=== PATIENT | male | born 1945 | race Caucasian/White ===

== ENCOUNTER → 2016-08-27 | Outpatient (CLI) | payer OTHER ==
[~2016-08-27] MED LIST: ASPEC81 PO; ASPI81TA21 PO; FLM4 PO; GLUCOSAMINE PO; GLUCTAB7 PO; LOSA25TA18 PO; METO50TA7 PO; MULT-506 PO; NTRGSL/4 UT; OMEG10007 PO; PRLSR20 PO; SIMV40TA2 PO; SYN75 PO; TAMS0.4C38 PO
[2016-08-27 14:02] LABS: BLOOD UREA NITROGEN 14 mg/dl (7-18); BUN/CREATININE RATIO 13.1 (10-20); CARBON DIOXIDE 29 mmol/L (21-32); CHLORIDE 107 mmol/L (98-107); CHOLESTEROL 105 mg/dl (0-200); CHOLESTEROL/HDL RATIO 3.8; GLUCOSE 102 mg/dl (70-99); HDL CHOLESTEROL 28 mg/dl; POTASSIUM 4.6 mmol/L (3.5-5.1); SODIUM 143 mmol/L (136-145); TRIGLYCERIDES 109 mg/dl (0-150); VERY LOW DENSITY LIPOPROT CALC 22 mg/dl
[2016-08-27 14:08] LABS: CALCIUM 8.5 mg/dl (8.5-10.1)
[2016-08-27 14:51] LABS: ESTIMATED AVERAGE GLUCOSE 105 mg/dl; HA1C FLAG Normal (Normal)
--- NOTE | 2016-09-02 08:18 | CODING QUERY MEDICAL NECESSITY ---
SUPPORTING DIAGNOSIS NEEDED A supporting diagnosis is required for the test/procedure performed on this patient in order for us to be reimbursed by the patient's insurance. Please provide a supporting diagnosis for the following test/procedure listed below next to the test name along with your signature. *If there is no additional diagnosis for this patient that would support the following test/procedure please document that below next to the test/procedure. Test(s)/Procedure(s) that require a supporting diagnosis: * HEMOGLOBIN A1C DIAGNOSIS: Provider Signature: Date: Thank you Ofe Rey Zalando Information Management Once completed, please kindly fax back to [phone] For questions please call [phone]
== END | disposition home or self-care (01) ==
LOC: C.LABSPEC 12:12
PROVIDERS: ATTEND Internal Medicine
DX: E78.5 Hyperlipidemia, unspecified (principal); I10 Essential (primary) hypertension; N40.1 Benign prostatic hyperplasia with lower urinary tract symptoms; N13.8 Other obstructive and reflux uropathy; R73.9 Hyperglycemia, unspecified

== ENCOUNTER 2017-01-16 15:21 | Inpatient (IN) | payer OTHER ==
[~2017-01-16] VITALS: Ht 180.3 cm; Wt 120.6 kg
[~2017-01-16 15:21] MED LIST changes: -ASPI81TA21 PO; -GLUCTAB7 PO; -SYN75 PO; -TAMS0.4C38 PO
[2017-01-16] MEDS ORDERED: ASPIRIN 81 MG CHEW PO STA (15:35)
[2017-01-16] MEDS: NITROGLYCERIN 0.4 MG SL PER TAB CHARGE SL PRN ×2 (15:47→17:07)
[2017-01-16 15:57] LABS: BASO % 0.6 %; BASO ABS # 0.05 K/uL (0-0.2); COMPLETE YES; HEMATOCRIT 43.1 % (42-52); IG% 0.4 %; LYMPH % 29.8 %; LYMPH ABS # 2.54 K/uL (1.2-3.4); MEAN CELL VOLUME 85.3 fL (80-100); MEAN CORPUSCULAR HEMOGLOBIN 29.7 pg (25-34); MEAN CORPUSCULAR HGB CONC 34.8 g/dl (32-36); MEAN PLATELET VOLUME 9.5 fL (7.4-10.4); MONO % 4.9 %; NEUT % 62.3 %; PLATELET COUNT 142 K/uL (130-400); RED BLOOD COUNT 5.05 M/uL (4.7-6.1); WHITE BLOOD COUNT 8.52 K/uL (4.8-10.8)
--- NOTE | 2017-01-16 15:58 | DIAGNOSTIC IMAGING REPORT ---
SINGLE VIEW CHEST CLINICAL HISTORY: Atypical chest pain. FINDINGS: An AP, portable, upright chest radiograph is compared to chest x-ray and chest CT dated 01/02/2012. The examination is degraded by portable technique, large body habitus, and patient rotation. The patient is status post midline sternotomy. The heart is enlarged and there is atherosclerotic calcification of the thoracic aorta. There is mild pulmonary vascular congestion. There is chronic elevation of right hemidiaphragm with bibasilar atelectasis. No large pleural effusion or pneumothorax is seen. The skeletal structures are osteopenic. The bony thorax is grossly intact. IMPRESSION: 1. Cardiomegaly with mild pulmonary vascular congestion. 2. No airspace consolidation or large pleural effusion is seen. Electronically signed by: Oliver Newman M.D. 01/16/2017 3:57 PM Dictated Date/Time: 01/16/2017 3:56 PM
[2017-01-16] MEDS ORDERED: TAMS0.4C38 PO (16:08)
[2017-01-16] MEDS ORDERED: GLUCTAB7 PO (16:08)
[2017-01-16] MEDS ORDERED: ASPI81TA21 PO (16:08)
[2017-01-16 16:15] LABS: BLOOD UREA NITROGEN 21 mg/dl (7-18); BUN/CREATININE RATIO 18.5 (10-20); CALCIUM 8.7 mg/dl (8.5-10.1); CARBON DIOXIDE 29 mmol/L (21-32); CHLORIDE 108 mmol/L (98-107); CREATININE 1.13 mg/dl (0.60-1.40); GLUCOSE 112 mg/dl (70-99); SODIUM 142 mmol/L (136-145)
[2017-01-16] MEDS ORDERED: NITROGLYCERIN 0.4 MG SL PER TAB CHARGE SL PRN (17:45)
--- NOTE | 2017-01-16 17:47 | DIAGNOSTIC IMAGING REPORT ---
HEAD WITHOUT CONTRAST (CT) CLINICAL HISTORY: 71 years-old Male presenting with blurry vision, chest pain. TECHNIQUE: Multidetector CT imaging of the head was performed without the use of intravenous contrast. IV contrast: None. A dose lowering technique was used consistent with the principles of ALARA (as low as reasonably achievable). COMPARISON: None. CT DOSE (mGy.cm): The estimated cumulative dose is 601.98 mGy.cm. FINDINGS: Tilesetter topogram: Unremarkable. Ventricles and sulci normal in size. Periventricular and subcortical white matter hypoattenuation, nonspecific but likely indicative of chronic small vessel ischemic change. No mass effect or midline shift. No hemorrhage or acute territorial infarct. No extra-axial fluid collection. Paranasal sinuses and mastoid air cells clear. Calvarium intact. IMPRESSION: 1. No acute intracranial pathology. Electronically signed by: Ozzy Esquivel M.D. 01/16/2017 5:45 PM Dictated Date/Time: 01/16/2017 5:44 PM
--- NOTE | 2017-01-16 18:52 | History and Physical ---
History & Physical Date of Service Jan 16, 2017. History & Physical ADMISSION DATE : 01/16/2017 CHIEF COMPLAINT : 71-year-old male admitted with persistent chest pain. He has known coronary artery disease with history of 5 vessel coronary artery bypass graft. PRESENT ILLNESS : Patient with multiple medical problems including coronary artery disease. Status post 5 vessel coronary artery bypass graft in 2005, arterial hypertension , hypercholesterolemia, gastroesophageal reflux, obesity. His last cardiac catheterization was done in 2013 and at that time there were no additional areas of stenosis that required any intervention. Patient was sitting at home around 2:00 in the afternoon wound. He was doing paperwork. He suddenly experienced some feeling in his chest. He had difficulty describing it. He described it as somebody punched in the chest and the area is aching. No radiation of the discomfort. No associated diaphoresis. No shortness of breath. No dizziness or lightheadedness. Did not feel nauseous. He described this pain different than what he has experienced in the past. He does have recurrent chest pain mostly of GI etiology but he described this episode as completely different. His called the office wanted to bring him to the office to be checked but I recommended that she brings him directly to the emergency room. Patient was evaluated by Dr. Whitman. So far all his tests were quite unremarkable. His electrocardiogram did not show any acute changes. His troponin I is normal. He was given sublingual nitroglycerin. That gave him relief. He has not had any recurrent chest pain. During his stay in the emergency room he was complaining of some visual disturbance. He thought the door was not straight. Dr. Whitman ordered a CT scan of the head without contrast and that was done and was quite unremarkable. The episode of the visual disturbance was very short lasting. I saw the patient in the emergency room. He was resting comfortably. Wasa not complaining of any chest pain. In view of that episode of chest pain that he had an his extensive coronary history patient is being admitted for further evaluation. PAST MEDICAL HISTORY : * Coronary artery disease. On 01/01/2006 he was having a dobutamine stress echocardiogram because of chest pain. His test was markedly positive showing evidence of anteroseptal ischemia and marked apical ischemia. He will became hypotensive. He was admitted to the progressive care unit at that time and arrangements were made for transfer to [facility]. Patient was seen by Dr. Yuen and he had a 5 vessel coronary artery bypass graft. The procedure was very well tolerated. He has done well. In 2014 he had recurrent chest pain. He was evaluated by Dr. Tim Bang and had a repeat cardiac catheterization. No new lesions were noted that required any intervention. * Arterial hypertension. Long-standing. Treated. * Hypercholesterolemia. He is on Zocor 40 mg daily with adequate control * Appendectomy in the remote past * Tonsillectomy in the remote past * Known diverticulosis * Long-standing obesity enlargement of the prostate. He is on Flomax. * SOCIAL HISTORY : He is . Had 2 children. He never smoked. No alcohol. No drugs. No excessive coffee or tea or soft drinks. He works in the [employer] business. FAMILY HISTORY : His mother at age 74 of myocardial infarction. His father had Parkinson's disease and heart disease. ALLERGIES : None CURRENT MEDICATIONS : As noted on his home medication list REVIEW OF SYSTEMS : As noted at this time is resting comfortably. No headache or dizziness. No further visual disturbance. No earaches or throat or neck pain. No chest pain pressure or tightness. No shortness of breath. No cough. No sputum or hemoptysis. No abdominal pain no nausea no vomiting. No problem with his bowel movements. No problem urinating. No pain in his back or extremities. No ankle edema. PHYSICAL EXAMINATION : General: Well-developed. No distress. His weight is 118 kg, height 180.3 cm, BMI 36.3. Vital signs: Blood pressure 168/81, pulse 87, respirations 16, temperature 36.8 , oxygen saturation 95% on room air Skin is warm and dry. No rash. He does have multiple areas of subcutaneous lipomas. HEENT: No evidence of any mucosal abnormalities Neck is supple without lymph node or thyroid enlargement. No JVD. No Lawrence pulses. No carotid bruit Chest scar from prior surgery Heart regular heart sounds. No evident murmur rub or gallop. Lungs are clear. No wheezing no rhonchi. Abdomen is obese soft nontender without organomegaly or masses. Surgical scar. Back no spinal or CVA tenderness. Extremities: No edema clubbing or cyanosis. No joint or muscle tenderness. Good pulses. Neurological examination: He is awake alert and oriented. There is no evidence of any deficit. No further visual disturbance. No lateralized deficits. LABORATORY TESTS : WBC count 8520, hemoglobin 15, hematocrit 43.1, platelet count 142,000. Sodium 142, potassium 4.0, chloride 108, CO2 29, BUNs 21, creatinine 1.13, glucose 112, calcium 8.7, total CK 100, MB fraction 2, troponin I less than 0.015. Chest x-ray showed no acute changes or significant abnormalities. CT scan of the head without contrast was normal. ASSESSMENT : * Chest pain * Coronary artery disease * History of 5 vessel coronary artery bypass graft * Arterial hypertension * Hyperlipidemia * Obesity * Gastroesophageal reflux * Episode of visual disturbance. Short lasting. PLAN : Patient is admitted to PCU with telemetry. Resuscitation level I. All his laboratory tests were ordered. Cardiac isoenzymes and serial electrocardiograms were ordered. Echocardiogram was ordered. He was continued on his medications. Also started on topical nitrates. We will wait for the initial evaluation. He will need a stress test done if everything is negative. Otherwise we'll may have to proceed directly to a cardiac catheterization. I spoke with the patient and his family in the emergency room. His condition is stable right now. Explained to them the workup intended.
[2017-01-16 19:32] VITALS: BP 127/66; PULSE 60; TEMP 36.7; O2SAT 96
[2017-01-16 19:51] LABS: PROTHROMBIN TIME (PATIENT) 10.8 SECONDS (9.0-12.0)
[2017-01-16 20:05] LABS: MAGNESIUM 2.1 mg/dl (1.8-2.4); THYROID STIMULATING HORMONE 5.87 uIu/ml (0.300-4.500)
[2017-01-16] MEDS: NITROGLYCERIN OINT 2% 1GM PACKET EXT SCH (20:12)
[2017-01-16] MEDS: ASPIRIN 81 MG ECTAB PO SCH (20:15)
[2017-01-16] MEDS: SIMVASTATIN 40 MG TAB PO SCH (20:15)
--- NOTE | 2017-01-16 21:06 | EMERGENCY ROOM VISIT NOTE ---
History Report prepared by Kanika: Angel Carmichael Under the Supervision of: Dr. Kendell Whitman D.O. First contact with patient: 15:28 Chief Complaint: CHEST PAIN Stated Complaint: CHEST PAIN History of Present Illness The patient is a 71 year old male who presents to the Emergency Room with complaints of constant left sided chest pain beginning one hour ago. He describes his pain as a feeling of "pressure". He has a history of chest pain, but states that his current pain feels unlike his previous pain. The patient has a history of CABG. He took NTG for his symptoms today which improved his pain. He is on baby aspirin daily. The patient denies shortness of breath, nausea, vomiting, diarrhea, or urinary symptoms. He has no personal history of blood clots. Source of History: patient Onset: One hour ago Position: chest (left) Quality: pressure Timing: constant Modifying Factors (Relieving): other (NTG) Associated Symptoms: No SOB, No nausea, No vomiting, No diarrhea, No urinary symptoms Review of Systems See HPI for pertinent positives & negatives. A total of 10 systems reviewed and were otherwise negative. Past Medical & Surgical Medical Problems: (1) CHEST PAIN, ASHD (2) HTN (hypertension) Surgical Problems: (1) Hx of CABG Family History No pertinent family history stated. Social History Smoking Status: Never Smoker Marital Status: Occupation Status: employed Current/Historical Medications Scheduled Aspirin Enteric Coated (Ecotrin Or Generic), 81 MG PO HS Fish Oil (Goldsmith-3), 1 CAP PO DAILY Wmjxlqlnzsz-Xwykrrdethk-Isx C- (Glucosamine Chondroitin), 1 TAB PO QAM Losartan Potassium (Cozaar), 25 MG PO DAILY Metoprolol Succ (Toprol Xl) (Toprol-Xl), 50 MG PO DAILY Multivitamin (Multivitamin), 1 TAB PO DAILY Omeprazole (Prilosec), 20 MG PO DAILY Simvastatin (Zocor), 40 MG PO QPM Tamsulosin Hcl (Flomax), 0.4 MG PO QAM Scheduled PRN Nitroglycerin (Nitrostat), 0.4 MG UT PRN PRN for Chest Pain Allergies Coded Allergies: No Known Allergies (Verified , 01/16/17) Physical Exam Vital Signs Date Time Temp Pulse Resp B/P (MAP) Pulse Ox O2 Delivery O2 Flow Rate FiO2 01/16/17 17:19 91 18 132/75 95 Room Air 01/16/17 17:07 63 18 125/62 97 Room Air 01/16/17 16:19 65 01/16/17 15:50 93 16 136/73 97 Room Air 01/16/17 15:24 36.8 87 16 168/81 95 Room Air Physical Exam GENERAL: Obese, sitting up in bed, nontoxic, no acute distress EYE EXAM: normal conjunctiva. OROPHARYNX: no exudate, no erythema, lips, buccal mucosa, and tongue normal and mucous membranes are moist NECK: supple, no nuchal rigidity, no adenopathy, non-tender LUNGS: Clear to auscultation. Normal chest wall mechanics HEART: no murmurs, S1 normal and S2 normal ABDOMEN: abdomen soft, non-tender, normo-active bowel sounds, no masses, no rebound or guarding. BACK: Back is symmetrical on inspection and there is no deformity, no midline tenderness, no CVA tenderness. SKIN: no rashes and no bruising UPPER EXTREMITIES: upper extremities are grossly normal. LOWER EXTREMITIES: No pitting edema. Calves equal bilaterally. NEURO EXAM: Normal sensorium, cranial nerves II-XII grossly intact, normal speech, no gross weakness of arms, no gross weakness of legs. No drift. Finger to nose intact. Gross sensation intact. Medical Decision & Procedures ER Provider Diagnostic Interpretation: Radiology results as stated below per my review and the radiologist's interpretation: SINGLE VIEW CHEST FINDINGS: An AP, portable, upright chest radiograph is compared to chest x-ray and chest CT dated 01/02/2012. The examination is degraded by portable technique, large body habitus, and patient rotation. The patient is status post midline sternotomy. The heart is enlarged and there is atherosclerotic calcification of the thoracic aorta. There is mild pulmonary vascular congestion. There is chronic elevation of right hemidiaphragm with bibasilar atelectasis. No large pleural effusion or pneumothorax is seen. The skeletal structures are osteopenic. The bony thorax is grossly intact. IMPRESSION: 1. Cardiomegaly with mild pulmonary vascular congestion. 2. No airspace consolidation or large pleural effusion is seen. Electronically signed by: Oliver Newman M.D. 01/16/2017 3:57 PM Laboratory Results 01/16/17 15:45 Red Blood Count 5.05, Mean Corpuscular Volume 85.3, Mean Corpuscular Hemoglobin 29.7, Mean Corpuscular Hemoglobin Concent 34.8, Mean Platelet Volume 9.5, Neutrophils (%) (Auto) 62.3, Lymphocytes (%) (Auto) 29.8, Monocytes (%) (Auto) 4.9, Eosinophils (%) (Auto) 2.0, Basophils (%) (Auto) 0.6, Neutrophils # (Auto) 5.31, Lymphocytes # (Auto) 2.54, Monocytes # (Auto) 0.42, Eosinophils # (Auto) 0.17, Basophils # (Auto) 0.05 01/16/17 15:45 Test 01/16/17 15:45 White Blood Count 8.52 K/uL (4.8-10.8) Red Blood Count 5.05 M/uL (4.7-6.1) Hemoglobin 15.0 g/dL (14.0-18.0) Hematocrit 43.1 % (42-52) Mean Corpuscular Volume 85.3 fL (80-100) Mean Corpuscular Hemoglobin 29.7 pg (25-34) Mean Corpuscular Hemoglobin Concent 34.8 g/dl (32-36) Platelet Count 142 K/uL (130-400) Mean Platelet Volume 9.5 fL (7.4-10.4) Neutrophils (%) (Auto) 62.3 % Lymphocytes (%) (Auto) 29.8 % Monocytes (%) (Auto) 4.9 % Eosinophils (%) (Auto) 2.0 % Basophils (%) (Auto) 0.6 % Neutrophils # (Auto) 5.31 K/uL (1.4-6.5) Lymphocytes # (Auto) 2.54 K/uL (1.2-3.4) Monocytes # (Auto) 0.42 K/uL (0.11-0.59) Eosinophils # (Auto) 0.17 K/uL (0-0.5) Basophils # (Auto) 0.05 K/uL (0-0.2) RDW Standard Deviation 42.1 fL (36.4-46.3) RDW Coefficient of Variation 13.7 % (11.5-14.5) Immature Granulocyte % (Auto) 0.4 % Immature Granulocyte # (Auto) 0.03 K/uL (0.00-0.02) Anion Gap 5.0 mmol/L (3-11) Est Creatinine Clear Calc Drug Dose 80.6 ml/min Estimated GFR () 76.4 Estimated GFR (Non- 66.0 BUN/Creatinine Ratio 18.5 (10-20) Calcium Level 8.7 mg/dl (8.5-10.1) Total Creatine Kinase 100 U/L (39-308) Creatine Kinase MB 2.0 ng/ml (0.5-3.6) Creatine Kinase MB Ratio 2.0 (0-3.0) Troponin I < 0.015 ng/ml (0-0.045) Laboratory results per my review. Medications Administered Medications (Trade) Dose Ordered Sig/Venkatesh Route Start Time Stop Time Status Last Admin Dose Admin Aspirin (Aspirin Chew) 324 mg NOW STAT PO 01/16/17 15:35 01/16/17 15:36 DC 01/16/17 15:47 324 MG Nitroglycerin (Nitrostat Tab) 0.4 mg Q5M PRN SL 01/16/17 15:45 01/16/17 19:21 DC 01/16/17 17:07 0.4 MG ECG Indication: chest pain Rate (beats per minute): 52 Rhythm: sinus bradycardia Findings: Q waves (Inferior), other (normal intervals) Change: Repeat ECG reveals a sinus bradycardia with a rate of 53 bpm. Inferior Q waves noted. No ectopy seen. No significant change from previous ECG. ED Course ED COURSE: Vital signs were reviewed and showed hypertension The patients medical record was reviewed The above diagnostic studies were performed and reviewed. ED treatments and interventions as stated above. 1529: The patient was evaluated in room B11B. A complete history and physical examination was performed. 1535: Ordered Aspirin Chew 324 mg PO. 1545: Ordered Nitrostat 0.4 mg SL. 1600: I reassessed the patient. His pain has resolved completely with nitroglycerin. 1715: Upon reevaluation, the patient is resting comfortably. He notes that he has had blurry vision since arrival and the door currently appears curved. I discussed my findings with the patient and he understands and agrees with the treatment plan. Based on the patients age, coexisting illnesses, exam and lab findings the decision to treat as an inpatient was made. The patient remained stable while under my care. The patient will be evaluated for further management. Medical Decision Differential diagnoses includes but is not limited to acute coronary syndrome, myocardial infarction, pericarditis, pulmonary embolus, aortic dissection, pneumonia, pneumothorax, musculoskeletal, shingles, esophageal. Patient is a 71-year-old male who presents to ER for chest pressure which started around 2:30 this afternoon. He denies any shortness of breath. He notes nitroglycerin helped with the pain. Upon arrival he said it is still having the pain. He was given nitroglycerin and he said the pain completely resolved. Later in his evaluation he admits pain never really went away and he also is having blurry vision. CT head was performed and was given additional nitroglycerin. CT head was negative. EKG was nondiagnostic. Troponin was negative. Chest x-ray was unremarkable. Patient was updated bedside. He is admitted to internal medicine with precordial chest pain improved by nitroglycerin with a history of a previous bypass. Medication Reconcilliation Current Medication List: was personally reviewed by me Blood Pressure Screening Patient's blood pressure: Elevated blood pressure Blood pressure disposition: Elevated BP felt to be situational Consults Time Called: 1703 Consulting Physician: Dr. Camarena [facility] Returned Call: 1715 I reviewed the patient's case with Dr. Camarena. He will evaluate the patient for further management. Impression Primary Impression: Precordial chest pain Additional Impression: Blurry vision Scribe Attestation The scribe's documentation has been prepared under my direction and personally reviewed by me in its entirety. I confirm that the note above accurately reflects all work, treatment, procedures, and medical decision making performed by me. Departure Information Dispostion Being Evaluated By Hospitalist Referrals Trev Castellanos M.D. (PCP) Patient Instructions My [facility] Problem Qualifiers
[2017-01-16 21:12] VITALS: BP 127/66; PULSE 60; TEMP 36.7; O2SAT 96; Ht 180.3 cm; Wt 120.6 kg
[2017-01-16] MEDS: HEPARIN SOD 5000 UNIT/0.5 ML CARP SQ SCH (21:39)
[2017-01-16 23:01] VITALS: BP 119/66; PULSE 62; TEMP 36.5; O2SAT 96
[2017-01-17] VITALS (10 sets, daily range): BP systolic 122–155; BP diastolic 68–80; PULSE 53–65; TEMP 36.6–37; O2SAT 95–97
[2017-01-17] MEDS: NITROGLYCERIN OINT 2% 1GM PACKET EXT SCH ×2 (00:15→06:26)
[2017-01-17 01:30] LABS: CKMB/CK RATIO 1.7 (0-3.0)
[2017-01-17] MEDS: ACETAMINOPHEN 325 MG TAB PO PRN ×2 (05:19→09:54)
[2017-01-17] MEDS: HEPARIN SOD 5000 UNIT/0.5 ML CARP SQ SCH ×3 (06:00→21:35)
[2017-01-17] MEDS: LEVOTHYROXINE 75 MCG TAB PO SCH (06:26)
[2017-01-17 07:15] LABS: BLOOD UREA NITROGEN 18 mg/dl (7-18); BUN/CREATININE RATIO 16.4 (10-20); CALCIUM 8.8 mg/dl (8.5-10.1); CARBON DIOXIDE 30 mmol/L (21-32); CHLORIDE 106 mmol/L (98-107); GLUCOSE 109 mg/dl (70-99); POTASSIUM 4.2 mmol/L (3.5-5.1); SODIUM 140 mmol/L (136-145)
[2017-01-17 07:16] LABS: CKMB/CK RATIO 2.3 (0-3.0)
[2017-01-17] MEDS: TAMSULOSIN HCL 0.4 MG CAP PO SCH (08:13)
[2017-01-17] MEDS: METOPROLOL SUCC 50MG EXT REL TAB PO SCH (08:14)
[2017-01-17] MEDS: PANTOprazole SOD 40 MG TAB PO SCH (08:14)
[2017-01-17] MEDS: LOSARTAN POTASSIUM 25 MG TAB PO SCH (08:14)
[2017-01-17] MEDS: MULTIVITAMIN TAB PO SCH (08:14)
[2017-01-17 10:23] LABS: BASO % 0.4 %; BASO ABS # 0.04 K/uL (0-0.2); COMPLETE YES; EOS % 1.8 %; HEMATOCRIT 47.6 % (42-52); IG% 0.3 %; LYMPH % 21.1 %; LYMPH ABS # 2.19 K/uL (1.2-3.4); MEAN CELL VOLUME 85.9 fL (80-100); MEAN CORPUSCULAR HEMOGLOBIN 29.2 pg (25-34); MEAN PLATELET VOLUME 9.9 fL (7.4-10.4); MONO % 5.5 %; NEUT % 70.9 %; PLATELET COUNT 153 K/uL (130-400); RED BLOOD COUNT 5.54 M/uL (4.7-6.1); WHITE BLOOD COUNT 10.36 K/uL (4.8-10.8)
--- NOTE | 2017-01-17 10:26 | ECHOCARDIOGRAM REPORT ---
*NOTICE TO RECEIVING [employer]Y This information is strictly Confidential and protected under [place] law. [place] law prohibits you from making any further disclosure of this information unless further disclosure is expressly permitted by the written consent of the person to whom it pertains or is authorized by law. A general authorization for the release of medical or other information is not sufficient for this purpose. Hospital accepts no responsibility if the information is made available to any other person, INCLUDING THE PATIENT. Interpretation Summary * Name: SABRINA DE LEON Study Date: 01/17/2017 08:50 AM BP: 155/74 mmHg * Patient Location: .[facility]\S\N285\S\2 HR: 57 * : 1945 (M/d/yyyy) Gender: Male Height: 71 in * Age: 71 yrs Ethnicity: [place] Weight: 260 lb * Ordering Physician: Trev Castellanos * Performed By: Ambika Overton RDCS * * Reason For Study: CHEST PAIN * BSA: 2.4 m2 * -- Conclusions -- * The study was technically limited. * The left ventricular ejection fraction is grossly normal. * Grade I diastolic dysfunction, (abnormal relaxation pattern). * There is mild mitral annular calcification. * Right ventricular systolic pressure is normal. Procedure Details * A complete two-dimensional transthoracic echocardiogram was performed (2D, M-mode, Doppler and color flow Doppler). * A contrast injection of Definity was performed to improve assessment of LV function. * Contrast was injected into an intravenous site in the left arm. * One vial of Definity ultrasound contrast was diluted in normal saline to a total volume of 10 ml. A total of '3' ml of solution was administered during imaging. * Lot # [id number] of Definity utilized for procedure. * Expiration date 02/23. * The attending nurse who injected the contrast agent was VINCENT ESPINOZA RN. * The study was technically limited. Left Ventricle * The left ventricle is grossly normal size. * Ejection Fraction = 60-65%. * The left ventricular ejection fraction is grossly normal. * Grade I diastolic dysfunction, (abnormal relaxation pattern). * The left ventricular wall motion is normal. Right Ventricle * The right ventricle is not well visualized. Atria * The left atrium is not well visualized. * Right atrium not well visualized. Mitral Valve * The mitral valve is grossly normal. * There is mild mitral annular calcification. * Significant mitral regurgitation is absent. Tricuspid Valve * The tricuspid valve is not well visualized. * There is mild tricuspid regurgitation. * Right ventricular systolic pressure is normal. Aortic Valve * The aortic valve is not well visualized. * No hemodynamically significant valvular aortic stenosis. * There is no significant aortic regurgitation. Pericardium/Pleural * There is no pericardial effusion. MMode 2D Measurements and Calculations IVSd 1.1 cm IVSs 1.2 cm LVIDd 4.8 cm LVIDs 3.1 cm LVPWd 1.4 cm LVPWs 1.7 cm IVS/LVPW 0.81 FS 35.2 % EDV(Teich) 105.4 ml ESV(Teich) 37.5 ml EF(Teich) 64.4 % EDV(cubed) 107.8 ml ESV(cubed) 29.4 ml EF(cubed) 72.8 % % IVS thick 13.6 % % LVPW thick 24.3 % LV mass(C)d 223.3 grams LV mass(C)dI 94.7 grams/m\S\2 LV mass(C)s 157.7 grams LV mass(C)sI 66.9 grams/m\S\2 SV(Teich) 67.9 ml SI(Teich) 28.8 ml/m\S\2 SV(cubed) 78.4 ml SI(cubed) 33.3 ml/m\S\2 ACS 1.3 cm asc Aorta Diam 3.5 cm LVOT diam 1.9 cm LVOT area 2.9 cm\S\2 LVAd ap4 29.9 cm\S\2 LVLd ap4 8.2 cm EDV(MOD-sp4) 89.3 ml EDV(sp4-el) 92.6 ml LVAs ap4 16.2 cm\S\2 LVLs ap4 6.5 cm ESV(MOD-sp4) 32.7 ml ESV(sp4-el) 34.3 ml EF(MOD-sp4) 63.3 % EF(sp4-el) 63.0 % SV(MOD-sp4) 56.6 ml SI(MOD-sp4) 24.0 ml/m\S\2 SV(sp4-el) 58.3 ml SI(sp4-el) 24.7 ml/m\S\2 Doppler Measurements and Calculations MV E max denny 94.0 cm/sec MV A max denny 116.7 cm/sec MV E/A 0.81 MV dec time 0.30 sec Ao V2 max 102.7 cm/sec Ao max PG 4.2 mmHg Ao max PG (full) 0.02 mmHg HOLLI(V,A) 2.9 cm\S\2 HOLLI(V,D) 2.9 cm\S\2 LV V1 max PG 4.2 mmHg LV V1 max 102.4 cm/sec PA V2 max 72.3 cm/sec PA max PG 2.1 mmHg TR max denny 232.5 cm/sec
--- NOTE | 2017-01-17 10:48 | Progress Note ---
Progress Note Date of Service Jan 17, 2017. Progress Note 71-year-old male admitted with chest pain. He has known coronary artery disease with history of 5 vessel coronary artery bypass graft many years ago. His medical problems also include arterial hypertension, obesity, hyperlipidemia, gastroesophageal reflux. Patient was admitted. Cardiac isoenzymes have been negative. Repeat electrocardiogram is not showing any acute changes. Overall he is doing well. He did have some short lasting episodes of chest pain during the night. Without any other associated symptoms. No diaphoresis. No shortness of breath. No lightheadedness. No nausea. EXAMINATION : GENERAL: Well-developed. Obese. VITAL SIGNS: 131/68, pulse 62, respirations 16, temperature 36.7, oxygen saturation 97% on room air SKIN: Warm and dry. No rash. HEENT: No mucosal abnormalities. NECK: Supple. No tenderness. No JVD. HEART: Regular heart sounds. LUNGS: Clear. ABDOMEN: Obese soft nontender BACK: No spinal tenderness EXTREMITIES: No edema clubbing or cyanosis LABORATORY TESTS : WBC count 10,360, hemoglobin 16.2, hematocrit 47.2, platelet count 153,000. Sodium 140, potassium 4.2, chloride 106, CO2 30, BUNs 18, creatinine 1.1, glucose 109, calcium 8.8, total CK 83, MB fraction 1.9, troponin I less than 0.015. His TSH was elevated to 5.87. His total T4 was 7.9. He had his echocardiogram done at this morning. It was read by Dr. Floyd Gray. He described the study as technically difficult. The left ventricular ejection fraction was grossly normal. He had grade 1 diastolic dysfunction. He did have some mitral valve calcification. The right ventricular systolic pressure was normal. The ejection fraction was 60-65% that is the left ventricle. There was no wall motion abnormality. ASSESSMENT : * Chest pain * Coronary artery disease with history of 5 vessel coronary artery bypass graft * Arterial hypertension * Hyperlipidemia * Obesity * Gastroesophageal reflux PLAN : * Continue the same medications * Given the results of his echocardiogram and the fact that it is described as technically limited I have ordered a dobutamine stress echocardiogram to be done on Thursday. I will change that to a Lexiscan because of the quality of the echocardiogram. I think the Lexiscan will be more helpful. I did speak with Dr. Gray. * Encouraged to ambulate * Continue the same medications * We will wait for his Lexiscan. I think this would be the best test for him given the fact that he cannot exercise on the treadmill for a sufficient amount of time because of back and hip pain. Also given the fact that the echocardiogram windows were not of good quality.
[2017-01-17 12:36] LABS: CKMB/CK RATIO 1.6 (0-3.0)
[2017-01-17] MEDS: SIMVASTATIN 40 MG TAB PO SCH (21:09)
[2017-01-17] MEDS: ASPIRIN 81 MG ECTAB PO SCH (21:09)
[2017-01-18] VITALS (9 sets, daily range): BP systolic 119–168; BP diastolic 65–80; PULSE 53–62; TEMP 36.3–36.9; O2SAT 95–97
[2017-01-18] MEDS: HEPARIN SOD 5000 UNIT/0.5 ML CARP SQ SCH ×3 (05:56→21:52)
[2017-01-18 06:05] LABS: BASO % 0.9 %; BASO ABS # 0.06 K/uL (0-0.2); COMPLETE YES; HEMATOCRIT 44.1 % (42-52); IG% 0.3 %; LYMPH % 27.3 %; LYMPH ABS # 1.92 K/uL (1.2-3.4); MEAN CELL VOLUME 85.5 fL (80-100); MEAN CORPUSCULAR HEMOGLOBIN 29.8 pg (25-34); MEAN CORPUSCULAR HGB CONC 34.9 g/dl (32-36); MEAN PLATELET VOLUME 9.6 fL (7.4-10.4); MONO % 6.7 %; NEUT % 61.8 %; PLATELET COUNT 127 K/uL (130-400); RED BLOOD COUNT 5.16 M/uL (4.7-6.1); WHITE BLOOD COUNT 7.03 K/uL (4.8-10.8)
[2017-01-18] MEDS: LEVOTHYROXINE 75 MCG TAB PO SCH (06:06)
[2017-01-18 06:38] LABS: BUN/CREATININE RATIO 15.9 (10-20); CALCIUM 8.5 mg/dl (8.5-10.1); CREATININE 1.05 mg/dl (0.60-1.40); POTASSIUM 4.1 mmol/L (3.5-5.1)
[2017-01-18] MEDS: MULTIVITAMIN TAB PO SCH (08:09)
[2017-01-18] MEDS: LOSARTAN POTASSIUM 25 MG TAB PO SCH (08:10)
[2017-01-18] MEDS: TAMSULOSIN HCL 0.4 MG CAP PO SCH (08:10)
[2017-01-18] MEDS: PANTOprazole SOD 40 MG TAB PO SCH (08:10)
[2017-01-18] MEDS: METOPROLOL SUCC 50MG EXT REL TAB PO SCH (08:10)
--- NOTE | 2017-01-18 11:18 | Progress Note ---
Progress Note Date of Service Jan 18, 2017. Progress Note 71-year-old male admitted with acute onset of left-sided chest pain. He has severe coronary artery disease has had a prior 5 vessel coronary artery bypass graft. He also has arterial hypertension, hyperlipidemia, obesity, gastroesophageal reflux and dyspepsia. Patient was admitted. Cardiac isoenzymes were negative for any evidence of myocardial injury. Electrocardiogram showed no acute changes. Echocardiogram was limited study but there was no evidence of any obvious wall motion abnormality. Overall he is doing well. He has not had recurrent chest pain. No shortness of breath. He has been ambulating in the hallway. Tolerating his diet. No nausea no vomiting. No heartburn. No pain in his back or extremities. No ankle edema. EXAMINATION : GENERAL: Well-developed. No distress. VITAL SIGNS: 168/80, pulse 62, respiration 20, temperature 36.3, oxygen saturation 97% on room air SKIN: Warm and dry. No rash. HEENT: Completely unremarkable. NECK: No adenopathy. No JVD. HEART: Regular heart sounds. LUNGS: Clear. ABDOMEN: Obese soft nontender. BACK: No spinal tenderness. EXTREMITIES: No edema clubbing or cyanosis. LABORATORY TESTS : WBC count 7030, hemoglobin 15.4, hematocrit 44.1, platelet count 127,000. Sodium 139, potassium 4.1, chloride 107, CO2 29, BUNs 17, creatinine 1.05, glucose 104, calcium 8.5. ASSESSMENT : * Chest pain * Coronary artery disease * Arterial hypertension * Hyperlipidemia * Obesity * Dyspepsia and gastroesophageal reflux PLAN : * Continue all his medications unchanged * I did discontinue his nitroglycerin ointment yesterday because of persistent headaches. Resolved. * Continue ambulation * Lexiscan is for tomorrow. Depending on the results will decide on any further evaluation or any testing or any adjustment in his treatment.
[2017-01-18] MEDS: SIMVASTATIN 40 MG TAB PO SCH (20:48)
[2017-01-18] MEDS: ASPIRIN 81 MG ECTAB PO SCH (20:48)
[2017-01-19] VITALS (7 sets, daily range): BP systolic 109–145; BP diastolic 55–83; PULSE 52–62; TEMP 36.5–36.7; O2SAT 94–98
[2017-01-19] MEDS: HEPARIN SOD 5000 UNIT/0.5 ML CARP SQ SCH ×2 (05:39→11:36)
[2017-01-19 06:24] LABS: BASO % 0.9 %; BASO ABS # 0.08 K/uL (0-0.2); COMPLETE YES; EOS % 2.9 %; HEMATOCRIT 46.7 % (42-52); IG% 0.2 %; LYMPH % 32.1 %; LYMPH ABS # 2.73 K/uL (1.2-3.4); MEAN CELL VOLUME 85.2 fL (80-100); MEAN CORPUSCULAR HEMOGLOBIN 29.6 pg (25-34); MEAN CORPUSCULAR HGB CONC 34.7 g/dl (32-36); MEAN PLATELET VOLUME 9.4 fL (7.4-10.4); MONO % 5.2 %; NEUT % 58.7 %; PLATELET COUNT 146 K/uL (130-400); RED BLOOD COUNT 5.48 M/uL (4.7-6.1); WHITE BLOOD COUNT 8.51 K/uL (4.8-10.8)
[2017-01-19 06:55] LABS: BUN/CREATININE RATIO 15.7 (10-20); CALCIUM 8.9 mg/dl (8.5-10.1); CREATININE 1.16 mg/dl (0.60-1.40); POTASSIUM 4.1 mmol/L (3.5-5.1)
[2017-01-19] MEDS: LEVOTHYROXINE 75 MCG TAB PO SCH ×2 (07:14→10:48)
[2017-01-19] MEDS ORDERED: REGADENOSON 0.4 MG/5 ML SYR ONE (08:43)
[2017-01-19] MEDS: PANTOprazole SOD 40 MG TAB PO SCH (11:34)
[2017-01-19] MEDS: MULTIVITAMIN TAB PO SCH (11:35)
[2017-01-19] MEDS: METOPROLOL SUCC 50MG EXT REL TAB PO SCH (11:35)
[2017-01-19] MEDS: LOSARTAN POTASSIUM 25 MG TAB PO SCH (11:36)
[2017-01-19] MEDS: TAMSULOSIN HCL 0.4 MG CAP PO SCH (11:36)
--- NOTE | 2017-01-19 13:47 | Myocardial Perfusion Study ---
Myocardial Perfusion Study Rpt Myocardial Perfusion Study Rpt Date of Service 01/19/2017 Myocardial Perfusion Study Rpt Procedure: 1. Myocardial perfusion study performed in multiple views/images 2. Lexiscan pharmacologic stress ECG Indications: 1. Chest pain 2. CAD Consent: Informed written consent was obtained prior to the procedure. Ordering physician: Dr. Camarena Procedural details: For the stress portion of the study, Lexiscan 0.4 mg was intravenously administered followed by a saline flush. This was followed by 31.3 mCi of technetium 99m Cardiolite, injected at 9:45 a.m. on 01/19/2017. 30 minutes following the injection, imaging of the heart was performed in multiple projections. For the rest portion of the study, 10.4 mCi technetium 99m Cardiolite was injected intravenously at 7:50 a.m. on 01/19/2017. 1 hour following the injection, imaging of the heart was performed in the same projections. Lexiscan stress ECG: Resting ECG demonstrated: Sinus bradycardia at 58 bpm. Maximum heart rate: 88 bpm Resting blood pressure: 126/86 mmHg Maximum blood pressure: 143/67 mmHg Maximal, age-predicted heart rate: 58 % Significant ST changes: None Arrhythmia: None Symptoms: [place] warm/flush. No chest pain. Findings: Rotating raw imaging demonstrated no significant lung uptake. There is no significant motion artifact. Heart size appeared normal. Myocardial perfusion demonstrated a small area of mildly reduced uptake involving the apical anteroseptum, which appears fixed in post stress and rest imaging. This defect appeared worse in the rest imaging. No significant reversible defect. Ejection fraction: 68 % Wall motion: Normal No significant transient ischemic dilation. Impression: 1. Negative Lexiscan myocardial perfusion study for ischemic changes. 2. Small, fixed apical anteroseptal defect may represent attenuation artifact given normal wall motion. 3. Normal left ventricular systolic function. EF 68%. 4. Normal wall motion. 5. No chest pain. 6. Nondiagnostic Lexiscan ECG.
--- NOTE | 2017-01-19 15:07 | Discharge Instructions ---
Discharge Instructions Date of Service Jan 19, 2017. Admission Reason for Admission: Chest Pain, Coronary artery disease Arterial hypertension Hyperlipidemia hypothyroidism Obesity Gastroesophageal reflux Discharge Discharge Diagnosis / Problem: chest pain, coronary artery disease, arterial hypertension, Discharge Goals Goal(s): Decrease discomfort, Improve function, Increase independence, Improve disease control, Improve nutritional status Activity Recommendations Activity Limitations: resume your previous activity . Instructions / Follow-Up Instructions / Follow-Up appointment as scheduled in the office Current Hospital Diet Patient's current hospital diet: AHA Diet (Heart Healthy) Discharge Diet Recommended Diet: AHA Diet (Heart Healthy) Pending Studies Studies pending at discharge: no Medical Emergencies . Who to Call and When: Medical Emergencies: If at any time you feel your situation is an emergency, please call 911 immediately. . Non-Emergent Contact Non-Emergency issues call your: Primary Care Provider . . "Provider Documentation" section prepared by Trev Camarena. . VTE Core Measure Inpt VTE Proph given/why not?: Treatment not indicated
[2017-01-19] MEDS ORDERED: SYN75 PO (15:09)
--- NOTE | 2017-01-19 20:11 | Progress Note ---
Progress Note Date of Service Jan 19, 2017. Progress Note 71-year-old male admitted with chest pain. He does have coronary artery disease. He has had a 5 vessel coronary artery bypass graft in the past. His medical problems also include ocular hypertension, obesity, hyperlipidemia, and gastroesophageal reflux. Patient was admitted. Cardiac isoenzymes showed no evidence of myocardial infarction. Electrocardiogram did not show any acute changes. Echocardiogram was of limited quality. But there was no evidence of a new wall motion abnormality. Patient remained asymptomatic after his admission. He had no chest pain. No shortness of breath. No abdominal pain no nausea no vomiting. No pain in back pain his back or extremities.he has been ambulating. Today patient did have a Lexiscan done. there was no evidence of any ischemia. EXAMINATION: GENERAL : Well developed. Well nourished. No acute distress. VITAL SIGNS : Blood Pressure : 145/83, pulse 57, respirations 16, temperature 36.6, oxygen saturation 94% on room air SKIN : Warm and dry HEENT :No evidence of any mucosal abnormalities NECK : Supple. No adenopathy. No thyromegaly. No JVD. HEART: Regular heart sounds without any murmur rub or gallop. LUNGS: Clear. Normal breath sounds. ABDOMEN: Soft nontender. No organomegaly or masses. EXTREMITIES : No edema clubbing or cyanosis. No joint or muscle tenderness. Good peripheral pulses. LABORATORY TESTS: WBC count 8510, hemoglobin 16.2, hematocrit 46.7, platelet count 146,000. Sodium 140, potassium 4.1 chloride 103, CO2 29, BUN 18, creatinine 1.16, glucose 104, calcium 8.9. ASSESSMENT: * chest pain. Noncardiac. Based on his workup. * Coronary artery disease * Arterial hypertension * Hyperlipidemia * Obesity * newly diagnosed hypothyroidism PLAN: * as noted all his workup was completed. He had Lexiscan. It was unremarkable for any ischemia. Normal ejection fraction. * patient was discharged today. He was continued on the same medications except for the addition of the levothyroxine 75 mcg daily. * No limitation as far as his activity * Followup in the office in one week
== END 2017-01-19 15:50 | disposition home or self-care (01) | DRG 313 ==
LOC: C.EDB 15:22 → C.MED 17:49 → ENRESERV 18:06
PROVIDERS: ADMIT Internal Medicine; ATTEND Internal Medicine
DX: R07.2 Precordial pain (principal); I25.10 Atherosclerotic heart disease of native coronary artery without angina pectoris; I10 Essential (primary) hypertension; K21.9 Gastro-esophageal reflux disease without esophagitis; E78.00 Pure hypercholesterolemia, unspecified; E03.9 Hypothyroidism, unspecified; E66.9 Obesity, unspecified; Z68.37 Body mass index [BMI] 37.0-37.9, adult; Z79.82 Long term (current) use of aspirin; Z79.899 Other long term (current) drug therapy; Z95.1 Presence of aortocoronary bypass graft

== ENCOUNTER → 2017-02-20 | Outpatient (CLI) | payer OTHER ==
[~2017-02-20] MED LIST changes: -ASPEC81 PO; +ASPI81TA21 PO; -FLM4 PO; -GLUCOSAMINE PO; +GLUCTAB7 PO; +SYN75 PO; +TAMS0.4C38 PO
[2017-02-20 13:54] LABS: THYROID STIMULATING HORMONE 1.16 uIu/ml (0.300-4.500)
== END | disposition home or self-care (01) ==
LOC: C.LABSPEC 12:29
PROVIDERS: ATTEND Internal Medicine
DX: E03.9 Hypothyroidism, unspecified (principal)

== ENCOUNTER → 2017-05-29 | Outpatient (CLI) | payer OTHER ==
[~2017-05-29] MED LIST changes: -METO50TA7 PO; +METO50TA8 PO
[2017-05-29 13:30] LABS: HEMOGLOBIN A1C 5.3 % (4.5-5.6)
[2017-05-29 13:42] LABS: BLOOD UREA NITROGEN 15 mg/dl (7-18); CALCIUM 8.6 mg/dl (8.5-10.1); CARBON DIOXIDE 28 mmol/L (21-32); GLUCOSE 103 mg/dl (70-99); POTASSIUM 3.9 mmol/L (3.5-5.1); SODIUM 138 mmol/L (136-145)
[2017-05-29 13:53] LABS: CHOLESTEROL 111 mg/dl (0-200); LDL CHOLESTEROL (DIRECT) 83 mg/dl
--- NOTE | 2017-06-12 08:12 | CODING QUERY MEDICAL NECESSITY ---
CQSUPPORTING DIAGNOSIS NEEDED A supporting diagnosis is required for the test/procedure performed on this patient in order for us to be reimbursed by the patient's insurance. Please provide a supporting diagnosis for the following test/procedure listed below next to the test name along with your signature. *If there is no additional diagnosis for this patient that would support the following test/procedure please document that below next to the test/procedure. Test(s)/Procedure(s) that require a supporting diagnosis: DOS 05/29/17 GLYCATED HEMOGLOBIN TEST Provider Signature: Date: Thank you Narda Guerrero Health Information Management Once completed, please kindly fax back to [phone] For questions please call [phone]
== END | disposition home or self-care (01) ==
LOC: C.LABSPEC 12:30
PROVIDERS: ATTEND Internal Medicine
DX: Z00.00 Encounter for general adult medical examination without abnormal findings (principal); E78.5 Hyperlipidemia, unspecified; E03.9 Hypothyroidism, unspecified

== ENCOUNTER → 2017-10-02 | Outpatient (CLI) | payer OTHER ==
[~2017-10-02] MED LIST changes: +ASPI-319 PO; -ASPI81TA21 PO
== END | disposition home or self-care (01) ==
LOC: C.LABSPEC 13:03
PROVIDERS: ATTEND Urology
DX: R97.20 Elevated prostate specific antigen [PSA] (principal)

== ENCOUNTER 2019-05-19 11:17 | Observation (INO) ==
[2019-05-19] MEDS ORDERED: NITROGLYCERIN SL 0.4 MG/TAB TAB SL STA (11:59)
[2019-05-19] MEDS ORDERED: ASPIRIN CHEW 324 MG PO STA (11:59)
--- NOTE | 2019-05-19 11:59 | Emergency Department Note ---
ED Provider Note NAME: SABRINA DE LEON AGE: 73 SEX: M ARRIVES VIA: Walk-In INFORMANT: Patient, ED PROVIDER(S): Kendell Whitman DO CHIEF COMPLAINT: Chest pain and shortness of breath MEDICAL DECISION MAKING: Patient is a 73-year-old male with a past medical history CABG who presents the ER for chest pain and shortness of breath for the past week which is been getting worse. Chest pain and shortness of breath is exertional but he notes he always has some pain there. Outside rest there are no other exacerbating or remitting factors. He does have a history of hypertension hyperlipidemia as well as hyperglycemia. IV was established blood work was obtained and shows no significant leukocytosis or anemia. INR was unremarkable. D-dimer was negative as the pain was slightly pleuritic. BMP along with LFTs bilirubin show a slightly elevated glucose at 102. Troponin was negative. BMP was unremarkable. Lipase was normal. Chest x-ray without any focal infiltrate but did show some vascular congestion. EKG was fairly unremarkable. Patient was given nitro and aspirin with no significant improvement or change. Did discuss with the hospitalist for observation although unlikely with his extensive history could be cardiac. Triage Nursing notes reviewed and agree them. Additional history obtained from Prior medical records reviewed Vital Signs: reviewed and remarkable for hypertension Differential diagnosis: Differential diagnoses includes but is not limited to acute coronary syndrome, myocardial infarction, pericarditis, pulmonary embolus, aortic dissection, pneumonia, pneumothorax, musculoskeletal, shingles, esophageal. ER treatment provided: See above Diagnostics interpreted by me: ECG: Sinus bradycardia. Normal axis. No PVCs. T WI V1. No change from 01/18/2017. Cardiac Monitoring: Sinus rhythm rate of 61 Laboratory studies: See below Imaging studies: Chest x-ray without focal infiltrate on the 1 view study but mild congestive changes. Consultation(s): Discussed with hospitalist for observation. HPI: Patient is a 73-year-old male with a past medical history of CABG, hypertension, hyperlipidemia that presents the ER for chest pain which started at 7 AM this morning. He notes that has been present all week and waxes and wanes but is fairly consistent. Symptoms are worse with exertion. He does admit to shortness of breath when he gets this chest pain as well. He had his CABG in 2005. He denies any arm or jaw pain. He describes the pain is dull and is also worse with breathing. Patient denies swelling of calves, recent trips, history of immobilization or recent surgery, prior history of DVT, hemoptysis, and history of malignancy. No other exacerbating or remitting factors. ROS: See above HPI for pertinent positives & negatives. A total of 10 systems reviewed and were otherwise negative. PAST MEDICAL HISTORY:See Below PAST SURGICAL HISTORY:See Below FAMILY HISTORY:See Below SOCIAL HISTORY:See Below HOME MEDICATIONS:See Below ALLERGIES:See Below VITALS:See Below PHYSICAL EXAMINATION: GENERAL: Sitting up in bed, alert, obese, no distress, non-toxic EYE EXAM: normal conjunctiva. OROPHARYNX: no exudate, no erythema, lips, buccal mucosa, and tongue normal and mucous membranes are moist NECK: supple, no nuchal rigidity, no adenopathy, non-tender LUNGS: Clear to auscultation. Normal chest wall mechanics HEART: S1 normal and S2 normal ABDOMEN: abdomen soft, non-tender, normo-active bowel sounds, no masses, no rebound or guarding. BACK: Back is symmetrical on inspection and there is no deformity, no midline tenderness, no CVA tenderness. SKIN: no rashes and no bruising UPPER EXTREMITIES: upper extremities are grossly normal. LOWER EXTREMITIES: No pitting edema. equal B/L NEURO EXAM: Normal sensorium, cranial nerves II-XII grossly intact, normal spe ech, no gross weakness of arms, no gross weakness of legs. ED COURSE: Procedures: none Critical Care: None Impression & Plan Chest pain, HTN (hypertension), CAD (coronary artery disease), S/P CABG x 5 Past Med/Surg History Medical History (Updated 05/19/19 @ 19:53 by Kendell Whitman DO) CAD (coronary artery disease) (Acute) GERD (gastroesophageal reflux disease) HLD (hyperlipidemia) HTN (hypertension) (Chronic) Hypothyroidism Obesity Surgical History (Updated 05/19/19 @ 19:53 by Kendell Whitman DO) S/P CABG x 5 (Acute) Family History Father Coronary heart disease S/p CABG in his 60's. Mother Coronary heart disease at age 74 due to cardiac arrest. Social History Preferred Language: [place] Communication Ability: Effective Channel [employer] Operator Required: No Beliefs That Will Affect Care: None Current Living Situation: Spouse Other Information That Helps Us Care for You: No Feels Safe at Home: Yes Safety Concerns: Feels Safe At This Time Smoking Status: Never smoker Do You Dip or Chew Tobacco: No ; Second Hand Exposure: No ; Tobacco Cessation Education Requested by Patient: No Hx Alcohol Use: No Hx Substance Use: No Results & Data Vital Signs Vital Signs - 24 hr 05/19/19 11:19 05/19/19 11:50 05/19/19 13:35 Temperature 37.1 C Temperature Source Oral Pulse Rate 68 Pulse Rate [Apical] 62 56 L Pulse Rhythm Regular Pulse Rhythm [Apical] Regular Pulse Strength Normal Respiratory Rate 16 19 20 Respiratory Effort / Characteristics Non-Labored Non-Labored SOB on Exertion Respiratory Depth Normal Normal Respiratory Pattern Regular Blood Pressure 176/91 H Blood Pressure [Right Arm] 131/68 152/64 H Blood Pressure Mean 119 Blood Pressure Mean [Right Arm] 89 93 Blood Pressure Position Sitting Blood Pressure Position [Right Arm] Sitting Pulse Oximetry 94 95 97 Oxygen Delivery Method Room Air Room Air Room Air Sepsis Recent Fever Within 48 Hours No Sepsis Action Taken by Nursing No Action Required 05/19/19 14:30 Temperature Temperature Source Pulse Rate Pulse Rate [Apical] 75 Pulse Rhythm Pulse Rhythm [Apical] Pulse Strength Respiratory Rate 16 Respiratory Effort / Characteristics Respiratory Depth Respiratory Pattern Blood Pressure Blood Pressure [Right Arm] 157/129 H Blood Pressure Mean Blood Pressure Mean [Right Arm] 138 Blood Pressure Position Blood Pressure Position [Right Arm] Pulse Oximetry 95 Oxygen Delivery Method Room Air Sepsis Recent Fever Within 48 Hours Sepsis Action Taken by Nursing Laboratory Data Result diagrams: 05/19/19 11:30 05/19/19 11:30 Lab Results 05/19/19 05/19/19 05/19/19 Range/Units 11:30 11:30 11:30 WBC 9.54 (4.8-10.8) K/uL RBC 5.18 (4.7-6.1) M/uL Hgb 15.4 (14.0-18.0) g/dL Hct 44.8 (42-52) % MCV 86.5 (80-100) fL MCH 29.7 (25-34) pg MCHC 34.4 (32-36) g/dL RDW Std Deviation 43.0 (36.4-46.3) fL RDW Coeff of [place] 13.6 (11.5-14.5) % Plt Count 169 (130-400) K/uL MPV 10.0 (7.4-10.4) fL Immature Gran % (Auto) 0.2 % Neut % (Auto) 61.9 % Lymph % (Auto) 29.6 % [place] % (Auto) 5.8 % Eos % (Auto) 1.8 % Baso % (Auto) 0.7 % Immature Gran # (Auto) 0.02 (0.00-0.02) K/uL Neut # (Auto) 5.91 (1.4-6.5) K/uL Lymph # (Auto) 2.82 (1.2-3.4) K/uL [place] # (Auto) 0.55 (0.11-0.59) K/uL Eos # (Auto) 0.17 (0-0.5) K/uL Baso # (Auto) 0.07 (0-0.2) K/uL PT 11.6 (9.0-12.0) Seconds INR 1.1 (0.9-1.1) APTT 25.8 (21.0-31.0) Seconds PTT Ratio 0.9 D-Dimer (0-500) ug/L FEU Sodium 141 (136-145) mmol/L Potassium 3.8 (3.5-5.1) mmol/L Chloride 107 (98-107) mmol/L Carbon Dioxide 30 (21-32) mmol/L Anion Gap 4.0 (3-11) BUN 15 (7-18) mg/dl Creatinine 1.06 (0.6-1.4) mg/dl Est Cr Clr Drug Dosing 87.4 ml/min Est GFR ( Amer) 81.4 Est GFR (Non-Af Amer) 70.3 BUN/Creatinine Ratio 14.1 (10-20) Glucose 102 H (70-99) mg/dl Calcium 8.5 (8.5-10.1) mg/dl Total Bilirubin 0.7 (0.2-1) mg/dl AST 19 (15-37) U/L ALT 30 (12-78) U/L Alkaline Phosphatase 78 (45-117) U/L Troponin I < 0.015 (0-0.045) ng/ml Total Protein 6.8 (6.4-8.2) gm/dl Albumin 3.6 (3.4-5.0) gm/dl Globulin 3.2 (2.5-4.0) gm/dl Albumin/Globulin Ratio 1.1 (0.9-2) Lipase 246 (73-393) U/L 05/19/19 Range/Units 11:30 WBC (4.8-10.8) K/uL RBC (4.7-6.1) M/uL Hgb (14.0-18.0) g/dL Hct (42-52) % MCV (80-100) fL MCH (25-34) pg MCHC (32-36) g/dL RDW Std Deviation (36.4-46.3) fL RDW Coeff of Carlos (11.5-14.5) % Plt Count (130-400) K/uL MPV (7.4-10.4) fL Immature Gran % (Auto) % Neut % (Auto) % Lymph % (Auto) % [place] % (Auto) % Eos % (Auto) % Baso % (Auto) % Immature Gran # (Auto) (0.00-0.02) K/uL Neut # (Auto) (1.4-6.5) K/uL Lymph # (Auto) (1.2-3.4) K/uL [place] # (Auto) (0.11-0.59) K/uL Eos # (Auto) (0-0.5) K/uL Baso # (Auto) (0-0.2) K/uL PT (9.0-12.0) Seconds INR (0.9-1.1) APTT (21.0-31.0) Seconds PTT Ratio D-Dimer 430 (0-500) ug/L FEU Sodium (136-145) mmol/L Potassium (3.5-5.1) mmol/L Chloride (98-107) mmol/L Carbon Dioxide (21-32) mmol/L Anion Gap (3-11) BUN (7-18) mg/dl Creatinine (0.6-1.4) mg/dl Est Cr Clr Drug Dosing ml/min Est GFR ( Amer) Est GFR (Non-Af Amer) BUN/Creatinine Ratio (10-20) Glucose (70-99) mg/dl Calcium (8.5-10.1) mg/dl Total Bilirubin (0.2-1) mg/dl AST (15-37) U/L ALT (12-78) U/L Alkaline Phosphatase (45-117) U/L Troponin I (0-0.045) ng/ml Total Protein (6.4-8.2) gm/dl Albumin (3.4-5.0) gm/dl Globulin (2.5-4.0) gm/dl Albumin/Globulin Ratio (0.9-2) Lipase (73-393) U/L Administered Medications Enoxaparin Sodium (Lovenox) 40 mg SQ Q24H ARGELIA Stop: 06/18/19 17:59 Last Admin: 05/19/19 17:42 Dose: Not Given Documented by: [id number] Discontinued Medications Aspirin (Aspirin) 324 mg PO NOW STA Stop: 05/19/19 12:00 Last Admin: 05/19/19 12:43 Dose: 324 mg Documented by: [id number] Nitroglycerin (Nitrostat) 0.4 mg SL NOW STA Stop: 05/19/19 12:00 Last Admin: 05/19/19 12:43 Dose: 0.4 mg Documented by: [id number] Discharge Plan Visit Data *Final* Discharge Date/Time: 05/19/19 16:18 Chief Complaint: Chest Pain Stated Complaint: CHEST PAIN, SOB, SWEATING,CARDIC HX ED Provider: Kendell Whitman Discharge Problem: Chest pain, HTN (hypertension), CAD (coronary artery disease), S/P CABG x 5 Patient Disposition: Admitted As Inpatient Discharge Instructions Interventions: ED Discharge Assessment Last Done: 05/19/19 16:18 Discharge Problem: Chest pain Qualifiers: Chest pain type: unspecified Qualified Code(s): R07.9 - Chest pain, unspecified HTN (hypertension) Qualifiers: Hypertension type: unspecified Qualified Code(s): I10 - Essential (primary) hypertension CAD (coronary artery disease) Qualifiers: Coronary Disease-Associated Artery/Lesion type: unspecified vessel or lesion type [place] vs. transplanted heart: unspecified whether [place] or transplanted heart Associated angina: angina presence unspecified Qualified Code(s): I25.10 - Atherosclerotic heart disease of [place] coronary artery without angina pectoris
[2019-05-19 12:06] LABS: Basophils # (auto) 0.07 K/uL (0-0.2); Basophils % (auto) 0.7 %; Eosinophils # (auto) 0.17 K/uL (0-0.5); Eosinophils % (auto) 1.8 %; Hematocrit (blood only) 44.8 % (42-52); Hemoglobin 15.4 g/dL (14.0-18.0); Immature Granulocytes # (auto) 0.02 K/uL (0.00-0.02); Immature Granulocytes % (auto) 0.2 %; Lymphocytes # (auto) 2.82 K/uL (1.2-3.4); Lymphocytes % (auto) 29.6 %; Mean Corpuscular Hemoglobin 29.7 pg (25-34); Mean Corpuscular Hgb Conc 34.4 g/dL (32-36); Mean Corpuscular Volume 86.5 fL (80-100); Monocytes # (auto) 0.55 K/uL (0.11-0.59); Monocytes % (auto) 5.8 %; Neutrophils # (auto) 5.91 K/uL (1.4-6.5); Neutrophils % (auto) 61.9 %; Platelet Count 169 K/uL (130-400); RDW Coefficient of Variation 13.6 % (11.5-14.5); Red Blood Count 5.18 M/uL (4.7-6.1); White Blood Count 9.54 K/uL (4.8-10.8)
[2019-05-19 12:15] LABS: Alanine Aminotransferase 30 U/L (12-78); Albumin Level 3.6 gm/dl (3.4-5.0); Aspartate Aminotransferase 19 U/L (15-37); BUN Creatinine Ratio 14.1 (10-20); Blood Urea Nitrogen 15 mg/dl (7-18); Calcium 8.5 mg/dl (8.5-10.1); Carbon Dioxide 30 mmol/L (21-32); Chloride 107 mmol/L (98-107); Creatinine Clr Calc Pharmacy 87.4 ml/min; Est GFR (African American) 81.4; Est GFR (Non-African American) 70.3; Glucose 102 mg/dl (70-99); Lipase 246 U/L (73-393); Potassium 3.8 mmol/L (3.5-5.1); Sodium 141 mmol/L (136-145)
--- NOTE | 2019-05-19 12:19 | XRay Report ---
XR chest 1V portable CLINICAL HISTORY: 73 years-old Male presenting with chest pain and chronic cough. TECHNIQUE: Portable upright AP view of the chest was obtained. COMPARISON: 01/16/2017. FINDINGS: Median sternotomy wires and mediastinal surgical clips. Atherosclerosis of the aortic arch. Cardiac s ilhouette normal in size. Mild pulmonary vascular prominence. Mild interstitial prominence. Mildly lo w lung volumes. No focal opacity. No large effusion or pneumothorax. Osseous structures normal. Upper abdomen normal. IMPRESSION: 1. Suspected mild volume overload and congestive change. No delmi pulmonary edema. ACT 112: Negative or not required by law. Electronically signed by: Ozzy Esquivel M.D. 05/19/2019 12:18 PM
[2019-05-19 12:20] LABS: Albumin Globulin Ratio 1.1 (0.9-2); Alkaline Phosphatase 78 U/L (45-117); Bilirubin,Total 0.7 mg/dl (0.2-1); Globulin 3.2 gm/dl (2.5-4.0); Total Protein 6.8 gm/dl (6.4-8.2); Troponin I < 0.015 ng/ml (0-0.045)
[2019-05-19 12:25] LABS: INR 1.1 (0.9-1.1); Partial Thromboplastin Ratio 0.9; Partial Thromboplastin Time 25.8 Seconds (21.0-31.0); Prothrombin Time 11.6 Seconds (9.0-12.0)
[2019-05-19 13:16] LABS: D Dimer 430 ug/L FEU (0-500)
--- NOTE | 2019-05-19 16:23 | History & Physical Report ---
Date of Service May 19, 2019 Assessment & Plan (1) Chest pain: - Presented with chest pain concerning for cardiac source due to h/o CAD, presenting symptoms. - EKG showed sinus bradycardia; initial trop was negative -- will trend q6hr overnight. - Cardiology consulted, will be NPO after midnight. Consider stress echo in the AM. - Continue home beta marbin (with close monitoring of HR), ASA, statin as prescribed. - Nitro 0.4 mg SL prn chest pain. (2) CAD (coronary artery disease): - H/o CABG x 5 in 2005. - Most recent cardiac cath in 2013. - Most recent stress test in 2017 during prior admission. - Continue Metoprolol, statin, ASA as prescribed. (3) S/P CABG x 5: - In 2005, see above. (4) Pulmonary congestion: - CXR with mild volume overload and congestive changes. - Possible acute mild CHF -- most recent echo in 2016 showed preserved EF but may have component of diastolic CHF. - Monitor net I/Os and daily weights. - Hold diuretics at this time; currently stable on room air. - BNP pending; may require stress echo in the morning, can also evaluate EF during study. (5) HTN (hypertension): - Continue beta marbin with close monitoring of HR (has been slightly bradycardic) - Continue home Losartan as prescribed. (6) HLD (hyperlipidemia): - Continue statin. - Lipid panel in the AM. (7) Hypothyroidism: - Continue Synthroid 75 mcg daily. - TSH was 1.5 in Feb 2019. (8) Hyperglycemia: - BG 100's -- will order A1C in the morning. - Hold SSI & accuchecks. (9) GERD (gastroesophageal reflux disease): - PPI daily. - Consider addition of GI cocktail -- although symptoms are not consistent with GERD. (10) Stage 2 chronic kidney disease: - Monitor renal function closely. - Average GFR 60-80. (11) Obesity: - BMI 37.4. - Encourage exercise -- has been walking on treadmill ~20 min per day over the last week. - Heart healthy diet. (12) DVT prophylaxis: - SCDs; Lovenox daily. Dispo: Med/surg with tele for cardiac work up. History of Present Illness Chief Complaint: Chest pain Primary Care Provider: Trev Camarena MD Mr. Carlisle is a 73 year old male with past medical history of CABG x 5 in 2006, HLD, HTN, Hypothyroidism, Obesity, GERD who presented with chest pain. Pt. reports he has had chronic intermittent left sided chest pain at home over the last few years. Most recent stress test was in 2017, was negative for ischemia. Pt. reports he developed increased chest pain and shortness of breath over the last few days. Chest pain initially occurred with exertion only but has increased to also be present at rest. He walked on the treadmill for ~10 minutes this morning but had to discontinue exercising due to increased chest pain, SOB. Chest pain is located on the left side, radiates to his left underarm. Denies radiation to jaw. Shortness of breath is present with exertion, denies SOB at rest. Was diaphoretic this morning, denies nausea/vomiting, abd pain, constipation or diarrhea, dysuria or hematuria. ER course: Trop was negative; EKG showed sinus bradycardia. He received Aspirin 324 mg and Nitro 0.4 mg sublingually. CXR showed mild pulm edema. Will be admitted for cardiac work up. Allergies Allergy/AdvReac Type Severity Reaction Status Date / Time No Known Allergies Allergy Unknown Verified 05/19/19 12:28 Home Medications Home Medications Medication Instructions Recorded Confirmed Type antiarthritic combination no.2 900 900 mg PO COUNT INCLUDES THE [facility] 03/10/19 05/19/19 History mg tablet aspirin 81 mg tablet,delayed 81 mg PO 03/10/19 05/19/19 History release levothyroxine 75 mcg tablet 75 mcg PO DAILYBB 03/10/19 05/19/19 History losartan 25 mg tablet 25 mg PO COUNT INCLUDES THE [facility] 03/10/19 05/19/19 History metoprolol succinate 50 mg 50 mg PO COUNT INCLUDES THE [facility] 03/10/19 05/19/19 History tablet,extended release 24 hr omega-3 fatty acids 1,000 mg 1,000 mg PO COUNT INCLUDES THE [facility] 03/10/19 05/19/19 History capsule omeprazole 20 mg capsule,delayed 20 mg PO HS 03/10/19 05/19/19 History release simvastatin 40 mg tablet 20 mg PO 03/10/19 05/19/19 History tamsulosin 0.4 mg capsule 0.4 mg PO COUNT INCLUDES THE [facility] 03/10/19 05/19/19 History Past Med/Surg History Medical History (Updated 05/19/19 @ 19:53 by Kendell Whitman DO) CAD (coronary artery disease) (Acute) GERD (gastroesophageal reflux disease) HLD (hyperlipidemia) HTN (hypertension) (Chronic) Hypothyroidism Obesity Surgical History (Updated 05/19/19 @ 19:53 by Kendell Whitman DO) S/P CABG x 5 (Acute) Family History Father Coronary heart disease S/p CABG in his 60's. Mother Coronary heart disease at age 74 due to cardiac arrest. Social History Preferred Language: Jordanian Communication Ability: Effective Cardiac Nurse Required: No Beliefs That Will Affect Care: None Current Living Situation: Spouse Other Information That Helps Us Care for You: No Feels Safe at Home: Yes Safety Concerns: Feels Safe At This Time Smoking Status: Never smoker Do You Dip or Chew Tobacco: No ; Second Hand Exposure: No ; Tobacco Cessation Education Requested by Patient: No Hx Alcohol Use: No Hx Substance Use: No Review of Systems Review of Systems: All systems reviewed & are unremarkable except as noted in HPI & below Constitutional: + fatigue and + weakness; no fever, no chills and no anorexia Respiratory: + dyspnea on exertion; no cough, no dyspnea and no wheezing Cardiovascular: + chest pain, + chest pain with activity and + radiating jaw, neck or arm pain; no chest pain at rest, no palpitations, no lightheadedness, no syncope and no edema Gastrointestinal: no abdominal pain, no nausea, no vomiting, no constipation and no diarrhea/loose stools Genitourinary: no dysuria, no difficulty urinating, no urinary frequency and no hematuria Musculoskeletal: no back pain and no joint pain Integumentary: no non-healing lesions Physical Exam Physical Exam: General: Resting comfortably HEENT: NC/AT; PERRLA with EOMI; [place] conjunctiva, MMM. No erythema of posterior pharynx Neck: Supple and nontender Cardiac: RRR w/o murmurs, gallops or rubs Lungs: CTA bilaterally; No rhonchi, wheezing, or rales Abdomen: Bowel normoactive X 4; Nontender to palpation Rectal: Deferred : Deferred Back: NO spinous tenderness Extremities: Warm. No edema present Neuro: No focal weakness Skin: No rash Constitutional: WD/WN, vitals as above Eyes: normal visual diaz by confrontation and + anicteric sclerae Neck: normal visual inspection and trachea midline Respiratory: normal respiratory effort, lungs clear to auscultation Cardiovascular: Rate/Rhythm: regular rate and regular rhythm Gastrointestinal (Abdomen): Inspection/Auscultation: abdomen not distended Percussion/Palpation: abdomen soft; abdomen nontender Musculoskeletal: Head/Neck/Chest: normocephalic and head atraumatic Neg for peripheral LE edema, + pedal pulses Skin: no rashes, warm and dry Neurologic: awake; not confused Speech / Cognition: normal speech Psychiatric: A+Ox3, euthymic affect Lymphatic: Exam as done by Ofe Ross DO Results & Data Vital Signs (Past 12 Hours) Vital Signs Temp Pulse Pulse Resp BP BP Pulse Ox 05/19/19 15:52 50 L 25 H 150/72 H 97 05/19/19 14:30 75 16 157/129 H 95 05/19/19 13:35 56 L 20 152/64 H 97 05/19/19 11:50 62 19 131/68 95 05/19/19 11:19 37.1 C 68 16 176/91 H 94 Laboratory Results 05/19/19 05/19/19 05/19/19 Range/Units 11:30 11:30 11:30 WBC (4.8-10.8) K/uL RBC (4.7-6.1) M/uL Hgb (14.0-18.0) g/dL Hct (42-52) % MCV (80-100) fL MCH (25-34) pg MCHC (32-36) g/dL RDW Std Deviation (36.4-46.3) fL RDW Coeff of Carlos (11.5-14.5) % Plt Count (130-400) K/uL MPV (7.4-10.4) fL Immature Gran % (Auto) % Neut % (Auto) % Lymph % (Auto) % [place] % (Auto) % Eos % (Auto) % Baso % (Auto) % Immature Gran # (Auto) (0.00-0.02) K/uL Neut # (Auto) (1.4-6.5) K/uL Lymph # (Auto) (1.2-3.4) K/uL [place] # (Auto) (0.11-0.59) K/uL Eos # (Auto) (0-0.5) K/uL Baso # (Auto) (0-0.2) K/uL PT 11.6 (9.0-12.0) Seconds INR 1.1 (0.9-1.1) APTT 25.8 (21.0-31.0) Seconds PTT Ratio 0.9 D-Dimer 430 (0-500) ug/L FEU Sodium 141 (136-145) mmol/L Potassium 3.8 (3.5-5.1) mmol/L Chloride 107 (98-107) mmol/L Carbon Dioxide 30 (21-32) mmol/L Anion Gap 4.0 (3-11) BUN 15 (7-18) mg/dl Creatinine 1.06 (0.6-1.4) mg/dl Est Cr Clr Drug Dosing 87.4 ml/min Est GFR ( Amer) 81.4 Est GFR (Non-Af Amer) 70.3 BUN/Creatinine Ratio 14.1 (10-20) Glucose 102 H (70-99) mg/dl Calcium 8.5 (8.5-10.1) mg/dl Total Bilirubin 0.7 (0.2-1) mg/dl AST 19 (15-37) U/L ALT 30 (12-78) U/L Alkaline Phosphatase 78 (45-117) U/L Troponin I < 0.015 (0-0.045) ng/ml Total Protein 6.8 (6.4-8.2) gm/dl Albumin 3.6 (3.4-5.0) gm/dl Globulin 3.2 (2.5-4.0) gm/dl Albumin/Globulin Ratio 1.1 (0.9-2) Lipase 246 (73-393) U/L 05/19/19 Range/Units 11:30 WBC 9.54 (4.8-10.8) K/uL RBC 5.18 (4.7-6.1) M/uL Hgb 15.4 (14.0-18.0) g/dL Hct 44.8 (42-52) % MCV 86.5 (80-100) fL MCH 29.7 (25-34) pg MCHC 34.4 (32-36) g/dL RDW Std Deviation 43.0 (36.4-46.3) fL RDW Coeff of Carlos 13.6 (11.5-14.5) % Plt Count 169 (130-400) K/uL MPV 10.0 (7.4-10.4) fL Immature Gran % (Auto) 0.2 % Neut % (Auto) 61.9 % Lymph % (Auto) 29.6 % [place] % (Auto) 5.8 % Eos % (Auto) 1.8 % Baso % (Auto) 0.7 % Immature Gran # (Auto) 0.02 (0.00-0.02) K/uL Neut # (Auto) 5.91 (1.4-6.5) K/uL Lymph # (Auto) 2.82 (1.2-3.4) K/uL [place] # (Auto) 0.55 (0.11-0.59) K/uL Eos # (Auto) 0.17 (0-0.5) K/uL Baso # (Auto) 0.07 (0-0.2) K/uL PT (9.0-12.0) Seconds INR (0.9-1.1) APTT (21.0-31.0) Seconds PTT Ratio D-Dimer (0-500) ug/L FEU Sodium (136-145) mmol/L Potassium (3.5-5.1) mmol/L Chloride (98-107) mmol/L Carbon Dioxide (21-32) mmol/L Anion Gap (3-11) BUN (7-18) mg/dl Creatinine (0.6-1.4) mg/dl Est Cr Clr Drug Dosing ml/min Est GFR ( Amer) Est GFR (Non-Af Amer) BUN/Creatinine Ratio (10-20) Glucose (70-99) mg/dl Calcium (8.5-10.1) mg/dl Total Bilirubin (0.2-1) mg/dl AST (15-37) U/L ALT (12-78) U/L Alkaline Phosphatase (45-117) U/L Troponin I (0-0.045) ng/ml Total Protein (6.4-8.2) gm/dl Albumin (3.4-5.0) gm/dl Globulin (2.5-4.0) gm/dl Albumin/Globulin Ratio (0.9-2) Lipase (73-393) U/L Code Status & VTE Plan VTE Prophylaxis Plan VTE Prophylaxis will be ordered: Yes Supervising Physician Co-Signing Physician Notes Pt seen and examined by me. Denies chest pain or SOB while sitting propped up in bed. Tolerating PO without issue. Agree with HPI/ROS as noted by PA See above for my exam in PE section Agree with plan as outlined above Serial trops Likely stress ECHO in AM would like to be present during discussions as pt is [place] with some voice tones. PG Care Time/CCT Total # of Minutes Spent Total Time Spent with Patient: Total time spent is greater than 50% in coordination of care (as documented) at patient's floor/unit and/or counseling patient: Coding Level of Care Code 19296 OBS Care - Level 3 Diagnoses Chest pain R07.9 CAD (coronary artery disease) I25.10 S/P CABG x 5 Z95.1 Pulmonary congestion R09.89 HTN (hypertension) I10 HLD (hyperlipidemia) E78.5 Hypothyroidism E03.9 Hyperglycemia R73.9 GERD (gastroesophageal reflux disease) K21.9 Stage 2 chronic kidney disease N18.2 Obesity E66.9 DVT prophylaxis Z29.9
[2019-05-19] MEDS ORDERED: ONDANSETRON INJ 2 MG/ML 2 ML VIAL IV PRN (16:50)
[2019-05-19] MEDS ORDERED: ACETAMINOPHEN 325 MG TAB PO PRN (16:50)
[2019-05-19] MEDS ORDERED: NITROGLYCERIN SL 0.4 MG/TAB TAB SL PRN (16:50)
--- NOTE | 2019-05-19 17:02 | Electrocardiogram Report ---
Test Reason : Blood Pressure : / mmHG Vent. Rate : 059 BPM Atrial Rate : 059 BPM P-R Int : 146 ms QRS Dur : 078 ms QT Int : 380 ms P-R-T Axes : 045 -09 047 degrees QTc Int : 376 ms Sinus bradycardia Low voltage QRS Borderline ECG When compared with ECG of 18-JAN-2017 07:47, Criteria for Inferior infarct are no longer Present Confirmed by Teja Townsend ([id number]) on 05/19/2019 5:02:32 PM Referred By: Confirmed By:Teja Townsend
[2019-05-19] MEDS: ENOXAPARIN INJ 40 MG/0.4 ML SYR SQ SCH (17:42)
[2019-05-19 18:06] LABS: NT Pro B Type Natriuretic Pept 179 pg/ml (0-900); Troponin I < 0.015 ng/ml (0-0.045)
[2019-05-19] MEDS: SIMVASTATIN 20 MG TAB PO SCH (20:15)
[2019-05-19] MEDS: ASPIRIN 81 MG ECTAB PO SCH (20:15)
[2019-05-19] MEDS: PANTOprazole 40 MG TAB PO SCH (20:15)
[2019-05-20] MEDS: LEVOTHYROXINE SODIUM 75 MCG TABLET PO SCH (05:48)
[2019-05-20 05:58] LABS: Hematocrit (blood only) 42.1 % (42-52); Hemoglobin 14.2 g/dL (14.0-18.0); Mean Corpuscular Hemoglobin 29.1 pg (25-34); Mean Corpuscular Hgb Conc 33.7 g/dL (32-36); Mean Corpuscular Volume 86.3 fL (80-100); Mean Platelet Volume 9.7 fL (7.4-10.4); Platelet Count 135 K/uL (130-400); RDW Coefficient of Variation 13.6 % (11.5-14.5); Red Blood Count 4.88 M/uL (4.7-6.1); White Blood Count 8.29 K/uL (4.8-10.8)
[2019-05-20 06:31] LABS: BUN Creatinine Ratio 19.4 (10-20); Calcium 8.2 mg/dl (8.5-10.1); Creatinine Clr Calc Pharmacy 86.7 ml/min; Est GFR (African American) 81.4; Est GFR (Non-African American) 70.3; Magnesium 1.9 mg/dl (1.8-2.4); Potassium 3.8 mmol/L (3.5-5.1)
[2019-05-20 07:05] LABS: Estimated Average Glucose 105 mg/dl; Hemoglobin A1C 5.3 % (4.5-5.6)
--- NOTE | 2019-05-20 14:58 | Cardiology Consultation ---
Date of Consultation May 20, 2019 Assessment & Plan (1) Chest pain: His chest discomfort is suspicious for angina. He describes 1 to 2 weeks of crescendo chest discomfort which sounds anginal, it is reminiscent of what he had prior to his bypass surgery. We could consider stress testing but if this is unstable angina that is potentially risky and with his known coronary disease the results may be misleading although he did have a negative stress test 3 years ago. I would be inclined to perform catheterization. He is agreeable and I will set that up for today. (2) CAD (coronary artery disease): He has known coronary disease with bypass surgery in the past, his stress test in 2017 was negative for ischemia but his current symptoms suggest progression of disease. He needs risk factor modification which is primarily diet and exercise and statin therapy in his case. (3) HLD (hyperlipidemia): His LDL was very good on admission today, his chart says he is on simvastatin 20 mg daily but he tells me that that was recently changed to something else and he does not know the new medication. It may be that he is on a higher dose of perhaps atorvastatin although he did not recognize it. If not his cholesterol management should be optimized. (4) Obesity: He is quite overweight, I discussed losing weight with him and he has not been very successful with that. He feels that he has a relatively healthy diet. History of Present Illness Reason for Consultation: This is a 73-year-old male who has a history of hypertension, hyperlipidemia, diabetes mellitus as well as known coronary artery disease including bypass surgery and more recently catheterization on January 26, 2014. That catheterization was done here and showed diffuse medical grade disease including a 50% ostial left main as well as an occluded proximal LAD and an occluded large diagonal and patent saphenous vein grafts although somewhat disease. He did have a subsequent myocardial perfusion stress test on January 19, 2017, this was done as a Lexiscan study and it did not show any ischemia. We have not seen him since that time but he now presents with exertional shortness of breath. What he describes to me that he is having exertional chest discomfort over the last week or 2, it is also associated with significant shortness of breath and his has noticed it as well. This occurs with relatively minimal exertion, such as walking across the floor of his house, and is relieved after several minutes of rest. He has not had this since his bypass surgery years ago, but he feels the symptoms are similar now to what he had at that time. He has had no rest angina or chest discomfort and does not have rest shortness of breath, he does not have orthopnea or PND or peripheral edema. Attending Physician: Ofe Ross DO Allergies Allergy/AdvReac Type Severity Reaction Status Date / Time No Known Allergies Allergy Unknown Verified 05/19/19 12:28 Home Medications Home Medications Medication Instructions Recorded Confirmed Type antiarthritic combination no.2 900 900 mg PO [facility] 03/10/19 05/19/19 History mg tablet aspirin 81 mg tablet,delayed 81 mg PO HS 03/10/19 05/19/19 History release levothyroxine 75 mcg tablet 75 mcg PO DAILYBB 03/10/19 05/19/19 History losartan 25 mg tablet 25 mg PO [facility] 03/10/19 05/19/19 History metoprolol succinate 50 mg 50 mg PO [facility] 03/10/19 05/19/19 History tablet,extended release 24 hr omega-3 fatty acids 1,000 mg 1,000 mg PO [facility] 03/10/19 05/19/19 History capsule omeprazole 20 mg capsule,delayed 20 mg PO HS 03/10/19 05/19/19 History release simvastatin 40 mg tablet 20 mg PO 03/10/19 05/19/19 History tamsulosin 0.4 mg capsule 0.4 mg PO [facility] 03/10/19 05/19/19 History Patient History Medical History (Updated 05/19/19 @ 19:53 by Kendell Whitman DO) CAD (coronary artery disease) (Acute) GERD (gastroesophageal reflux disease) HLD (hyperlipidemia) HTN (hypertension) (Chronic) Hypothyroidism Obesity Surgical History (Updated 05/19/19 @ 19:53 by Kendell Whitman DO) S/P CABG x 5 (Acute) Family History Father Coronary heart disease S/p CABG in his 60's. Mother Coronary heart disease at age 74 due to cardiac arrest. 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 HEENT: Unremarkable Neck: No jugular venous distention, carotid pulses are normal and equal bilaterally without bruits. Pulmonary: Clear to auscultation bilaterally. Cardiac: Regular rhythm with no murmur, gallop or rub. Abdomen: Soft, nontender with normal bowel sounds. Extremities: No edema. Distal pulses intact. Neurologic: No focal findings. Gait is steady. Skin: No rash, ecchymoses or petechiae. Results & Data ([facility]) Vital Signs (Past 12 Hours) Vital Signs Temp Pulse Pulse Resp BP Pulse Ox 05/20/19 11:10 36.5 C 55 L 18 157/83 H 96 05/20/19 07:35 36.7 C 54 L 18 150/82 H 94 05/20/19 07:30 52 L 05/20/19 03:31 36.6 C 65 18 124/69 94 Laboratory Results Cardiac Enzymes 05/19/19 05/19/19 05/20/19 Range/Units 17:39 23:20 05:43 Troponin I < 0.015 < 0.015 < 0.015 (0-0.045) ng/ml Lipids 05/20/19 Range/Units 05:43 Triglycerides 137 (0-150) mg/dl Cholesterol 91 (0-200) mg/dl HDL Cholesterol 23 mg/dl Cholesterol/HDL Ratio 4 CBC 05/20/19 Range/Units 05:43 WBC 8.29 (4.8-10.8) K/uL RBC 4.88 (4.7-6.1) M/uL Hgb 14.2 (14.0-18.0) g/dL Hct 42.1 (42-52) % Plt Count 135 (130-400) K/uL Comprehensive Metabolic Panel 05/20/19 Range/Units 05:43 Sodium 142 (136-145) mmol/L Potassium 3.8 (3.5-5.1) mmol/L Chloride 109 H (98-107) mmol/L Carbon Dioxide 29 (21-32) mmol/L BUN 21 H (7-18) mg/dl Creatinine 1.06 (0.6-1.4) mg/dl Glucose 114 H (70-99) mg/dl Calcium 8.2 L (8.5-10.1) mg/dl Intake and Output 05/19/19 05/20/19 05/20/19 22:59 06:59 14:59 Other: # Urine Diapers 1 Weight 125.2 kg 123.4 kg Diagnostic Findings He has had several electrocardiograms on this admission, both show sinus bradycardia with an old inferior myocardial infarction but no ST-T abnormalities. Telemetry: Predominantly sinus bradycardia, one brief run of PAT PG Care Time/CCT Total # of Minutes Spent Total Time Spent with Patient: Total time spent is greater than 50% in coordination of care (as documented) at patient's floor/unit and/or counseling patient: Coding Level of Care Code 15635 Initial Inpt Care Lvl 3 Diagnoses Chest pain R07.9 Chest pain type: unspecified CAD (coronary artery disease) I25.10 Associated angina: angina presence unspecified Coronary Disease-Associated Artery/Lesion type: unspecified vessel or lesion type [place] vs. transplanted heart: unspecified whether [place] or transplanted heart HLD (hyperlipidemia) E78.5 Obesity E66.9 (1) Chest pain Chest pain type: unspecified Qualified Code(s): R07.9 - Chest pain, unspecified (2) CAD (coronary artery disease) Associated angina: angina presence unspecified Coronary Disease-Associated Artery/Lesion type: unspecified vessel or lesion type [place] vs. transplanted heart: unspecified whether [place] or transplanted heart Qualified Code(s): I25.10 - Atherosclerotic heart disease of [place] coronary artery without angina pectoris
--- NOTE | 2019-05-20 15:07 | Hospitalist Progress Note ---
Date of Service May 20, 2019 Assessment & Plan (1) Chest pain: - Presented with chest pain with exertion concerning for cardiac source due to h/o CAD. - EKG showed sinus bradycardia; serial troponins were negative. - Cardiology consulted, plan for cardiac cath this afternoon. - Continue home beta marbin (held this morning due to bradycardia), ASA, statin as prescribed. - Nitro 0.4 mg SL prn chest pain. (2) CAD (coronary artery disease): - H/o CABG x 5 in 2005. - Most recent cardiac cath in 2013. - Most recent stress test in 2017 during prior admission. Plan for cardiac cath this afternoon. - Continue Metoprolol, statin, ASA as prescribed. (3) S/P CABG x 5: - In 2005, see above. (4) Pulmonary congestion: - CXR with mild volume overload and congestive changes. - No evidence of acute CHF, patient currently appears well compensated -- most recent echo in 2016 showed preserved EF but may have component of chronic diastolic CHF. - Monitor net I/Os and daily weights. - Hold diuretics at this time. - BNP 179; consider TTE for evaluation of EF. (5) HTN (hypertension): - Continue beta marbin with close monitoring of HR - held this morning due to bradycardia. - Continue home Losartan as prescribed. (6) HLD (hyperlipidemia): - Continue statin. - Lipid panel was WNL. (7) Hypothyroidism: - Continue Synthroid 75 mcg daily. - TSH was 1.5 in Feb 2019. (8) Hyperglycemia: - BG 100's -- A1C is 5.3. (9) GERD (gastroesophageal reflux disease): - PPI daily. - Consider addition of GI cocktail -- symptoms are not consistent with GERD. (10) Stage 2 chronic kidney disease: - Monitor renal function closely. - Average GFR 60-80. (11) Obesity: - BMI 37.4. - Encourage exercise -- has been walking on treadmill ~20 min per day over the last week. - Heart healthy diet. (12) DVT prophylaxis: - SCDs; Lovenox daily. Dispo: Med/surg; plan for cardiac cath this afternoon. Admission and Anticipated Discharge Date Admission Date: May 19, 2019 Supervising Physician Co-Signing Physician Notes Attending Attestation - Chart reviewed in detail, care plan d/w CHAN Small. I agree w/ the ware components of her documentation. Tim Claudio MD Subjective Pt. has ongoing chest pain on left side with exertion, denies chest pain at rest. Denies shortness of breath, N/V, diaphoresis. Plan for cardiac cath today per Dr. Townsend. Review of Systems Review of Systems: All systems reviewed & are unremarkable except as noted in HPI & below Constitutional: no fever, no chills, no fatigue and no weakness Respiratory: no cough, no dyspnea and no dyspnea on exertion Cardiovascular: + chest pain, + chest pain with activity and + radiating jaw, neck or arm pain; no palpitations and no edema Gastrointestinal: no abdominal pain, no nausea, no vomiting and no constipation Genitourinary: no difficulty urinating Musculoskeletal: no back pain and no joint pain Integumentary: no non-healing lesions Physical Exam Physical Exam: General: Resting comfortably HEENT: NC/AT; PERRLA with EOMI; [place] conjunctiva, MMM. No erythema of posterior pharynx Neck: Supple and nontender Cardiac: RRR w/o murmurs, gallops or rubs Lungs: CTA bilaterally; No rhonchi, wheezing, or rales Abdomen: Bowel normoactive X 4; Nontender to palpation Extremities: Warm. No edema present Neuro: No focal weakness Skin: No rash Results & Data ([facility]) Vital Signs (Past 12 Hours) Vital Signs Temp Pulse Pulse Resp BP Pulse Ox 05/20/19 11:10 36.5 C 55 L 18 157/83 H 96 05/20/19 07:35 36.7 C 54 L 18 150/82 H 94 05/20/19 07:30 52 L 05/20/19 03:31 36.6 C 65 18 124/69 94 Laboratory Results 05/20/19 05/20/19 05/20/19 Range/Units 05:43 05:43 05:43 WBC (4.8-10.8) K/uL RBC (4.7-6.1) M/uL Hgb (14.0-18.0) g/dL Hct (42-52) % MCV (80-100) fL MCH (25-34) pg MCHC (32-36) g/dL RDW Std Deviation (36.4-46.3) fL RDW Coeff of Carlos (11.5-14.5) % Plt Count (130-400) K/uL MPV (7.4-10.4) fL Sodium 142 (136-145) mmol/L Potassium 3.8 (3.5-5.1) mmol/L Chloride 109 H (98-107) mmol/L Carbon Dioxide 29 (21-32) mmol/L Anion Gap 4.0 (3-11) BUN 21 H (7-18) mg/dl Creatinine 1.06 (0.6-1.4) mg/dl Est Cr Clr Drug Dosing 86.7 ml/min Est GFR ( Amer) 81.4 Est GFR (Non-Af Amer) 70.3 BUN/Creatinine Ratio 19.4 (10-20) Glucose 114 H (70-99) mg/dl Estimat Average Glucose 105 mg/dl Hemoglobin A1c 5.3 (4.5-5.6) % Calcium 8.2 L (8.5-10.1) mg/dl Magnesium 1.9 (1.8-2.4) mg/dl Troponin I < 0.015 (0-0.045) ng/ml NT-Pro-B Natriuret Pep (0-900) pg/ml Triglycerides 137 (0-150) mg/dl Cholesterol 91 (0-200) mg/dl LDL Cholesterol, Calc 41 mg/dl VLDL Cholesterol, Calc 27 mg/dl HDL Cholesterol 23 mg/dl Cholesterol/HDL Ratio 4 05/20/19 05/19/19 05/19/19 Range/Units 05:43 23:20 17:39 WBC 8.29 (4.8-10.8) K/uL RBC 4.88 (4.7-6.1) M/uL Hgb 14.2 (14.0-18.0) g/dL Hct 42.1 (42-52) % MCV 86.3 (80-100) fL MCH 29.1 (25-34) pg MCHC 33.7 (32-36) g/dL RDW Std Deviation 43.0 (36.4-46.3) fL RDW Coeff of Carlos 13.6 (11.5-14.5) % Plt Count 135 (130-400) K/uL MPV 9.7 (7.4-10.4) fL Sodium (136-145) mmol/L Potassium (3.5-5.1) mmol/L Chloride (98-107) mmol/L Carbon Dioxide (21-32) mmol/L Anion Gap (3-11) BUN (7-18) mg/dl Creatinine (0.6-1.4) mg/dl Est Cr Clr Drug Dosing ml/min Est GFR ( Amer) Est GFR (Non-Af Amer) BUN/Creatinine Ratio (10-20) Glucose (70-99) mg/dl Estimat Average Glucose mg/dl Hemoglobin A1c (4.5-5.6) % Calcium (8.5-10.1) mg/dl Magnesium (1.8-2.4) mg/dl Troponin I < 0.015 < 0.015 (0-0.045) ng/ml NT-Pro-B Natriuret Pep 179 (0-900) pg/ml Triglycerides (0-150) mg/dl Cholesterol (0-200) mg/dl LDL Cholesterol, Calc mg/dl VLDL Cholesterol, Calc mg/dl HDL Cholesterol mg/dl Cholesterol/HDL Ratio PG Care Time/CCT Total # of Minutes Spent Total Time Spent with Patient: Total time spent is greater than 50% in coordination of care (as documented) at patient's floor/unit and/or counseling patient: Coding Level of Care Code 36514 Subseq Obs Care Lvl 3 Diagnoses Chest pain R07.9 Chest pain type: unspecified CAD (coronary artery disease) I25.10 Associated angina: angina presence unspecified Coronary Disease-Associated Artery/Lesion type: unspecified vessel or lesion type [place] vs. transplanted heart: unspecified whether [place] or transplanted heart S/P CABG x 5 Z95.1 Pulmonary congestion R09.89 HTN (hypertension) I10 Hypertension type: unspecified HLD (hyperlipidemia) E78.5 Hypothyroidism E03.9 Hyperglycemia R73.9 GERD (gastroesophageal reflux disease) K21.9 Stage 2 chronic kidney disease N18.2 Obesity E66.9 DVT prophylaxis Z29.9 (1) CAD (coronary artery disease) Associated angina: angina presence unspecified Coronary Disease-Associated Artery/Lesion type: unspecified vessel or lesion type [place] vs. transplanted heart: unspecified whether [place] or transplanted heart Qualified Code(s): I25.10 - Atherosclerotic heart disease of [place] coronary artery without angina pectoris (2) Chest pain Chest pain type: unspecified Qualified Code(s): R07.9 - Chest pain, unspecified (3) HTN (hypertension) Hypertension type: unspecified Qualified Code(s): I10 - Essential (primary) hypertension
[2019-05-20] MEDS ORDERED: SODIUM CHLORIDE 0.9% 1000ML 1,000 ML IV SCH (15:15)
[2019-05-20] MEDS ORDERED: HEPARIN (PORCINE) 1000 UNIT/ML 10 ML (CATH LAB USE ONLY) ONE (15:39)
[2019-05-20] MEDS ORDERED: NiCARDipine HCL INJ 2.5 MG/ML 10 ML AMP ONE (15:39)
[2019-05-20] MEDS ORDERED: fentaNYL citrate 100 MCG/2 ML VIAL ONE (15:40)
[2019-05-20] MEDS ORDERED: MIDAZOLAM HCL 1 MG/ML 2ML VIAL ONE (15:40)
[2019-05-20] MEDS ORDERED: NITROGLYCERIN/D5W 100MCG/ML 20ML SYR ONE (15:41)
--- NOTE | 2019-05-20 15:57 | Pre Anesthesia Assessment ---
Date of Service May 20, 2019 Pre Sedation Assessment Vital Signs Temp Pulse Pulse Resp BP Pulse Ox 05/20/19 15:28 36.6 C 52 L 18 124/72 96 05/20/19 11:10 36.5 C 55 L 18 157/83 H 96 05/20/19 07:35 36.7 C 54 L 18 150/82 H 94 05/20/19 07:30 52 L 05/20/19 03:31 36.6 C 65 18 124/69 94 05/20/19 00:38 54 L 05/19/19 23:38 37.1 C 54 L 16 132/75 95 05/19/19 19:49 36.6 C 96 H 18 99/67 L 100 05/19/19 19:45 36.9 C 53 L 20 151/76 H 97 05/19/19 16:50 36.8 C 53 L 18 128/71 95 05/19/19 16:44 57 L Pre-Sedation Airway Assessment Smoking Status: Never smoker Hx Sleep Apnea: No Short, Thick Neck: No Oral Cavity: + WNL Mallampati Class: IV ASA: ASA2 NPO Status Date of Last Intake of Fluids: 05/19/19 Time of Last Intake of Fluids: 08:00 Last Oral Intake of Fluids Comment: sip with meds Date of Last Intake of Solid Food: 05/19/19 Time of Last Intake of Solid Foods: 18:00 Notes The planned sedation has been discussed with the patient. Informed Consent was obtained. I have identified the patient, determined the appropriateness of sedation and have assessed the patient immediately prior to the procedure. All medicine(s) and interventions are by my order.
--- NOTE | 2019-05-20 16:39 | Electrocardiogram Report ---
Test Reason : Blood Pressure : / mmHG Vent. Rate : 054 BPM Atrial Rate : 054 BPM P-R Int : 138 ms QRS Dur : 080 ms QT Int : 418 ms P-R-T Axes : 027 -19 028 degrees QTc Int : 396 ms Sinus bradycardia Inferior infarct , age undetermined Abnormal ECG When compared with ECG of 19-MAY-2019 11:27, No significant change was found Confirmed by Teja Townsend ([id number]) on 05/20/2019 4:39:31 PM Referred By: Trev Camarena Confirmed By:Teja Townsend
[2019-05-20] MEDS ORDERED: ONDANSETRON INJ 2 MG/ML 2 ML VIAL IV PRN (16:58)
[2019-05-20] MEDS ORDERED: SODIUM CHLORIDE 0.9% 500 ML IV PRN (16:58)
[2019-05-20] MEDS ORDERED: ACETAMINOPHEN 325 MG TAB PO PRN (16:58)
[2019-05-20] MEDS ORDERED: ATROPINE SULFATE 0.1 MG/ML 10ML SYR IV PRN (16:58)
[2019-05-20] MEDS ORDERED: ISOSORBIDE MONO EXTENDED REL 30 MG TABCR PO ONE (16:58)
--- NOTE | 2019-05-20 17:03 | Post Anesthesia Assessment ---
Date of Service May 20, 2019 Post Sedation Assessment Vital Signs Temp Pulse Pulse Resp BP Pulse Ox 05/20/19 15:28 36.6 C 52 L 18 124/72 96 05/20/19 11:10 36.5 C 55 L 18 157/83 H 96 05/20/19 07:35 36.7 C 54 L 18 150/82 H 94 05/20/19 07:30 52 L 05/20/19 03:31 36.6 C 65 18 124/69 94 05/20/19 00:38 54 L 05/19/19 23:38 37.1 C 54 L 16 132/75 95 05/19/19 19:49 36.6 C 96 H 18 99/67 L 100 05/19/19 19:45 36.9 C 53 L 20 151/76 H 97 Recovery Score Activity: Moves 4 extremities Respiration: Deep Breath/Cough Circulation: +/-20% PreAnes Value Consciousness: Fully Awake Oxygen Saturation: > 92% On Room Air Discharge Sedation Level of Care: Phase I Post Sedation Plan On clinical assessment, the patient appears to have tolerated the sedation with out complications. Patient is recovering as anticipated. Patient will continue to be monitored by nursing and may be discharged when sedation discharge criteria are met per below protocol. Upon Completions of procedure up to 15 minutes continue every 5 minute vital signs and the P.A.R. score; then discharge to a Phase I or Fast Track to Phase II per the following guidelines: * Discharge Patient to appropriate Phase II area if PAR is 8 or greater or return to pre- procedure baseline. The post - procedure orders will be as directed. * If PAR score is less than 8 or not return to pre-procedure baseline then patient will follow Phase I monitoring till PAR is reached for Phase II. The Phase I may be done in procedure room or may call to secure a Phase I area. * If naloxone or flumazenil are used for reversal, hold in Phase I for continued monitoring from when last reversal dose was given for a minimum of 60 minutes or longer pending the nurse and/or physician discretion of patient condition before discharge to Phase II. Please call the Sedation Physician to re-evaluate and complete post-note for discharge to Phase II area. Do NOT discharge from procedure sedation or Phase 1 until post- sedation evaluation note is complete by procedure /sedation MD Sedation Discharge Instructions to be given to the patient at discharge to home.
--- NOTE | 2019-05-20 17:08 | Cardiac Catheterization ---
Cardiac Cath Procedure Full Procedure Date May 20, 2019 Pre-Procedure Diagnosis Pre-Procedure Diagnosis: Acute Coronary Syndrome AUC Score AUC Score: 07 Post-Procedure Diagnosis Post-Procedure Diagnosis: Severe CAD Procedure(s) Performed Procedure(s) Performed: Coronary Angiography, Left Heart Cath, LV Angiography, Ultrasound Guided Vascular Access (image saved) and Bypass Graft Angiography Supervisor Tree Trimming Jan Miguel MD Estimated Blood Loss Estimated Blood Loss: < 15 ml Medication(s) Medication(s): Fentanyl, Lidocaine 1%, Nicardipine, Nitroglycerin and Versed Summary of Findings LMT: ostial-prox 50%. LAD: 100% occluded proximally. Ramus/D1: proximal 100% LCx: prox long up to 40-50% in AV groove. Mid diffuse mild. Distal small caliber with mild diffuse. OM1 small. OM2 large mild diffuse disease. PLB small no disease RCA: medium to large. Dominant. Diffuse mild less than 40%. PLB 100%. PDA medium caliber. [place]-LAD: large, widely patent. [place] distal LAD with mild irregularities. MZL-LP-Pmnmc/D1: large. Widely patent. [place] vessels with diffuse mild disease. SVG-PLB/PDA: widely patent. Distal anastamosis appears to be at bifurcation. There is 99% stenosis. May have been present on previous cath but probably more severe now. LVEF: 65% Hemodynamics Rest Ao:: see procedure report Final Ao: see procedure report LV: see procedure rport Recommendations Recommendations: Medical Therapy and/or Counseling and Management Recommendatons (add anti-anginals. If Sx persist then high risk PCI at tertiary center (bifurcating SVG -PDA/PLB)) Specimens Specimens: None Procedural Complication(s) None Disposition Doorperson Or Luggage Porter Holding/Recovery I attest to the content of the Intraoperative Record and any orders documented therein. Any exceptions are noted below. ACC Data: Doorperson Or Luggage Porter Cardiac Status Clinical evaluation leading to the procedure CAD Presenation: Unstable angina Anginal Classification: No Symptoms Heart Failure: No Cardiogenic Shock within 24 Hours: No Cardiac Arrest within 24 Hours: No Imaging Studies Past 6 Months: No Stress Studies Past 6 Months: No Coronary Anatomy Dominant: Right Left Main (% Stenosis): Ostial (50%) and Proximal (50%) LAD (% Stenosis): Proximal (100%) Circumflex (% Stenosis): Proximal (40-50%) RCA (% Stenosis): Normal (diffuse less than 40%) R PL1 (% Stenosis): Ostial (100%) Ramus (% Stenosis): Proximal (100%) Grafts - LAD (%): Normal Grafts - Circumflex (%): Normal Grafts - RCA (%): Normal Grafts - Ramus (%): Normal Left Ventricular Angiography EF (%): 65 Diagnostic Physicians Name: Jan Miguel MD Status: Elective Closure Device Percutaneous Entry Location: Femoral Closure Device: Angio-Seal Recommendations: Medical Therapy and/or Counseling and Management Recommendatons (add anti-anginals. If Sx persist then high risk PCI at tertiary center (bifurcating SVG -PDA/PLB)) PCI Indication: Unstable Angina Intraprocedure Events Significant Disection: No Perforation: No
[2019-05-20] MEDS: LOSARTAN POTASSIUM 25 MG TAB PO SCH ×2 (17:47→17:54)
[2019-05-20] MEDS: TAMSULOSIN HCL 0.4 MG CAP PO SCH (17:48)
[2019-05-20] MEDS: METOPROLOL SUCC 50MG EXT REL TAB PO SCH (17:48)
[2019-05-20] MEDS: ENOXAPARIN INJ 40 MG/0.4 ML SYR SQ SCH (17:49)
[2019-05-20] MEDS: SODIUM CHLORIDE 0.9% 1000ML 1,000 ML IV SCH (17:53)
[2019-05-20] MEDS: ASPIRIN 81 MG ECTAB PO SCH (20:38)
[2019-05-20] MEDS: PANTOprazole 40 MG TAB PO SCH (20:38)
[2019-05-20] MEDS: SIMVASTATIN 20 MG TAB PO SCH (20:39)
[2019-05-21] MEDS: LEVOTHYROXINE SODIUM 75 MCG TABLET PO SCH (06:05)
[2019-05-21] MEDS: SODIUM CHLORIDE 0.9% 1000ML 1,000 ML IV SCH (06:05)
[2019-05-21 06:28] LABS: Hematocrit (blood only) 42.3 % (42-52); Hemoglobin 14.4 g/dL (14.0-18.0); Mean Corpuscular Hemoglobin 29.1 pg (25-34); Mean Corpuscular Volume 85.5 fL (80-100); Mean Platelet Volume 9.8 fL (7.4-10.4); Platelet Count 148 K/uL (130-400); RDW Coefficient of Variation 13.6 % (11.5-14.5); RDW Standard Deviation 42.2 fL (36.4-46.3); Red Blood Count 4.95 M/uL (4.7-6.1)
[2019-05-21 06:55] LABS: Calcium 8.3 mg/dl (8.5-10.1); Creatinine Clr Calc Pharmacy 91.9 ml/min; Est GFR (African American) 87.4; Est GFR (Non-African American) 75.4
[2019-05-21] MEDS ORDERED: ISOSORBIDE MONO EXTENDED REL 30 MG TABCR PO SCH (09:00)
[2019-05-21] MEDS: METOPROLOL SUCC 50MG EXT REL TAB PO SCH (09:17)
[2019-05-21] MEDS: TAMSULOSIN HCL 0.4 MG CAP PO SCH (09:17)
[2019-05-21] MEDS: LOSARTAN POTASSIUM 25 MG TAB PO SCH (09:17)
--- NOTE | 2019-05-21 11:52 | Electrocardiogram Report ---
Test Reason : Blood Pressure : / mmHG Vent. 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
--- NOTE | 2019-05-21 12:45 | Cardiology Progress Note ---
Date of Service May 21, 2019 Assessment & Plan (1) CAD (coronary artery disease): -- post CABG -- Severe distal SVG-PDA/PLB disease -- Moderate SVG-OM ostial disease 2. Hypertension 3. Morbid obesity -- reviewed angiography from cardiac catheterization yesterday -- patient has a focal 95% stenosis in SVG prior to anastomosis with PDA. PDA and PLB are small vessels that supply relatively small amount of myocardium. Also has some flow to this distribution from [place] vessels. -- Discussed with patient that reasonable to proceed with attempt at medical management. If refractory symptoms in the future do think SVG could be potentially stented. -- Continue current toprol XL. Home on new Imdur and will titrate up as an outpatient -- Can get echo as an outpatient. -- No evidence of congestion on exam. BNP negative. Does not have acute heart failure. No need for additional diuretics. -- continue aspirin, statin, ARB. From a cardiac standpoint OK with discharge today. Follow-up with cardiology in 1-2 weeks. Admission and Anticipated Discharge Date Admission Date: May 19, 2019 Subjective Feeling well. Reports baseline mild chest pain that is unchanged for years. Shortness of breath worse over the preceding week. Denies significant shortness of breath today but hasn't done much. Reports mild headache since starting imdur. Telemetry reviewed -- sinus rhythm Review of Systems Review of Systems: All systems reviewed & are unremarkable except as noted in HPI & below Physical Exam Physical Exam: General: Comfortable, no acute distress Eyes: Sclerae anicteric, extraocular movements intact HENT: Oropharynx clear mucous membranes moist Neck: No JVD. Lungs: Clear to auscultation bilaterally Cardiac: regular, bradycardic Abdomen: Soft, nontender Neuro: Nonfocal Psych: Alert orient x3, normal affect and mood Extremities/Vascular: -- 2+ radial bilaterally -- RT GOL[employer]ESSION[employer] access, mild ecchymosis. No hematoma. Pulse intact -- No edema Results & Data ([facility]) Vital Signs (Past 12 Hours) Vital Signs Temp Pulse Pulse Pulse Resp BP Pulse Ox 05/21/19 12:18 97.9 F 62 18 142/73 H 95 05/21/19 09:46 51 L 05/21/19 07:07 98.2 F 70 19 129/63 96 05/21/19 03:54 98.2 F 55 L 18 116/59 L 95 PG Care Time/CCT Total # of Minutes Spent Total Time Spent with Patient: Total time spent is greater than 50% in coordination of care (as documented) at patient's floor/unit and/or counseling patient: Coding Level of Care Code 60439 Subseq Hosp Care Lvl 3 Diagnoses CAD (coronary artery disease) I25.10 Associated angina: angina presence unspecified Coronary Disease-Associated Artery/Lesion type: unspecified vessel or lesion type [place] vs. transplanted heart: unspecified whether [place] or transplanted heart (1) CAD (coronary artery disease) Associated angina: angina presence unspecified Coronary Disease-Associated Artery/Lesion type: unspecified vessel or lesion type [place] vs. transplanted heart: unspecified whether [place] or transplanted heart Qualified Code(s): I25. 10 - Atherosclerotic heart disease of [place] coronary artery without angina pectoris
--- NOTE | 2019-05-21 14:18 | Discharge Summary ---
Date of Service date of admission - May 19, 2019 date of discharge - May 21, 2019 Admission HPI Per Admitting Provider Mr. Carlisle is a 73 year old male with past medical history of CABG x 5 in 2006, HLD, HTN, Hypothyroidism, Obesity, GERD who presented with chest pain. Pt. reports he has had chronic intermittent left sided chest pain at home over the last few years. Most recent stress test was in 2017, was negative for ischemia. Pt. reports he developed increased chest pain and shortness of breath over the last few days. Chest pain initially occurred with exertion only but has increased to also be present at rest. He walked on the treadmill for ~10 minutes this morning but had to discontinue exercising due to increased chest pain, SOB. Chest pain is located on the left side, radiates to his left underarm. Denies radiation to jaw. Shortness of breath is present with exertion, denies SOB at rest. Was diaphoretic this morning, denies nausea/vomiting, abd pain, constipation or diarrhea, dysuria or hematuria. ER course: Trop was negative; EKG showed sinus bradycardia. He received Aspirin 324 mg and Nitro 0.4 mg sublingually. CXR showed mild pulm edema. Will be admitted for cardiac work up. Principal Diagnosis chest pain, 2nd to CAD; medical management advised at this time Discharge Exam Constitutional + morbidly obese; no acute distress and no altered mental status ENMT external ear and nose normal, oropharynx normal Respiratory normal respiratory effort, lungs clear to auscultation Cardiovascular Rate/Rhythm: regular rate and regular rhythm Heart Sounds: normal S1 and normal S2; no murmur Vessels: posterior tibial pulses present and dorsalis pedis pulses present; no JVD Extremities: no edema Gastrointestinal (Abdomen) normal bowel sounds, soft, nontender, no hepatosplenomegaly Skin right groin - prior puncture site for heart cath - clean, no hematoma Psychiatric A+Ox3, euthymic affect Discharge Data Allergies Allergy/AdvReac Type Severity Reaction Status Date / Time No Known Allergies Allergy Unknown Verified 05/19/19 12:28 Consultations [facility] cardiology Procedures Performed Operation Date: 05/20/19 16:00 Actual Procedures p Cath, Left w/Cors Vent Grafts - Jan Miguel MD s Cineradiography w/Routine Exam - Jan Miguel MD Summary of Findings LMT: ostial-prox 50%. LAD: 100% occluded proximally. Ramus/D1: proximal 100% LCx: prox long up to 40-50% in AV groove. Mid diffuse mild. Distal small caliber with mild diffuse. OM1 small. OM2 large mild diffuse disease. PLB small no disease RCA: medium to large. Dominant. Diffuse mild less than 40%. PLB 100%. PDA medium caliber. THOMPSON-LAD: large, widely patent. [place] distal LAD with mild irregularities. ATK-YI-Lscpl/D1: large. Widely patent. [place] vessels with diffuse mild disease. SVG-PLB/PDA: widely patent. Distal anastamosis appears to be at bifurcation. There is 99% stenosis. May have been present on previous cath but probably more severe now. Ordered Studies 05/20/19 15:00 Cath Imgs for PACS use only Routine Hospital Course (1) Chest pain: - Presented with chest pain with exertion concerning for cardiac source due to h/o CAD. - EKG did not show ischemic changes and serial troponins were negative. - [id number] cardiology was consulted and cardiac cath was pursued. - Cardiac cath showed the findings listed above. The culprit vessel was felt to be the SVG-PLB/PDA graft which showed a 99% stenosis at the bifurcation. - Instead of opting for stenting medical management was advised; thus, patient was started on imdur 30mg daily. - If symptoms persist despite the imdur then patient may be referred to [facility] or [facility] for complex stenting of the above lesion. - Patient was also given a prescription for nitro SL to be used prn. (2) CAD (coronary artery disease): - H/o CABG x 5 in 2005. - Most recent cardiac cath in 2013. - Most recent stress test in 2017. - s/p cardiac cath this admission - see results above. - Continue Metoprolol, statin, ASA as prescribed. - Imdur 30mg daily added during this stay. (3) S/P CABG x 5: - In 2005, see above. (4) HTN (hypertension): - Continue beta marbin. - Continue home Losartan. - Controlled while here. (5) HLD (hyperlipidemia): - Continue statin. - Lipid panel was WNL (LDL was 41). (6) Hypothyroidism: - Continue Synthroid 75 mcg daily. - TSH was 1.5 in Feb 2019. (7) Hyperglycemia: - BG 100's -- A1C was 5.3%. (8) GERD (gastroesophageal reflux disease): - PPI daily. (9) Stage 2 chronic kidney disease: Cr level was 1 during the visit. (10) Obesity: - BMI 36.9 Total Time Total Time Spent Total Time Spent (In Minutes): 40 Total Time Includes: Examination of the Patient, Discharge Planning, Medication Reconciliation and Communication With Other Providers Discharge Plan Discharge Items Patient Disposition: Home - Self-Care Reason For Visit: CHEST PAIN Discharge Diagnosis: chest pain, due to Coronary Artery Disease -- heart catheterization with blockage of one of the grafts; no heart attack during this stay however. Activity: Per Instructions section Non-emergency contact: Primary Care Provider and [employer] Sales Associate Call non-emergency contact if: you have any medication questions, your pain is unusual for you and your pain is concerning for you Follow-up/Referrals: Alec Obando MD [Physician] - 05/31/19 10:00 am (please see Dr Obando within 1 week ) Trev Camarena MD [Primary Care Provider] - 05/26/19 3:15 pm Diet: Heart Healthy Addtl Attending Provider Instructions: You were admitted to the hospital because of chest pain. Fortunately the blood work for the heart did NOT show evidence of a heart attack. You underwent a heart catheterization on 05/20/2019 showing a blockage in one of the grafts from your prior open heart surgery. The cardiologists felt that we should try to treat this medically for now with medications. If you continue to have symptoms then Dr Obando may refer you to [facility] or [facility] to attempt to place a stent across the blockage found. You have been started on imdur (isosorbide mononitrate) 30mg once daily for your heart. Start this tomorrow. You have been given a bottle of nitroglycerin to use under the tongue in the event you have chest pains in the future. Keep this bottle with you at all times. Instructions following your femoral cardiac catheterization: Do not strain during bowel movements for the first 3 to 4 days after the procedure to prevent bleeding from the catheter insertion site. Avoid heavy lifting (more than 10 pounds) and pushing or pulling heavy objects for the first 5 to 7 days after the procedure. Do not participate in strenuous activities for 5 days after the procedure. This includes most sports - jogging, golfing, play tennis, and bowling. You may climb stairs if needed, but walk up and down the stairs more slowly than usual. Gradually increase your activities until you reach your normal activity level within one week after the procedure. You may remove the dressing on Thursday morning, 05/23/2019. Follow-up with Dr Obando within 1 week. Return to [facility] if - * you have recurrent chest pains * you have to use your nitroglycerin tablets * you have shortness of breath * you have any concerns about the cath site in the right groin (swelling, redness, etc) * any other concerns Pending Studies at Discharge: No Stand-Alone Forms: My [facility], Smoking Cessation Medications and DC Order Prescriptions: New isosorbide mononitrate 30 mg Tablet Extended Release 24 Hr 30 mg PO QAM Qty: 30 RF: 5 nitroglycerin [Nitrostat] 0.4 mg Tablet, Sublingual 0.4 mg sublingual UD PRN (Reason: chest pain) Qty: 1 RF: 0 Continued aspirin [Adult Aspirin Regimen] 81 mg tablet,delayed release (DR/EC) 81 mg PO HS RF: 0 omega-3 fatty acids [Fish Oil Concentrate] 1,000 mg capsule 1,000 mg PO QAM RF: 0 glucosamine-chondroitin 900 mg tablet 900 mg PO QAM RF: 0 levothyroxine [Synthroid] 75 mcg tablet 75 mcg PO DAILYBB RF: 0 losartan [Cozaar] 25 mg tablet 25 mg PO QAM RF: 0 metoprolol succinate [Toprol XL] 50 mg tablet extended release 24 hr 50 mg PO QAM RF: 0 omeprazole 20 mg capsule,delayed release(DR/EC) 20 mg PO HS RF: 0 simvastatin [Zocor] 40 mg tablet 20 mg PO HS RF: 0 tamsulosin [Flomax] 0.4 mg capsule 0.4 mg PO QAM RF: 0 Discharge Orders: Discharge Order (Routine); Ordered 05/21/19 Ordered By: Tim Claudio Admission Data Admit Date/Time: 05/19/19 15:23 Attending Provider: Tim Claudio Admit Provider: Ofe Ross Primary Care Provider: Trev Camarena Other Providers: Teja Townsend Other Interventions: Discharge Summary Assessment (RN) Last Done: 05/21/19 14:21 DC Date/Time DO NOT enter until pt leaves facility: 05/21/19 14:48 Coding Level of Care Code 41380 OBS Care - Discharge Diagnoses Chest pain R07.9 Chest pain type: unspecified CAD (coronary artery disease) I25.10 Associated angina: angina presence unspecified Coronary Disease-Associated Artery/Lesion type: unspecified vessel or lesion type [place] vs. transplanted heart: unspecified whether [place] or transplanted heart S/P CABG x 5 Z95.1 HTN (hypertension) I10 Hypertension type: unspecified HLD (hyperlipidemia) E78.5 Hypothyroidism E03.9 Hyperglycemia R73.9 GERD (gastroesophageal reflux disease) K21.9 Stage 2 chronic kidney disease N18.2 Obesity E66.9
--- NOTE | 2019-11-16 16:57 | Cardiac Catheterization ---
Cardiac Cath Procedure Brief Procedure Date May 19, 2019 Pre-Procedure Diagnosis Pre-Procedure Diagnosis: Acute Coronary Syndrome AUC Score AUC Score: 07 Post-Procedure Diagnosis Post-Procedure Diagnosis: Severe CAD and Successful PCI Procedure(s) Performed Procedure(s) Performed: Coronary Angiography, Left Heart Cath, Ultrasound Guided Vascular Access, Bypass Graft Angiography and Femoral Artery Angiography Button Clamper Jan Miguel MD Estimated Blood Loss Estimated Blood Loss: None (<15 ml) Medication(s) Medication(s): Fentanyl, Heparin, Lidocaine 1%, Nicardipine and Versed Preliminary Findings LMT: ostial 50% LAD: proximal 100% Ramus/D1: proximal 100% LCx: proximal long eccentric 40-50%. OM1 small. OM2 large. PLB small. Mild scattered disease. RCA: medium to large. Dominant. Up to 40% disease. PLB 100%. PDA ok. THOMPSON-LAD: patent. [place] vessel with mild disease. [id number]-Wcypf: patent. [place] vessels good. SVG-PLB-PDA: patent. At bifurcation 99% stenosis. High risk for PCI and likely present previously EF: 65% Recommendations Recommendations: Medical Therapy and/or Counseling Specimens Specimens: None Procedural Complication(s) None Disposition Recovery Room\PACU
== END 2019-05-21 14:48 | disposition home or self-care (01) ==
LOC: ED 11:17 → 2N 11:17 → SUATTDRO 15:23 → 2N 16:18 → 2S 05-20 17:50

== ENCOUNTER 2019-06-02 06:59 | Observation (INO) ==
[2019-06-02] MEDS ORDERED: ASPIRIN 81 MG CHEW ONE (07:54)
[2019-06-02] MEDS ORDERED: HEPARIN (PORCINE) 1000 UNIT/ML 10 ML (CATH LAB USE ONLY) ONE ×2 (07:56→09:28)
[2019-06-02] MEDS ORDERED: NiCARDipine HCL INJ 2.5 MG/ML 10 ML AMP ONE (07:56)
[2019-06-02] MEDS ORDERED: fentaNYL citrate 100 MCG/2 ML VIAL ONE ×2 (07:57→09:49)
[2019-06-02] MEDS ORDERED: NITROGLYCERIN/D5W 100MCG/ML 20ML SYR ONE ×2 (07:57→08:29)
[2019-06-02] MEDS ORDERED: MIDAZOLAM HCL 1 MG/ML 2ML VIAL ONE ×3 (07:57→10:09)
--- NOTE | 2019-06-02 07:57 | Pre Anesthesia Assessment ---
Date of Service June 02, 2019 Pre Sedation Assessment Vital Signs Temp Resp Pulse Ox 06/02/19 07:19 97.9 F 16 96 Cardiovascular RRR, no murmur, no edema Respiratory normal respiratory effort, lungs clear to auscultation Pre-Sedation Airway Assessment Smoking Status: Never smoker Hx Sleep Apnea: No Hx Difficult Intubation: No Short, Thick Neck: No Thyromental Distance: > or= 3.5 Finger Breadths Oral Cavity: + WNL Mallampati Class: II ASA: ASA3 NPO Status Date of Last Intake of Fluids: 06/01/19 Time of Last Intake of Fluids: 05:00 Date of Last Intake of Solid Food: 06/01/19 Time of Last Intake of Solid Foods: 23:30 Procedure Planning Contraindications for Sedation: none Current Medications Reviewed: Yes Notes The planned sedation has been discussed with the patient. Informed Consent was obtained. I have identified the patient, determined the appropriateness of sedation and have assessed the patient immediately prior to the procedure. All medicine(s) and interventions are by my order.
--- NOTE | 2019-06-02 07:58 | History & Physical Bridge Note ---
Date of Service June 02, 2019 History & Physical Bridge Note I have examined the patient, reviewed the History & Physical and in the interval since the performance of the History & Physical I have noted the following changes of clinical significance: no changes noted
[2019-06-02] MEDS: ADENOSINE IV SOLN 3 MG/ML 2 ML VIAL IV ONE ×2 (10:14→10:17)
[2019-06-02] MEDS ORDERED: CLOPIDOGREL BISULFATE 300 MG TAB ONE (10:20)
[2019-06-02] MEDS ORDERED: ONDANSETRON INJ 2 MG/ML 2 ML VIAL IV PRN (10:31)
[2019-06-02] MEDS ORDERED: NITROGLYCERIN SL 0.4 MG/TAB TAB SL PRN (10:33)
--- NOTE | 2019-06-02 10:36 | Post Anesthesia Assessment ---
Date of Service June 02, 2019 Post Sedation Assessment Vital Signs Temp Resp Pulse Ox 06/02/19 07:19 97.9 F 16 96 Recovery Score Activity: Moves 4 extremities Respiration: Deep Breath/Cough Circulation: +/-20% PreAnes Value Consciousness: Fully Awake Oxygen Saturation: O2 needed for >90% Discharge Sedation Level of Care: Fast Track Phase II Post Sedation Plan On clinical assessment, the patient appears to have tolerated the sedation without complications. Patient is recovering as anticipated. Patient will continue to be monitored by nursing and may be discharged when sedation discharge criteria are met per below protocol. Upon Completions of procedure up to 15 minutes continue every 5 minute vital signs and the P.A.R. score; then discharge to a Phase I or Fast Track to Phase II per the following guidelines: * Discharge Patient to appropriate Phase II area if PAR is 8 or greater or return to pre- procedure baseline. The post - procedure orders will be as directed. * If PAR score is less than 8 or not return to pre-procedure baseline then patient will follow Phase I monitoring till PAR is reached for Phase II. The Phase I may be done in procedure room or may call to secure a Phase I area. * If naloxone or flumazenil are used for reversal, hold in Phase I for continued monitoring from when last reversal dose was given for a minimum of 60 minutes or longer pending the nurse and/or physician discretion of patient condition before discharge to Phase II. Please call the Sedation Physician to re-evaluate and complete post-note for discharge to Phase II area. Do NOT discharge from procedure sedation or Phase 1 until post- sedation evaluation note is complete by procedure /sedation MD Sedation Discharge Instructions to be given to the patient at discharge to home.
[2019-06-02] MEDS ORDERED: SODIUM CHLORIDE 0.9% 1000ML 500 ML IV SCH (10:45)
--- NOTE | 2019-06-02 10:53 | Cardiac Catheterization ---
[facility] Data: [place] Cardiac Status Clinical evaluation leading to the procedure CAD Presenation: Unstable angina Anginal Classification: CCS III Heart Failure: No Cardiogenic Shock within 24 Hours: No Cardiac Arrest within 24 Hours: No Imaging Studies Past 6 Months: Yes Stress Studies Past 6 Months: No Diagnostic Physicians Name: Floyd Obando MD Status: Elective Closure Device Percutaneous Entry Location: Femoral (Diagnostic via radial) Closure Device: Angio-Seal and Radial Band Recommendations: PCI without planned CABG PCI Indication: Angina despite med therapy and Unstable Angina Lesion Segment Name: SVG to PDA Culprit Artery: Yes Stenosis Prior to Rx (%): 95% Chronic Total Occlusion: No IVUS: No FFR: No Pre-Procedure TAO Flow: 2 Previously Treated Lesion: No Lesion Complexity: High/C Lesion Length (mm): 20 Thrombus Present: Yes Bifurcation Lesion: Yes Guidewire Across Lesion: Stenosis Post-Procedure (%): 0 Post-Procedure TAO Flow: 3 Devices(s) Deployed: Yes Yes Intraprocedure Events Significant Disection: No Perforation: No Cardiac Cath Procedure Full Procedure Date June 02, 2019 Pre-Procedure Diagnosis Pre-Procedure Diagnosis: Acute Coronary Syndrome and Angina AUC Score AUC Score: 07 Post-Procedure Diagnosis Post-Procedure Diagnosis: Severe CAD and Successful PCI Procedure(s) Performed Procedure(s) Performed: Coronary Angiography, Left Heart Cath, Drug Eluting Stent, Ultrasound Guided Vascular Access, Bypass Graft Angiography and Femoral Artery Angiography International Editorial Producer Floyd Obando MD Budget Counselor(s) Megan Estimated Blood Loss Estimated Blood Loss: 15 Medication(s) Medication(s): Clopidogrel, Fentanyl, Heparin, Lidocaine 1%, Nicardipine, Nitroglycerin and Versed Summary of Findings Indication: Unstable angina Access: 6 Fr slender right radial artery, 6 Fr right common femoral artery under ultrasound guidance Catheters: Diagnostic JR4. Via radial artery unable to cannulate SVG to PDA/PLB with AR-1, AL-1 and switch to femoral access. From femoral access MPA Findings: For full details of patient's coronary angiography please see cath report dictated by Dr. Miguel. Briefly, patient found to have a severe acute stenosis in his sequential vein graft to right PDA/PLB just prior to anastomosis with PDA. Medical management initially attempted but continued to have limiting angina with minimal exertion. Decision to proceed with PCI. Diagnostic angiography of right coronary artery revealed moderate mid and distal segment disease. Ostium of right PDA subtotally occluded with minimal comp etitive flow. PLB 1 with moderate ostial stenosis. 80% ostial stenosis before bifurcating PLB2 with competitive flow from graft in mid segment. -- PCI -- Antithrombotic therapy: Heparin, clopidogrel Procedure: Vein graft cannulated with MPA guide Class B Driver 50 wire passed across SVG lesion and placed into distal PDA Whisper wire placed into distal PLB SVG/anastomosis dilated with 2.0 and 2.5 balloons over both wires and PDA and PLB Dilated lesion stented with 2.5 x 26 mm [place] drug-eluting stent from SVG into PDA Unable to rewire back into sequential graft in the PLB Stent post-dilated and vein graft with 3.0 noncompliant balloon IC vasodilators administered for spasm Post procedure TAO 3 flow, stent well expanded with minimal residual stenosis. Residual stenosis at takeoff of sequential graft to PLB but TAO-3 flow. No apparent complications Arterial Closure: TR, Angio-Seal Summary: 1. Successful PCI of distal SVG across anastomosis into right PDA with single drug-eluting stent (2.5 x 26 mm [place]; postdilated with 3.0 proximally). --Angioplasty of proximal aspect of sequential graft to right PLB2 with 2.5 balloon with moderate residual stenosis (right PLB2 receives brisk flow from [place] vessel) Recommendations: To PCU for continued monitoring Loaded with clopidogrel 600 mg in [place] Continue dual-antiplatelet therapy for at least 1 year Continue statin, and ASCVD risk factor modification Continue current antianginal therapy. Titrate as necessary Hemodynamics Rest Ao:: 106/62/82 Final Ao: 112/56/83 LV: 103/6 Recommendations Recommendations: PCI without planned CABG Specimens Specimens: None Radiation Exposure (mGy) 6847 Contrast (mls) 130 Fluids (cc crystalloids) Fluids (cc crystalloids): 250 Drains Drains: none Anesthesia moderate Procedural Complication(s) None Disposition PCU I attest to the content of the Intraoperative Record and any orders documented therein. Any exceptions are noted below. [facility] Card Cath Procedure Codes Cardiac Catheterization Procedure 1: Cardiovascular Cath Procedures: 43206 Coronaries & LHC (+/-LV) & Grafts/IM (arterial & venous) Moderate Sedation Procedure 1: Sedation/Anesthesia: 25307 Mod Sedation by the same physician;Init15 Min Child Age 5 & Up Procedure 2: Sedation/Anesthesia: 71699 Mod Sedation by the same physician; Ea [id number] Minutes Stenting Procedure 1: Cardiovascular Stent Procedures: 18597 Perc tranluminal revascularization of or throughout CABG PG Care Time/CCT Total # of Minutes Spent Total Time Spent with Patient: Total time spent is greater than 50% in coordination of care (as documented) at patient's floor/unit and/or counseling patient:
--- NOTE | 2019-06-02 15:49 | Electrocardiogram Report ---
Test Reason : Blood Pressure : / mmHG Vent. Rate : 064 BPM Atrial Rate : 064 BPM P-R Int : 150 ms QRS Dur : 080 ms QT Int : 414 ms P-R-T Axes : 064 -22 067 degrees QTc Int : 427 ms Normal sinus rhythm Inferior-posterior infarct (cited on or before 14-APR-2002) Abnormal ECG When compared with ECG of 20-MAY-2019 18:34, Serial changes of Inferior-posterior infarct Present Confirmed by Floyd Gray ([id number]) on 06/02/2019 3:48:40 PM Referred By: Alec Obando Confirmed By:Rolando Gray
[2019-06-03 05:40] LABS: Basophils # (auto) 0.05 K/uL (0-0.2); Basophils % (auto) 0.6 %; Eosinophils # (auto) 0.17 K/uL (0-0.5); Eosinophils % (auto) 1.9 %; Hematocrit (blood only) 42.6 % (42-52); Hemoglobin 14.8 g/dL (14.0-18.0); Immature Granulocytes # (auto) 0.02 K/uL (0.00-0.02); Immature Granulocytes % (auto) 0.2 %; Lymphocytes # (auto) 2.33 K/uL (1.2-3.4); Lymphocytes % (auto) 25.9 %; Mean Corpuscular Hemoglobin 29.6 pg (25-34); Mean Corpuscular Hgb Conc 34.7 g/dL (32-36); Mean Corpuscular Volume 85.2 fL (80-100); Mean Platelet Volume 9.8 fL (7.4-10.4); Monocytes # (auto) 0.62 K/uL (0.11-0.59); Monocytes % (auto) 6.9 %; Neutrophils # (auto) 5.81 K/uL (1.4-6.5); Neutrophils % (auto) 64.5 %; Platelet Count 145 K/uL (130-400); RDW Coefficient of Variation 13.9 % (11.5-14.5); RDW Standard Deviation 42.4 fL (36.4-46.3)
[2019-06-03 06:22] LABS: BUN Creatinine Ratio 13.6 (10-20); Calcium 8.4 mg/dl (8.5-10.1); Est GFR (African American) 86.3; Est GFR (Non-African American) 74.5; Potassium 4.1 mmol/L (3.5-5.1)
[2019-06-03] MEDS ORDERED: LEVOTHYROXINE SODIUM 75 MCG TABLET PO SCH (06:30)
--- NOTE | 2019-06-03 08:18 | Discharge Summary ---
Date of Service June 03, 2019 Admission HPI Per Admitting Provider Mr. Carlisle is a very pleasant 73-year-old man with a history of coronary artery disease post 5 vessel CABG in 2006 ([facility], THOMPSON to LAD, sequential SVG to diagonal and OM, sequential SVG to PDA and PLB), hypertension, dyslipidemia, GERD, BPH. Admitted 05/19/2019 with intermittent left-sided chest pain/shortness of breath primarily with exertion over the preceding several days. Prior to this patient active, still working and largely chest pain-free. Serial troponin negative, ECGs without dynamic ST changes. Catheterization with Dr. Miguel revealed severe multivessel [place] disease. THOMPSON to LAD patent, SVG to OM/D1 patent. 99% stenosis in distal SVG to PLB/PDA prior to bifurcation. Decision to manage medically and discharged on new Imdur. Since discharge continued to have exertional chest pain/shortness of breath just with walking from room to room in his home. Intermittent headache with nitro. No other new symptoms. Specialty Data Specialty Data PCI 06/03/2019: 1. Successful PCI of distal SVG across anastomosis into right PDA with single drug-eluting stent (2.5 x 26 mm [place]; postdilated with 3.0 proximally). --Angioplasty of proximal aspect of sequential graft to right PLB2 with 2.5 balloon with moderate residual stenosis (right PLB2 receives brisk flow from [place] vessel) Discharge Data Procedures Performed Operation Date: 06/02/19 08:00 Actual Procedures p Cineradiography w/Routine Exam - Alec Obando MD s Drug Eluting Stent SGl Vessel - Alec Obando MD s Cath, Left w/Cors Vent Grafts - Alec Obando MD Hospital Course (1) CAD (coronary artery disease): Patient underwent repeat angiography and eventual PCI of vein graft to PDA/PLB via right common femoral artery. One stent was placed across a nastomosis of vein graft with PDA and angioplasty done to proximal aspect of sequential graft to PLB. Good angiographic result. Patient tolerated procedure well. Post procedure admitted to telemetry for further observation. Had no further chest pain. No arrhythmia on monitor. No apparent access site complications. Post procedure labs stable. Discharge to home on DAPT with aspirin and clopidogrel. Follow-up with cardiology in 2 weeks. Discharge Instructions Home Medications antiarthritic combination no.2 900 mg tablet 900 mg PO QAM 03/10/19 [History Confirmed 05/31/19] aspirin 81 mg tablet,delayed release 81 mg PO HS 03/10/19 [History Confirmed 05/31/19] levothyroxine 75 mcg tablet 75 mcg PO DAILYBB 03/10/19 [History Confirmed 05/31/19] losartan 25 mg tablet 25 mg PO QAM 03/10/19 [History Confirmed 05/31/19] metoprolol succinate 50 mg tablet,extended release 24 hr 50 mg PO QAM 03/10/19 [History Confirmed 05/31/19] omega-3 fatty acids 1,000 mg capsule 1,000 mg PO QAM 03/10/19 [History Confirmed 05/31/19] omeprazole 20 mg capsule,delayed release 20 mg PO HS 03/10/19 [History Confirmed 05/31/19] tamsulosin 0.4 mg capsule 0.4 mg PO QAM 03/10/19 [History Confirmed 05/31/19] isosorbide mononitrate 30 mg PO QAM #30 tab 05/21/19 [Rx Confirmed 05/31/19] nitroglycerin [Nitrostat] 0.4 mg SUBLINGUAL UD PRN #1 btl 05/21/19 [Rx Confirmed 05/31/19] B [id number] 1 tab PO DAILY tab 05/31/19 [History Confirmed 05/31/19] atorvastatin 80 mg tablet 40 mg PO DAILY tab 05/31/19 [History Confirmed 05/31/19] clopidogrel 75 mg PO QAM #30 tab 06/03/19 [Rx] pantoprazole 40 mg PO QAM #30 tab 06/03/19 [Rx] Coding Level of Care Code 90415 OBS Care - Discharge Diagnoses CAD (coronary artery disease) I25.10 Associated angina: angina presence unspecified Coronary Disease-Associated Artery/Lesion type: unspecified vessel or lesion type [place] vs. transplanted heart: unspecified whether [place] or transplanted heart
[2019-06-03] MEDS ORDERED: TAMSULOSIN HCL 0.4 MG CAP PO SCH (09:00)
[2019-06-03] MEDS ORDERED: ATORVASTATIN 40 MG TAB PO SCH (09:00)
[2019-06-03] MEDS ORDERED: METOPROLOL SUCC 50MG EXT REL TAB PO SCH (09:00)
[2019-06-03] MEDS ORDERED: LOSARTAN POTASSIUM 25 MG TAB PO SCH (09:00)
[2019-06-03] MEDS ORDERED: ISOSORBIDE MONO EXTENDED REL 30 MG TABCR PO SCH (09:00)
[2019-06-03] MEDS ORDERED: ASPIRIN 81 MG ECTAB PO SCH (09:00)
[2019-06-03] MEDS ORDERED: OMEGA-3 (PURIFIED FISH OIL) 1 GM CAP PO SCH (09:00)
[2019-06-03] MEDS ORDERED: CLOPIDOGREL BISULFATE 75 MG TAB PO SCH (09:00)
[2019-06-03] MEDS ORDERED: PANTOprazole 40 MG TAB PO SCH (09:00)
[2019-06-03] MEDS ORDERED: ENOXAPARIN INJ 40 MG/0.4 ML SYR SQ SCH (10:30)
== END 2019-06-03 12:33 | disposition home or self-care (01) ==
LOC: CC 06:59 → 2E 06:59

== ENCOUNTER 2021-11-04 06:58 | Observation (INO) ==
[2021-11-04] MEDS ORDERED: ASPIRIN 81 MG CHEW ONE (08:15)
[2021-11-04] MEDS ORDERED: CLOPIDOGREL BISULFATE 75 MG TAB ONE (08:15)
--- NOTE | 2021-11-04 08:21 | History & Physical Bridge Note ---
Date of Service November 04, 2021 History & Physical Bridge Note I have examined the patient, reviewed the History & Physical and in the interval since the performance of the History & Physical I have noted the following changes of clinical significance: no changes noted
--- NOTE | 2021-11-04 08:21 | Pre Anesthesia Assessment ---
Date of Service November 04, 2021 Pre Sedation Assessment Vital Signs Temp 11/04/21 07:11 98.1 F Cardiovascular RRR, no murmur, no edema Respiratory normal respiratory effort, lungs clear to auscultation Pre-Sedation Airway Assessment Smoking Status: Never smoker Hx Sleep Apnea: No Hx Difficult Intubation: No Short, Thick Neck: No Thyromental Distance: > or= 3.5 Finger Breadths Oral Cavity: + WNL Mallampati Class: I ASA: ASA3 NPO Status Date of Last Intake of Fluids: 11/03/21 Date of Last Intake of Solid Food: 11/03/21 Procedure Planning Contraindications for Sedation: none Current Medications Reviewed: Yes Notes The planned sedation has been discussed with the patient. Informed Consent was obtained. I have identified the patient, determined the appropriateness of sedation and have assessed the patient immediately prior to the procedure. All medicine(s) and interventions are by my order.
[2021-11-04] MEDS ORDERED: MIDAZOLAM HCL 1 MG/ML 2ML VIAL ONE (08:27)
[2021-11-04] MEDS ORDERED: niCARdipine HCL INJ 2.5 MG/ML 10 ML AMP ONE (08:27)
[2021-11-04] MEDS ORDERED: fentaNYL citrate 100 MCG/2 ML VIAL ONE (08:27)
[2021-11-04] MEDS ORDERED: NITROGLYCERIN/D5W 100MCG/ML 20ML SYR ONE (08:28)
[2021-11-04] MEDS ORDERED: CLOPIDOGREL BISULFATE 300 MG TAB ONE (10:14)
--- NOTE | 2021-11-04 11:21 | Post Anesthesia Assessment ---
Date of Service November 04, 2021 Post Sedation Assessment Vital Signs Temp Pulse Resp BP Pulse Ox O2 Del Method 11/04/21 11:00 59 L 16 152/95 H 95 Room Air 11/04/21 10:45 55 L 16 152/80 H 98 Room Air 11/04/21 10:30 51 L 16 135/63 98 Room Air 11/04/21 10:17 51 L 16 118/72 98 Room Air 11/04/21 07:11 98.1 F Recovery Score Activity: Moves 4 extremities Respiration: Deep Breath/Cough Circulation: +/-20% PreAnes Value Consciousness: Fully Awake Oxygen Saturation: > 92% On Room Air Post Anesthesia Score: 10 Discharge Sedation Level of Care: Fast Track Phase II Post Sedation Plan On clinical assessment, the patient appears to have tolerated the sedation without complications. Patient is recovering as anticipated. Patient will continue to be monitored by nursing and may be discharged when sedation discharge criteria are met per below protocol. Upon Completions of procedure up to 15 minutes continue every 5 minute vital signs and the P.A.R. score; then discharge to a Phase I or Fast Track to Phase II per the following guidelines: * Discharge Patient to appropriate Phase II area if PAR is 8 or greater or return to pre- procedure baseline. The post - procedure orders will be as directed. * If PAR score is less than 8 or not return to pre-procedure baseline then patient will follow Phase I monitoring till PAR is reached for Phase II. The Phase I may be done in procedure room or may call to secure a Phase I area. * If naloxone or flumazenil are used for reversal, hold in Phase I for continued monitoring from when last reversal dose was given for a minimum of 60 minutes or longer pending the nurse and/or physician discretion of patient condition before discharge to Phase II. Please call the Sedation Physician to re-evaluate and complete post-note for discharge to Phase II area. Do NOT discharge from procedure sedation or Phase 1 until post- sedation evaluation note is complete by procedure /sedation MD Sedation Discharge Instructions to be given to the patient at discharge to home.
[2021-11-04] MEDS ORDERED: ACETAMINOPHEN 325 MG TAB PO PRN (11:25)
[2021-11-04] MEDS ORDERED: ONDANSETRON INJ 2 MG/ML 2 ML VIAL IV PRN (11:25)
[2021-11-04] MEDS ORDERED: NITROGLYCERIN SL 0.4 MG/TAB TAB SL PRN (11:28)
[2021-11-04] MEDS ORDERED: SODIUM CHLORIDE 0.9% 1000ML 1,000 ML IV SCH (11:30)
--- NOTE | 2021-11-04 12:19 | Cardiac Catheterization ---
[facility] Data: Reversal Print Inspector Cardiac Status Clinical evaluation leading to the procedure CAD Presenation: Unstable angina Diagnostic Physicians Name: Floyd Obando MD Closure Device Recommendations: PCI without planned CABG Cardiac Cath Procedure Full Procedure Date November 04, 2021 Pre-Procedure Diagnosis Pre-Procedure Diagnosis: Angina AUC Score AUC Score: 7 Post-Procedure Diagnosis Post-Procedure Diagnosis: Severe CAD, Successful PCI and Normal Intracardiac Pressures Procedure(s) Performed Procedure(s) Performed: Coronary Angiography, Left Heart Cath, Drug Eluting Stent, Ultrasound Guided Vascular Access, Bypass Graft Angiography and Femoral Artery Angiography Improvement Manager Floyd Obando MD Beater Room Supervisor(s) Showers Estimated Blood Loss Estimated Blood Loss: 20 Medication(s) Medication(s): Clopidogrel, Fentanyl, Heparin, Lidocaine 1%, Nicardipine, Nitroglycerin and Versed Summary of Findings Indication: Refractory angina Access: 6Fr left radial artery, 6 Fr right INTELLIGENCE ANALYST under ultrasound guidance Catheters: JR4, JR4, MPA, RONIT, AL-1, pigtail. MPA guide Findings: LM -medium caliber, 50% proximal LAD -medium caliber, 100% proximal occlusion at takeoff of small D1 [id number]% occluded proximally Circumflex -medium caliber, diffuse disease 50% proximal, 50% mid. OM 2 with competitive flow. RCA -dominant, calcified, large caliber, ectatic proximally 30% mid segment disease, 40 to 50% distal disease. Ostial RPDA occluded. PAV gives off 2 PLB's. Distal PLB with competitive flow. THOMPSON to LADwidely patent. Small distal vessel without significant disease. SVG to Ramus, OM240 to 50% ostial stenosis, remainder of graft widely patent. OM graft retrofills into mid circumflex SVG to PDA, RPDA60 to 70% stenosis proximally. Distal graft stent into PDA widely patent. Y graft to PLB patent. LVEDP - 20 -- PCI -- Antithrombotic therapy: Heparin, clopidogrel Procedure: SVG to PDA cannulated with MPA guide Pre-procedure flow TAO 2 IC vasodilators administered Filter wire passed across lesion into distal vessel Filter wire deployed in mid graft Proximal graft stented with 3.5 x 30 mm Kartik TRINO Stent post-dilated with 4.0 noncompliant balloon IC vasodilators administered Post procedure TAO 3 flow, stent well expanded with minimal residual stenosis and no apparent cardiac complications. Arterial Closure: Angioseal, TR band Summary: 1. Severe multivessel coronary artery disease - 100% proximal LAD occlusion - 100% ramus - 40-50% distal RCA. 100% ostial R-PDA - 50% proximal, mid circumflex 2. THOMPSON-LAD, SVG-Ramus/OM2 widely patent 3. SVG-PDA/PLB - 60-70% proximal, distal stent widely patent. 4. Successful PCI of proximal SVG-PDA/PLB with single TRINO (3.5 x 30 mm Kartik; post-dilated with 4.0 NC). Recommendations: To PCU for continued monitoring Loaded with clopidogrel 300mg in salvage laborer Continue dual-antiplatelet therapy indefinitely Continue statin, and ASCVD risk factor modification Consult cardiac Rehab Hemodynamics Rest Ao:: 103//81 Final Ao: 98//78 LV: 122/18 Recommendations Recommendations: PCI without planned CABG Specimens Specimens: None Radiation Exposure (mGy) 1685 Contrast (mls) 90 Anesthesia moderate 5422-2704 Procedural Complication(s) None Disposition PCU I attest to the content of the Intraoperative Record and any orders documented therein. Any exceptions are noted below. MNP Card Cath Procedure Codes Cardiac Catheterization Procedure 1: Cardiovascular Cath Procedures: 15713 Coronaries & LHC (+/-LV) & Grafts/IM (arterial & venous) Therapeutic Services & Ancillary Proc Procedure 1: Cardiovascular Tx and Anc Procedures: 68297 Ultrasonic Guidance Vascular Access Moderate Sedation Procedure 1: Sedation/Anesthesia: 70162 Mod Sedation by the same physician;Init15 Min Child Age 5 & Up Procedure 2: Sedation/Anesthesia: 81325 Mod Sedation by the same physician; Ea [id number] Minutes Stenting Procedure 1: Cardiovascular Stent Procedures: 04664 Perc tranluminal revascularization of or throughout CABG PG Care Time/CCT Total # of Minutes Spent Total Time Spent with Patient: Total time spent is greater than 50% in coordination of care (as documented) at patient's floor/unit and/or counseling patient:
[2021-11-04] MEDS: RANOLAZINE 500 MG ER TAB PO SCH (20:47)
[2021-11-05 05:28] LABS: BUN Creatinine Ratio 18.1 (10-20); Calcium 8.5 mg/dl (8.5-10.1); Creatinine Clr Calc Pharmacy 82.6 ml/min; Est GFR (African American) 80.7 ml/min; Est GFR (Non-African American) 69.6 ml/min; Potassium 3.9 mmol/L (3.5-5.1)
[2021-11-05 05:51] LABS: Platelet Estimate Decreased (Normal)
[2021-11-05 05:52] LABS: Hematocrit (blood only) 40.4 % (40.1-51.0); Hemoglobin 13.8 g/dl (14.0-18.0); Mean Corpuscular Hgb Conc 34.2 g/dL (32.0-36.0); Mean Corpuscular Volume 90.8 fL (80.0-100.0); Mean Platelet Volume 9.4 fL (9.4-12.4); Platelet Count 127 K/uL (130-400); RDW Coefficient of Variation 13.2 % (11.5-14.5); RDW Standard Deviation 43.8 fL (36.4-46.3); Red Blood Count 4.45 M/uL (4.63-6.08); White Blood Count 8.36 K/ul (4.8-10.8)
--- NOTE | 2021-11-05 06:15 | Electrocardiogram Report ---
Test Reason : Blood Pressure : / mmHG Vent. Rate : 068 BPM Atrial Rate : 068 BPM P-R Int : 162 ms QRS Dur : 078 ms QT Int : 420 ms P-R-T Axes : 049 -28 035 degrees QTc Int : 446 ms Normal sinus rhythm Inferior infarct (cited on or before 14-APR-2002) Abnormal ECG When compared with ECG of 02-JUN-2019 11:50, No significant change was found Confirmed by Daniel Garay ([id number]) on 11/05/2021 6:15:08 AM Referred By: Jesica Irby Confirmed By:Daniel Garay
--- NOTE | 2021-11-05 06:21 | Electrocardiogram Report ---
Test Reason : Blood Pressure : / mmHG Vent. Rate : 050 BPM Atrial Rate : 050 BPM P-R Int : 148 ms QRS Dur : 084 ms QT Int : 432 ms P-R-T Axes : 056 -21 049 degrees QTc Int : 393 ms Sinus bradycardia with sinus arrhythmia Inferior-posterior infarct (cited on or before 14-APR-2002) Abnormal ECG When compared with ECG of 04-NOV-2021 11:12, QT has shortened Confirmed by Daniel Garay ([id number]) on 11/05/2021 6:21:24 AM Referred By: Jesica Irby Confirmed By:Daniel Garay
[2021-11-05] MEDS ORDERED: LEVOTHYROXINE SODIUM 75 MCG TABLET PO SCH (06:30)
[2021-11-05] MEDS: RANOLAZINE 500 MG ER TAB PO SCH (08:27)
[2021-11-05] MEDS ORDERED: PANTOprazole 40 MG TAB PO SCH ×2 (09:00)
[2021-11-05] MEDS ORDERED: TAMSULOSIN HCL 0.4 MG CAP PO SCH (09:00)
[2021-11-05] MEDS ORDERED: LOSARTAN POTASSIUM 25 MG TAB PO SCH (09:00)
[2021-11-05] MEDS ORDERED: CHOLECALCIFEROL 1,000 UNITS 25 MCG TAB PO SCH (09:00)
[2021-11-05] MEDS ORDERED: CLOPIDOGREL BISULFATE 75 MG TAB PO SCH (09:00)
[2021-11-05] MEDS ORDERED: ISOSORBIDE MONO EXTENDED REL 60 MG TABCR PO SCH (09:00)
[2021-11-05] MEDS ORDERED: METOPROLOL SUCC 25MG EXT REL TAB PO SCH (09:00)
[2021-11-05] MEDS ORDERED: ASPIRIN 81 MG ECTAB PO SCH (09:00)
[2021-11-05] MEDS ORDERED: ATORVASTATIN 40 MG TAB PO SCH (09:00)
--- NOTE | 2021-11-05 13:43 | Discharge Summary ---
Date of Service November 05, 2021 Admission HPI Per Admitting Provider Mr. Carlisle is a very pleasant 76-year-old man with a history of coronary artery disease post 5 vessel CABG in 2005 ([facility], THOMPSON to LAD, sequential SVG to diagonal and OM, sequential SVG to PDA and PLB) and prior PCI to SVG to PDA 05/2021. Presented for [facility] in the setting of progressive exertional dyspnea concerning for angina. Symptoms refractory to maximal antianginal therapy. Discharge Data Procedures Performed Operation Date: 11/04/21 08:00 Actual Procedures s Cineradiography w/Routine Exam - Alec Obando MD s Cath, Left w/Cors Vent Grafts - Alec Obando MD p Drug Eluting Stent Bypass GR - Alec Obando MD s Ultrasound Vascular Access - Alec Obando MD s Placement Art Occlusive Device - Alec Obando MD Hospital Course (1) CAD (coronary artery disease): Plan Underwent diagnostic cardiac cath via left radial artery and right GUARDIAN AD LITEM. Findings: 1. Severe multivessel coronary artery disease - 100% proximal LAD occlusion - 100% ramus - 40-50% distal RCA. 100% ostial R-PDA - 50% proximal, mid circumflex 2. THOMPSON-LAD, SVG-Ramus/OM2 widely patent 3. SVG-PDA/PLB - 60-70% proximal, distal stent widely patent. 4. Successful PCI of proximal SVG-PDA/PLB with single TRINO (3.5 x 30 mm Kartik; post-dilated with 4.0 NC). Post procedure patient admitted for observation. He had no additional chest pain. Telemetry was unremarkable. Post procedure labs stable. On hospital day 2 no apparent access site complications. Feeling well up walking halls. Discharge to home on prior DAPT with aspirin, clopidogrel. No changes made to home meds. Follow-up in 2 weeks. Discuss cardiac rehab at that time. Discharge Instructions Home Medications antiarthritic combination no.2 900 mg tablet (glucosamine-chondroitin) 900 mg PO QAM 03/10/19 [History Confirmed 11/04/21] aspirin 81 mg tablet,delayed release (Adult Aspirin Regimen) 81 mg PO HS 03/10/19 [History Confirmed 11/04/21] levothyroxine 75 mcg tablet (Synthroid) 75 mcg PO DAILYBB 03/10/19 [History Confirmed 11/04/21] losartan 25 mg tablet (Cozaar) 25 mg PO QAM 03/10/19 [History Confirmed 11/04/21] clopidogrel 75 mg tablet 75 mg PO QAM #30 tabs 06/03/19 [Rx Confirmed 11/04/21] tamsulosin 0.4 mg capsule (Flomax) 0.4 mg PO DAILY 12/08/19 [History Confirmed 11/04/21] Saccharomyces boulardii 250 mg capsule (Daily Probiotic (S. boulardii)) 250 mg PO DAILY 06/14/20 [History Confirmed 11/04/21] isosorbide mononitrate 60 mg tablet,extended release 24 hr 60 mg PO DAILY #90 tabs 03/11/21 [Rx Confirmed 11/04/21] ranolazine 1,000 mg tablet,extended release,12 hr 1,000 mg PO BID #180 tabs 03/11/21 [Rx Confirmed 11/04/21] cholecalciferol (vitamin D3) 25 mcg (1,000 unit) capsule 25 mcg PO DAILY 05/02/21 [History Confirmed 11/04/21] uygai-bc-7-tly-vkj-phqotky-ast [MegaRed [place]-3 Krill Oil] 1 cap PO DAILY 05/02/21 [History Confirmed 11/04/21] jjirykvnbdol-emhkesqn-bvhtag [Centrum Silver] 1 tab PO DAILY 05/02/21 [History Confirmed 11/04/21] atorvastatin 40 mg tablet 80 mg PO DAILY 09/10/21 [History Confirmed 11/04/21] pantoprazole 40 mg tablet,delayed release 20 mg PO QAM 09/10/21 [History Confirmed 11/04/21] metoprolol succinate 25 mg tablet,extended release 24 hr 25 mg PO DAILY #30 tabs 10/22/21 [Rx Confirmed 11/04/21] nitroglycerin 0.4 mg sublingual tablet (Nitrostat) 0.4 mg sublingual UD PRN chest pain #1 btl 11/05/21 [Rx] Coding Level of Care Code 54642 OBS Care - Discharge Diagnoses CAD (coronary artery disease) I25.10 Associated angina: angina presence unspecified Coronary Disease-Associated Artery/Lesion type: unspecified vessel or lesion type [place] vs. transplanted heart: unspecified whether [place] or transplanted heart
== END 2021-11-05 12:50 | disposition home or self-care (01) ==
LOC: 1E 06:58 → CC 06:58

== ENCOUNTER 2022-04-07 15:06 | Observation (INO) ==
[2022-04-07] MEDS ORDERED: ASPIRIN CHEW 324 MG PO STA (15:39)
[2022-04-07] MEDS ORDERED: NITROGLYCERIN SL 0.4 MG/TAB TAB SL STA (15:39)
[2022-04-07] MEDS: SODIUM CHLORIDE 0.9% 500 ML IV SCH ×2 (15:47→19:28)
[2022-04-07 15:58] LABS: Basophils # (auto) 0.05 K/uL (0-0.2); Basophils % (auto) 0.6 %; Eosinophils # (auto) 0.12 K/uL (0-0.50); Eosinophils % (auto) 1.5 %; Hematocrit (blood only) 40.9 % (42.0-52.0); Immature Granulocytes # (auto) 0.03 K/uL (0.01-0.20); Immature Granulocytes % (auto) 0.4 %; Lymphocytes % (auto) 24.6 %; Mean Corpuscular Hemoglobin 31.1 pg (25.0-34.0); Mean Corpuscular Hgb Conc 34.2 g/dL (32.0-36.0); Mean Corpuscular Volume 90.9 fL (80.0-100.0); Mean Platelet Volume 9.5 fL (9.4-12.4); Monocytes # (auto) 0.45 K/uL (0.11-0.59); Monocytes % (auto) 5.5 %; Neutrophils # (auto) 5.48 K/uL (1.40-6.50); Neutrophils % (auto) 67.4 %; Platelet Count 125 K/uL (130-400); RDW Coefficient of Variation 13.4 % (11.5-14.5); RDW Standard Deviation 44.5 fL (36.4-46.3); White Blood Count 8.13 K/ul (4.8-10.8)
[2022-04-07 16:16] LABS: Alanine Aminotransferase 13 U/L (7-52); Albumin Globulin Ratio 1.8 (0.9-2); Albumin Level 3.6 gm/dl (3.4-5.0); Alkaline Phosphatase 52 U/L (34-104); Anion Gap 3 (3-11); Aspartate Aminotransferase 13 U/L (13-39); Bilirubin,Total 0.8 mg/dl (0.2-1.0); Blood Urea Nitrogen 16 mg/dl (6-23); Calcium 8.8 mg/dl (8.5-10.1); Carbon Dioxide 30 mmol/L (21-32); Chloride 107 mmol/L (98-107); Est GFR (African American) 78.8 ml/min; Glucose 109 mg/dl (70-99(Fasting)); Potassium 4.1 mmol/L (3.5-5.1); Sodium 140 mmol/L (136-145); Total Protein 5.6 gm/dl (6.0-8.3)
--- NOTE | 2022-04-07 16:24 | Electrocardiogram Report ---
Test Reason : Blood Pressure : / mmHG Vent. Rate : 066 BPM Atrial Rate : 066 BPM P-R Int : 150 ms QRS Dur : 076 ms QT Int : 412 ms P-R-T Axes : 063 -05 060 degrees QTc Int : 431 ms Normal sinus rhythm Low voltage QRS Borderline ECG When compared with ECG of 07-APR-2022 14:46, (unconfirmed) No significant change was found Confirmed by Edmund Land ([id number]) on 04/07/2022 4:24:25 PM Referred By: Confirmed By:Edmund Land
[2022-04-07 16:29] LABS: INR 1.1 (0.9-1.1); Partial Thromboplastin Ratio 0.9; Partial Thromboplastin Time 26.1 Seconds (21.0-31.0); Prothrombin Time 11.4 Seconds (9.0-12.0)
--- NOTE | 2022-04-07 16:49 | XRay Report ---
XR chest 2V PA/lateral CLINICAL HISTORY: Chest pain, nonspecific COMPARISON STUDY: Chest radiograph January 14, 2022. FINDINGS: Mediastinal surgical clips are noted. There is no pneumothorax or pleural effusion. No cons olidation or evidence for pulmonary edema. The appearance of the chest is unchanged. IMPRESSION: No acute cardiopulmonary findings. No change in appearance of the chest. ACT 112: Negative or not required by law. Electronically signed by: Nando Sanchez M.D. 04/07/2022 4:47 PM
--- NOTE | 2022-04-07 18:11 | History & Physical Report ---
Date of Service April 07, 2022 Assessment & Plan (1) Chest pain: Plan: This is 76-year-old gentleman with a history of coronary artery disease status post CABG in 2005 and TRINO in the distal SVG in 10/2021, hypertension dyslipidemia GERD who presented to [facility] for evaluation of chest pain. Chest Pain Patient reported presyncopal related symptoms while at cardiac rehab related to exertion with subsequent development of substernal chest pain relieved by nitroglycerin Work-up as follows: ECG at cardiac rehab and upon arrival without any acute changes compared to prior Initial troponin at 10, repeat pending Chest x-ray without any acute processes, no evidence of lower extremity edema Status post CABG in 2005 with TRINO placement in SVG in 10/2021 Presyncopal symptoms as well as substernal chest pain brought upon by exertion are concerning for a stable angina type picture. Noted that patient also has a history of reflux related chest pain, but he describes this is different -- though still on the differential. Lower suspicion for other vascular or VTE related process. Admit to a monitored bed EKG, nitroglycerin as needed Trend troponins x2 Continue PPI Appreciate cardiology consultation while here given complex coronary history and ?Need for repeat nuclear study versus catheterization while here Continue metoprolol, now seen, isosorbide, atorvastatin, aspirin, Plavix (2) CAD (coronary artery disease): Plan: CAD s/p CABG (2005), TRINO placement in SVG in 10/2021 - Follows with Dr. Oabndo in Cardiology - Continue DAPT with ASA and Plavix - Continue atorvastatin 80mg daily - Continue metoprolol, ranalozine, isosorbide - TTE (05/2021): LVEF 65%, moderate VH, RV mildly dilated, DD 1 normal normal estimated PASP (3) Hypothyroidism: Plan: Hypothyroidism - Continue levothyroxine (4) HTN (hypertension): Plan: HTN - Continue metoprolol, isosorbide, losartan (5) HLD (hyperlipidemia): Plan: HLD - Continue statin as above (6) GERD (gastroesophageal reflux disease): Plan: GERD - Continue pantoprazole Plan Code: Full Diet: HH PPX: SCDs Dispo: MST History of Present Illness Primary Care Provider: Minnie Fernandes MD This is 76-year-old gentleman with a history of coronary artery disease status post CABG in 2005 and TRINO in the distal SVG in 10/2021, hypertension dyslipidemia GERD who presented to [facility] for evaluation of chest pain. Patient says that he was at cardiac rehab today working on the [employer] and overall doing quite well. He has not had any problems in cardiac rehab up until this time. He said that when he switched over to the treadmill he had a sensation that he was "about to pass out ", and also describes that his breathing was maybe a little more labored compared to prior. However, he did not have chest pain at this time. He said that it went away the more he walked, but then he developed symptoms again so he stopped the treadmill. The staff promptly got him over to a chair and did an EKG, which did not demonstrate acute changes. Shortly thereafter, he did develop a pressure- like chest pain described as around the area of the apex that radiated up towards his neck. He said that he was given nitroglycerin, and within 15 to 20 minutes, the pain did start getting better. This was significant to him because in the past, he has not had any relief from nitroglycerin. Cardiology notes reviewed, patient did have a cardiac catheterization in October 2021 which demonstrated "Chronic occluded proximal LAD, ramus, ostial RPDA. Patent THOMPSON to LAD, SVG to ramus/OM 2. Patent stent SVG to PDA. 70% proximal SVG to PDA/PLB. Single TRINO 2.5 x 30 mm Kartik; postdilated with 4.0 NC to SVG to PDA". His last echo in May 2021 demonstrated an EF of 65% with moderate LVH. Other than the event described above, patient describes that the only chest pain that he really experiences is with regards to his reflux. He is describes this pain is very different. He describes being otherwise in his normal health up through this time. No fevers, chills, sweats. No nausea, vomiting. In the ED, he was found to have normal vital signs. Admission labs demonstrated no appreciable metabolic or hematologic abnormalities. Initial troponin at 10. COVID-negative. Chest x-ray did not demonstrate any acute findings. ECG without any acute changes compared to prior. They received sublingual nitro, ASA 324, normal saline in the ED. Allergies Allergy/AdvReac Type Severity Reaction Status Date / Time zolpidem [From Ambien] AdvReac Intermediate Confusion Verified 04/07/22 18:02 Home Medications Medication Instructions Recorded Confirmed Type antiarthritic combination no.2 900 900 mg PO QAM 03/10/19 04/07/22 History mg tablet (glucosamine-chondroitin) aspirin 81 mg tablet,delayed 81 mg PO HS 03/10/19 04/07/22 History release (Adult Aspirin Regimen) levothyroxine 75 mcg tablet 75 mcg PO DAILYBB 03/10/19 04/07/22 History (Synthroid) losartan 25 mg tablet (Cozaar) 25 mg PO QAM 03/10/19 04/07/22 History clopidogrel 75 mg tablet 75 mg PO QAM #30 tabs 06/03/19 04/07/22 Rx Saccharomyces boulardii 250 mg 250 mg PO DAILY 06/14/20 04/07/22 History capsule (Daily Probiotic (S. boulardii)) cholecalciferol (vitamin D3) 25 25 mcg PO DAILY 05/02/21 04/07/22 History mcg (1,000 unit) capsule pantoprazole 40 mg tablet,delayed 20 mg PO QAM 09/10/21 04/07/22 History release nitroglycerin 0.4 mg sublingual 0.4 mg sublingual UD PRN chest 11/05/21 04/07/22 Rx tablet (Nitrostat) pain #1 btl tamsulosin 0.4 mg capsule (Flomax) 0.4 mg PO DAILY #90 caps 11/28/21 04/07/22 Rx krill oil 1,000 mg-om3 130 mg-dha 1 cap PO DAILY 01/14/22 04/07/22 History 40 mg-epa 80 au-zv7-obu-astax cap (Krill Oil ([place] 3 and 6)) sdntxqsjcfev-kepaklwm-dezngl tablet 1 tab PO DAILY 01/14/22 04/07/22 History isosorbide mononitrate 60 mg 60 mg PO DAILY #90 tabs 03/06/22 04/07/22 Rx tablet,extended release 24 hr metoprolol succinate 25 mg 25 mg PO DAILY 03/06/22 04/07/22 History tablet,extended release 24 hr ranolazine 1,000 mg 1,000 mg PO BID #180 tabs 03/06/22 04/07/22 Rx tablet,extended release,12 hr atorvastatin 80 mg tablet 80 mg PO DAILY 04/07/22 04/07/22 History Past Med/Surg History Medical History CAD (coronary artery disease) GERD (gastroesophageal reflux disease) HLD (hyperlipidemia) HTN (hypertension) Hypothyroidism Obesity Surgical History History of cardiac cath History of heart artery stent S/P CABG x 5 Family History Father Coronary heart disease S/p CABG in his 60's. Mother Coronary heart disease at age 74 due to cardiac arrest. Social History Smoking Status: Never smoker Second Hand Exposure: No; Hx Alcohol Use: No Hx Substance Use: No Preferred Language: Yi Communication Ability: Effective Director Medicaid Required: No Beliefs That Will Affect Care: None marital status: Current Living Situation: Spouse current occupation: Maintenance for [employer] Other Information That Helps Us Care for You: No Feels Safe at Home: Yes Assistive Devices: Glasses and Hearing Aid - Bilateral Review of Systems Review of Systems: as per HPI Physical Exam Physical Exam: General: Well appearing 76-year old cyndee who is alert, oriented, and appears in no acute distress. HEENT: NCAT. - Eyes - Sclera are white, anicteric, and without injection. - Mouth - MMM - Neck - supple, no appreciable JVD Cardiac: Normal rate and regular rhythm; S1 and S2 present with no murmurs, rubs, or gallops. Pulmonary: Good respiratory effort with symmetric expansion of the chest. No use of accessory muscles. Lungs were clear to auscultation bilaterally with no crackles or wheezes. Abdominal: Normoactive bowel sounds. Abdomen was soft, nondistended, and non- tender to palpation. Extremities: Upper and lower extremities are warm and well perfused. No peripheral edema in the lower extremities bilaterally Psych: Well-developed, well-nourished, appropriately dressed for occasion. Behavior is cooperative and appropriate. Affect is WNL. Insight is appropriate. Results & Data Results & Data ([facility]) Vital Signs (Past 12 Hours) Vital Signs Temp Pulse Resp BP Pulse Ox O2 Del Method 01/30/23 16:50 81 20 04/07/22 16:45 132/71 04/07/22 16:45 65 17 98 04/07/22 16:40 66 22 98 04/07/22 16:30 65 21 99 04/07/22 16:30 142/71 H 04/07/22 16:23 99 04/07/22 16:23 133/75 04/07/22 15:51 70 19 97 04/07/22 15:51 148/68 H 04/07/22 15:50 69 22 98 04/07/22 15:40 67 15 99 04/07/22 15:30 69 24 98 04/07/22 15:30 160/76 H 04/07/22 15:29 135/88 04/07/22 15:51 70 20 148/68 H 98 Room Air 04/07/22 15:11 36.8 C 65 14 149/83 H 98 Supervising Physician Co-Signing Physician Notes I personally saw and examined the patient. I verified all ware points and agree with resident physician Dr Kendell Max, with the following exceptions and/or additions: 76-year-old male presents with exercise-induced shortness of breath, fatigue, chest pain and presyncope during cardiac rehab. Reports no radiation of his chest pain like his previous angina.No current chest pain or symptoms at rest O/E A&Ox3, HS1+2, no murmurs, Chest CTAB, Abdo SNT A/P Chest pain - r/o [place] with serial troponins, repeat TTE, observe on telemetry overnight, consult cardiology for consideration of cardiac cath if felt there may be a lesions from previous catheterization that may be causing his symptoms. Continue dual antiplatelet therapy, Imdur, Ranexa, metoprolol succinate, losartan, atorvastatin. Resident Activity Tracking Resident Involvement: Resident Care Provided Care Provided: Adult Hospital Medicine (1) CAD (coronary artery disease) Associated angina: angina presence unspecified Coronary Disease-Associated Artery/Lesion type: unspecified vessel or lesion type [place] vs. transplanted heart: unspecified whether [place] or transplanted heart Qualified Code(s): I25.10 - Atherosclerotic heart disease of [place] coronary artery without angina pectoris (2) HTN (hypertension) Hypertension type: unspecified Qualified Code(s): I10 - Essential (primary) hypertension
[2022-04-07] MEDS ORDERED: NITROGLYCERIN SL 0.4 MG/TAB TAB SL PRN (20:40)
[2022-04-07] MEDS ORDERED: ASPIRIN 81 MG ECTAB PO SCH (21:00)
--- NOTE | 2022-04-07 21:36 | Emergency Department Note ---
History of Present Illness General Chief Complaint: Chest Pain Stated Complaint: CHEST PAIN AND WEAKNESS, CHILLS Time Seen by Provider: 04/07/22 15:30 History of Present Illness Provider Complaint: chest pain Time: 15:00 Duration: improved Onset: during exertion (Occurred while doing treadmill at cardiac rehab) Pain Location: substernal and left chest Pain Radiation: none Current Pain Intensity: 3 Quality: + heaviness Relieved By: + nitroglycerin Exacerbated By: + exertion Context: no recent illness, no recent surgery, no recent immobilization, no recent travel, no trauma/injury, no new medications or no history of DVT/PE Associated symptoms: + dyspnea; no nausea, no vomiting, no diaphoresis, no syncope, no palpitations or no cough Treatments prior to arrival: nitroglycerin Home Medications Medication Instructions Recorded Confirmed Type antiarthritic combination no.2 900 900 mg PO QAM 03/10/19 04/07/22 History mg tablet (glucosamine-chondroitin) aspirin 81 mg tablet,delayed 81 mg PO HS 03/10/19 04/07/22 History release (Adult Aspirin Regimen) levothyroxine 75 mcg tablet 75 mcg PO DAILYBB 03/10/19 04/07/22 History (Synthroid) losartan 25 mg tablet (Cozaar) 25 mg PO QAM 03/10/19 04/07/22 History clopidogrel 75 mg tablet 75 mg PO QAM #30 tabs 06/03/19 04/07/22 Rx Saccharomyces boulardii 250 mg 250 mg PO DAILY 06/14/20 04/07/22 History capsule (Daily Probiotic (S. boulardii)) cholecalciferol (vitamin D3) 25 25 mcg PO DAILY 05/02/21 04/07/22 History mcg (1,000 unit) capsule pantoprazole 40 mg tablet,delayed 20 mg PO QAM 09/10/21 04/07/22 History release nitroglycerin 0.4 mg sublingual 0.4 mg sublingual UD PRN chest 11/05/21 04/07/22 Rx tablet (Nitrostat) pain #1 btl tamsulosin 0.4 mg capsule (Flomax) 0.4 mg PO DAILY #90 caps 11/28/21 04/07/22 Rx krill oil 1,000 mg-om3 130 mg-dha 1 cap PO DAILY 01/14/22 04/07/22 History 40 mg-epa 80 oj-pi5-yun-astax cap (Krill Oil ([place] 3 and 6)) vmkclzgpcaoi-zixxwzwo-uamaup tablet 1 tab PO DAILY 01/14/22 04/07/22 History isosorbide mononitrate 60 mg 60 mg PO DAILY #90 tabs 03/06/22 04/07/22 Rx tablet,extended release 24 hr metoprolol succinate 25 mg 25 mg PO DAILY 03/06/22 04/07/22 History tablet,extended release 24 hr ranolazine 1,000 mg 1,000 mg PO BID #180 tabs 03/06/22 04/07/22 Rx tablet,extended release,12 hr atorvastatin 80 mg tablet 80 mg PO DAILY 04/07/22 04/07/22 History Allergies Allergy/AdvReac Type Severity Reaction Status Date / Time zolpidem [From Ambien] AdvReac Intermediate Confusion Verified 04/07/22 18:02 Past Med/Surg History Medical History CAD (coronary artery disease) GERD (gastroesophageal reflux disease) HLD (hyperlipidemia) HTN (hypertension) Hypothyroidism Obesity Surgical History History of cardiac cath History of heart artery stent S/P CABG x 5 Family History Father Coronary heart disease S/p CABG in his 60's. Mother Coronary heart disease at age 74 due to cardiac arrest. Social History Smoking Status: Never smoker Second Hand Exposure: No; Hx Alcohol Use: No Hx Substance Use: No Preferred Language: French Communication Ability: Effective Professor Of Anthropology Required: No Beliefs That Will Affect Care: None marital status: Current Living Situation: Spouse current occupation: Maintenance for [employer] Feels Safe at Home: Yes Assistive Devices: None Physical Exam Vital Signs Vital Signs - 24 hr 04/07/22 15:11 04/07/22 15:51 04/07/22 15:29 Temperature 36.8 C Temperature Source Temporal Artery Scan Pulse Rate 65 70 Pulse Rate from SpO2 Sensor Respiratory Rate 14 20 Blood Pressure 149/83 H 148/68 H 135/88 Blood Pressure Mean 105 94 103 Pulse Oximetry 98 98 Oxygen Delivery Method Room Air Sepsis Recent Fever Within 48 Hours No Sepsis New/Unexplained Change in Mental Status No Sepsis Action Taken by Nursing No Action Required 04/07/22 15:30 04/07/22 15:30 04/07/22 15:40 Temperature Temperature Source Pulse Rate 69 67 Pulse Rate from SpO2 Sensor 71 67 Respiratory Rate 24 15 Blood Pressure 160/76 H Blood Pressure Mean 104 Pulse Oximetry 98 99 Oxygen Delivery Method Sepsis Recent Fever Within 48 Hours Sepsis New/Unexplained Change in Mental Status Sepsis Action Taken by Nursing 04/07/22 15:50 04/07/22 15:51 04/07/22 15:51 Temperature Temperature Source Pulse Rate 69 70 Pulse Rate from SpO2 Sensor 70 70 Respiratory Rate 22 19 Blood Pressure 148/68 H Blood Pressure Mean 94 Pulse Oximetry 98 97 Oxygen Delivery Method Sepsis Recent Fever Within 48 Hours Sepsis New/Unexplained Change in Mental Status Sepsis Action Taken by Nursing 04/07/22 16:23 04/07/22 16:23 04/07/22 16:30 Temperature Temperature Source Pulse Rate Pulse Rate from SpO2 Sensor 67 Respiratory Rate Blood Pressure 133/75 142/71 H Blood Pressure Mean 94 94 Pulse Oximetry 99 Oxygen Delivery Method Sepsis Recent Fever Within 48 Hours Sepsis New/Unexplained Change in Mental Status Sepsis Action Taken by Nursing 04/07/22 16:30 04/07/22 16:40 04/07/22 16:45 Temperature Temperature Source Pulse Rate 65 66 65 Pulse Rate from SpO2 Sensor 65 65 64 Respiratory Rate 21 22 17 Blood Pressure Blood Pressure Mean Pulse Oximetry 99 98 98 Oxygen Delivery Method Sepsis Recent Fever Within 48 Hours Sepsis New/Unexplained Change in Mental Status Sepsis Action Taken by Nursing 04/07/22 16:45 04/07/22 16:50 04/07/22 17:10 Temperature Temperature Source Pulse Rate 81 68 Pulse Rate from SpO2 Sensor 66 Respiratory Rate 20 25 H Blood Pressure 132/71 Blood Pressure Mean 91 Pulse Oximetry 99 Oxygen Delivery Method Sepsis Recent Fever Within 48 Hours Sepsis New/Unexplained Change in Mental Status Sepsis Action Taken by Nursing 04/07/22 17:20 04/07/22 17:30 04/07/22 17:40 Temperature Temperature Source Pulse Rate 64 63 69 Pulse Rate from SpO2 Sensor 64 64 68 Respiratory Rate 17 18 19 Blood Pressure Blood Pressure Mean Pulse Oximetry 99 99 98 Oxygen Delivery Method Sepsis Recent Fever Within 48 Hours Sepsis New/Unexplained Change in Mental Status Sepsis Action Taken by Nursing 04/07/22 17:50 04/07/22 18:00 Temperature Temperature Source Pulse Rate 62 64 Pulse Rate from SpO2 Sensor 62 65 Respiratory Rate 17 22 Blood Pressure 124/70 Blood Pressure Mean 88 Pulse Oximetry 97 97 Oxygen Delivery Method Room Air Sepsis Recent Fever Within 48 Hours Sepsis New/Unexplained Change in Mental Status Sepsis Action Taken by Nursing Physical Exam GENERAL: He is oriented to person, place, and time. He appears well-developed and well-nourished. HENT: Exam performed. - Head: Normocephalic and atraumatic. EYES: Conjunctivae and EOM are normal. Right eye exhibits no discharge. Left eye exhibits no discharge. No scleral icterus. NECK: Normal range of motion. Neck supple. No JVD present. CV: Normal rate, regular rhythm, normal heart sounds and intact distal pulses. There is no peripheral edema. Palpable radial pulses bue. PULM/CHEST: Effort normal and breath sounds normal. No respiratory distress. No stridor. He has no wheezes. He has no rales. ABD: The abdomen is soft. There is no tenderness. NEURO: Motor and sensation grossly intact. SKIN: Skin is warm and dry. He is not diaphoretic. PSYCH: He has a normal mood and affect. Behavior is normal. Judgment and thought content normal. Course Course 1530: The patient was evaluated in room C5. A complete history and physical exam was performed Cardiac monitoring: An order was placed for continuous cardiac monitoring. The monitor shows a rate of 70 with sinus rhythm 1630: Patient reports his chest pain completely resolved status post 1 sublingual nitroglycerin in the emergency department. 1735: Vital signs stable. Labs and imaging within normal limits. Given the patient's symptoms that began at cardiac rehab on a treadmill and resolved with sublingual nitroglycerin patient will be admitted for chest pain rule out [facility] hospitalist team was contacted. Administered Medications Discontinued Medications Aspirin (Aspirin Chew 324 Mg) 324 mg PO NOW STA Stop: 04/07/22 15:40 Last Admin: 04/07/22 15:48 Dose: 324 mg Documented By: DEISY Sodium Chloride (Nss) 500 mls @ 125 mls/hr IV .Q4H ARGELIA Stop: 05/07/22 15:44 Last Admin: 04/07/22 19:28 Dose: 125 mls/hr Documented By: Infusion: 04/07/22 19:25 Dose: 0 mls/hr Documented By: Admin: 04/07/22 15:47 Dose: 125 mls/hr Documented By: DEISY Nitroglycerin (Nitroglycerin Sl 0.4 Mg/Tab Tab) 0.4 mg SL NOW STA Stop: 04/07/22 15:40 Last Admin: 04/07/22 15:48 Dose: 0.4 mg Documented By: DEISY Medical Decision Making Laboratory Data Attestation: I reviewed the patient's lab results. 04/07/22 15:24 04/07/22 15:24 Labs: Lab Results 04/07/22 04/07/22 04/07/22 Range/Units 15:24 15:24 15:24 WBC 8.13 (4.8-10.8) K/ul RBC 4.50 L (4.70-6.10) M/uL Hgb 14.0 (14.0-18.0) g/dl Hct 40.9 L (42.0-52.0) % MCV 90.9 (80.0-100.0) fL MCH 31.1 (25.0-34.0) pg MCHC 34.2 (32.0-36.0) g/dL RDW Std Deviation 44.5 (36.4-46.3) fL RDW Coeff of Carlos 13.4 (11.5-14.5) % Plt Count 125 L (130-400) K/uL MPV 9.5 (9.4-12.4) fL Immature Gran % (Auto) 0.4 % Neut % (Auto) 67.4 % Lymph % (Auto) 24.6 % Alpine % (Auto) 5.5 % Eos % (Auto) 1.5 % Baso % (Auto) 0.6 % Neut # (Auto) 5.48 (1.40-6.50) K/uL Lymph # (Auto) 2.00 (1.2-3.4) K/uL Alpine # (Auto) 0.45 (0.11-0.59) K/uL Eos # (Auto) 0.12 (0-0.50) K/uL Baso # (Auto) 0.05 (0-0.2) K/uL Immature Gran # (Auto) 0.03 (0.01-0.20) K/uL PT 11.4 (9.0-12.0) Seconds INR 1.1 (0.9-1.1) APTT 26.1 (21.0-31.0) Seconds PTT Ratio 0.9 Sodium 140 (136-145) mmol/L Potassium 4.1 (3.5-5.1) mmol/L Chloride 107 (98-107) mmol/L Carbon Dioxide 30 (21-32) mmol/L Anion Gap 3 (3-11) BUN 16 (6-23) mg/dl Creatinine 1.07 (0.6-1.4) mg/dl Est Cr Clr Drug Dosing Not Reportable Est GFR ( Amer) 78.8 ml/min Est GFR (Non-Af Amer) 68.0 ml/min BUN/Creatinine Ratio 15.0 (10-20) Glucose 109 H (70-99(Fasting)) mg/dl Calcium 8.8 (8.5-10.1) mg/dl Total Bilirubin 0.8 (0.2-1.0) mg/dl AST 13 (13-39) U/L ALT 13 (7-52) U/L Alkaline Phosphatase 52 (34-104) U/L Troponin I High Sens 10.0 (0-20) pg/ml Total Protein 5.6 L (6.0-8.3) gm/dl Albumin 3.6 (3.4-5.0) gm/dl Globulin 2.0 L (2.5-4.0) gm/dl Albumin/Globulin Ratio 1.8 (0.9-2) SARS-CoV-2, RNA, NAAT (NEGATIVE) 04/07/22 Range/Units 16:21 WBC (4.8-10.8) K/ul RBC (4.70-6.10) M/uL Hgb (14.0-18.0) g/dl Hct (42.0-52.0) % MCV (80.0-100.0) fL MCH (25.0-34.0) pg MCHC (32.0-36.0) g/dL RDW Std Deviation (36.4-46.3) fL RDW Coeff of Carlos (11.5-14.5) % Plt Count (130-400) K/uL MPV (9.4-12.4) fL Immature Gran % (Auto) % Neut % (Auto) % Lymph % (Auto) % Alpine % (Auto) % Eos % (Auto) % Baso % (Auto) % Neut # (Auto) (1.40-6.50) K/uL Lymph # (Auto) (1.2-3.4) K/uL Alpine # (Auto) (0.11-0.59) K/uL Eos # (Auto) (0-0.50) K/uL Baso # (Auto) (0-0.2) K/uL Immature Gran # (Auto) (0.01-0.20) K/uL PT (9.0-12.0) Seconds INR (0.9-1.1) APTT (21.0-31.0) Seconds PTT Ratio Sodium (136-145) mmol/L Potassium (3.5-5.1) mmol/L Chloride (98-107) mmol/L Carbon Dioxide (21-32) mmol/L Anion Gap (3-11) BUN (6-23) mg/dl Creatinine (0.6-1.4) mg/dl Est Cr Clr Drug Dosing Est GFR ( Amer) ml/min Est GFR (Non-Af Amer) ml/min BUN/Creatinine Ratio (10-20) Glucose (70-99(Fasting)) mg/dl Calcium (8.5-10.1) mg/dl Total Bilirubin (0.2-1.0) mg/dl AST (13-39) U/L ALT (7-52) U/L Alkaline Phosphatase (34-104) U/L Troponin I High Sens (0-20) pg/ml Total Protein (6.0-8.3) gm/dl Albumin (3.4-5.0) gm/dl Globulin (2.5-4.0) gm/dl Albumin/Globulin Ratio (0.9-2) SARS-CoV-2, RNA, NAAT NEGATIVE (NEGATIVE) Imaging Data Chest x-ray: Radiologist's impression: Chest X-Ray 04/07/22 15:16 XR chest 2V PA/lateral CLINICAL HISTORY: Chest pain, nonspecific COMPARISON STUDY: Chest radiograph January 14, 2022. FINDINGS: Mediastinal surgical clips are noted. There is no pneumothorax or pleural effusion. No consolidation or evidence for pulmonary edema. The appearance of the chest is unchanged. IMPRESSION: No acute cardiopulmonary findings. No change in appearance of the chest. ACT 112: Negative or not required by law. Electronically signed by: Nando Sanchez M.D. 04/07/2022 4:47 PM ECG Data Attestation: I personally reviewed and interpreted this ECG as follows: Additional Comments: EKG #1 at 1446: Sinus rhythm with rate of 71. [place] 152 QRS of [address] elevation or ST depression. EKG #2 at 1523: Sinus rhythm with rate of 66. OH 150 QRS [address] elevation or ST depression. MDM Narrative 1530: The patient was evaluated in room C5. A complete history and physical exam was performed Cardiac monitoring: An order was placed for continuous cardiac monitoring. The monitor shows a rate of 70 with sinus rhythm 1630: Patient reports his chest pain completely resolved status post 1 sublingual nitroglycerin in the emergency department. 1735: Vital signs stable. Labs and imaging within normal limits. Given the patient's symptoms that began at cardiac rehab on a treadmill and resolved with sublingual nitroglycerin patient will be admitted for chest pain rule out [facility] hospitalist team was contacted. Impression & Plan Chest pain Discharge Plan Visit Data Chief Complaint: Chest Pain Stated Complaint: CHEST PAIN AND WEAKNESS, CHILLS ED Provider: Surjit Mahmood Discharge Problem: Chest pain Patient Disposition: Being Evaluated by Hospitalist Discharge Instructions Interventions: ED Discharge Assessment Last Done: 04/07/22 20:39
[2022-04-07] MEDS: RANOLAZINE 500 MG ER TAB PO SCH (21:41)
[2022-04-08] MEDS ORDERED: LEVOTHYROXINE SODIUM 75 MCG TABLET PO SCH (06:30)
[2022-04-08 07:39] LABS: Basophils # (auto) 0.03 K/uL (0-0.2); Basophils % (auto) 0.4 %; Eosinophils # (auto) 0.12 K/uL (0-0.50); Eosinophils % (auto) 1.5 %; Hematocrit (blood only) 42.6 % (42.0-52.0); Hemoglobin 14.5 g/dl (14.0-18.0); Immature Granulocytes # (auto) 0.03 K/uL (0.01-0.20); Immature Granulocytes % (auto) 0.4 %; Lymphocytes % (auto) 22.2 %; Mean Corpuscular Hemoglobin 30.9 pg (25.0-34.0); Mean Corpuscular Volume 90.8 fL (80.0-100.0); Mean Platelet Volume 9.5 fL (9.4-12.4); Monocytes # (auto) 0.48 K/uL (0.11-0.59); Monocytes % (auto) 5.9 %; Neutrophils # (auto) 5.65 K/uL (1.40-6.50); Neutrophils % (auto) 69.6 %; Platelet Count 112 K/uL (130-400); RDW Coefficient of Variation 13.6 % (11.5-14.5); RDW Standard Deviation 45.5 fL (36.4-46.3); Red Blood Count 4.69 M/uL (4.70-6.10); White Blood Count 8.11 K/ul (4.8-10.8)
[2022-04-08 07:48] LABS: Albumin Globulin Ratio 1.7 (0.9-2); Albumin Level 3.6 gm/dl (3.4-5.0); BUN Creatinine Ratio 14.6 (10-20); Bilirubin,Total 0.9 mg/dl (0.2-1.0); Calcium 8.9 mg/dl (8.5-10.1); Chol HDL Ratio 4.2 (0-5); Creatinine Clr Calc Pharmacy 81.4 ml/min; Est GFR (African American) 82.6 ml/min; Est GFR (Non-African American) 71.2 ml/min; Globulin 2.1 gm/dl (2.5-4.0); Potassium 4.5 mmol/L (3.5-5.1); Total Protein 5.7 gm/dl (6.0-8.3)
[2022-04-08 08:45] LABS: Estimated Average Glucose 100 mg/dl; Hemoglobin A1C 5.1 % (4.5-5.6)
[2022-04-08] MEDS ORDERED: CLOPIDOGREL BISULFATE 75 MG TAB PO SCH (09:00)
[2022-04-08] MEDS ORDERED: LOSARTAN POTASSIUM 25 MG TAB PO SCH (09:00)
[2022-04-08] MEDS ORDERED: PANTOprazole 40 MG TAB PO SCH (09:00)
[2022-04-08] MEDS ORDERED: TAMSULOSIN HCL 0.4 MG CAP PO SCH (09:00)
[2022-04-08] MEDS ORDERED: ISOSORBIDE MONO EXTENDED REL 60 MG TABCR PO SCH (09:00)
[2022-04-08] MEDS ORDERED: METOPROLOL SUCC 25MG EXT REL TAB PO SCH (09:00)
[2022-04-08] MEDS ORDERED: ATORVASTATIN 40 MG TAB PO SCH (09:00)
[2022-04-08] MEDS: RANOLAZINE 500 MG ER TAB PO SCH (09:45)
--- NOTE | 2022-04-08 12:01 | Cardiology Consultation ---
Date of Consultation April 08, 2022 Assessment & Plan (1) Chest pain: --Post CABG 2005 (THOMPSON to LAD, sequential SVG to diagonal/OM, sequential SVG to PDA/PLB) --PCI of distal SVG into right PDA with single TRINO; angioplasty of proximal SVG to right PLB2 PCI of proximal SVG to RPDA with single TRINO 10/2021 2. Hypertension 3. Dyslipidemia 4. GERD Patient here after episode exercise-induced dyspnea/fatigue and post exercise chest discomfort. Chest symptoms different than his prior angina. Serial ECGs unremarkable. HS TropI negative x2. Echo unchanged. Prior to recent event patient has been doing very well with cardiac rehab. Increasing exercise tolerance without symptoms. Low suspicion that current episode secondary to new high risk CAD. Feel from a cardiac standpoint he can be discharged without additional cardiac testing. Continue home DAPT with ASA/clopidogrel. Continue current Imdur, Ranexa, Toprol-XL and losartan. Continue statin. If no additional symptoms this week can return to cardiac rehab next week. Follow-up with cardiology as scheduled. History of Present Illness Attending Physician: Tim Claudio History of Present Illness Mr. Carlisle is a very pleasant 76-year-old man with a history of complex CAD post CABG and multiple prior PCI admitted for observation yesterday after acute episode of shortness of breath/presyncope and atypical chest pain at cardiac rehab. History of coronary artery disease post 5 vessel CABG in 2005 ([facility] [place], THOMPSON to LAD, sequential SVG to diagonal and OM, sequential SVG to PDA and PLB), hypertension, dyslipidemia, GERD, BPH. Previously underwent PCI with TRINO to distal SVG in the right PDA 05/2019. More recently PCI of proximal SVG to PDA 10/2021. Since that time has been doing well. Has been actively participating with cardiac rehab, completed 33 sessions. He is very pleased with cardiac rehab and states that overall has been feeling better than he has in some time. Yesterday when attempting to use a treadmill became short of breath, fatigued and felt as if he might pass out. Sat down for a period of time and afterwards had some chest discomfort different than his prior angina. No real relief with nitroglycerin. ECG at cardiac rehab, ED unremarkable. HS TropI negative x2. Telemetry unremarkable. Today feeling well, at baseline. No recurrent chest symptoms. Repeat limited echo today shows preserved LV function with no new wall motion abnormalities. RV again dilated. Prior cardiovascular studies: Cardiac cath/PCI 10/2021: Chronic occluded proximal LAD, ramus, ostial RPDA. P atent THOMPSON to LAD, SVG to ramus/OM 2. Patent stent SVG to PDA. 70% proximal SVG to PDA/PLB. Single TRINO 2.5 x 30 mm [place]; postdilated with 4.0 NC to SVG to PDA Lexiscan SPECT 06/2021: Negative for ischemia. Small fixed apical anterior/septal perfusion defect with normal wall motion, likely artifact, less likely small distal LAD infarct Echo 05/2021: EF 65%, moderate VH, RV mildly dilated, DD 1 normal normal estimated PASP Cardiac catheterization 05/2019: LMostial 50%, KLX837% proximal, D1100% proximal, LCx40 to 50% proximal. RCA-dominant 40% diffuse mid, 100% proximal PLB. THOMPSON to LAD patent, SVG to OM, diagonal patent, SVG to PLB/PDA patent until 99% stenosis prior to bifurcation of Y graft Lexiscan SPECT 01/2017negative, small, fixed apical anteroseptal defect. EF 68% Echo 01/2017: TDS, EF 60%, grade 1 diastolic dysfunction Allergies Allergy/AdvReac Type Severity Reaction Status Date / Time zolpidem [From Ambien] AdvReac Intermediate Confusion Verified 04/07/22 18:02 Home Medications Medication Instructions Recorded Confirmed Type antiarthritic combination no.2 900 900 mg PO QAM 03/10/19 04/07/22 History mg tablet (glucosamine-chondroitin) aspirin 81 mg tablet,delayed 81 mg PO HS 03/10/19 04/07/22 History release (Adult Aspirin Regimen) levothyroxine 75 mcg tablet 75 mcg PO DAILYBB 03/10/19 04/07/22 History (Synthroid) losartan 25 mg tablet (Cozaar) 25 mg PO QAM 03/10/19 04/07/22 History clopidogrel 75 mg tablet 75 mg PO QAM #30 tabs 06/03/19 04/07/22 Rx Saccharomyces boulardii 250 mg 250 mg PO DAILY 06/14/20 04/07/22 History capsule (Daily Probiotic (S. boulardii)) cholecalciferol (vitamin D3) 25 25 mcg PO DAILY 05/02/21 04/07/22 History mcg (1,000 unit) capsule pantoprazole 40 mg tablet,delayed 20 mg PO QAM 09/10/21 04/07/22 History release nitroglycerin 0.4 mg sublingual 0.4 mg sublingual UD PRN chest 11/05/21 04/07/22 Rx tablet (Nitrostat) pain #1 btl tamsulosin 0.4 mg capsule (Flomax) 0.4 mg PO DAILY #90 caps 11/28/21 04/07/22 Rx krill oil 1,000 mg-om3 130 mg-dha 1 cap PO DAILY 01/14/22 04/07/22 History 40 mg-epa 80 rr-oy9-soe-astax cap (Krill Oil ([place] 3 and 6)) qdpicxrkmhry-nxrzsmfs-krgolz tablet 1 tab PO DAILY 01/14/22 04/07/22 History isosorbide mononitrate 60 mg 60 mg PO DAILY #90 tabs 03/06/22 04/07/22 Rx tablet,extended release 24 hr metoprolol succinate 25 mg 25 mg PO DAILY 03/06/22 04/07/22 History tablet,extended release 24 hr ranolazine 1,000 mg 1,000 mg PO BID #180 tabs 03/06/22 04/07/22 Rx tablet,extended release,12 hr atorvastatin 80 mg tablet 80 mg PO DAILY 04/07/22 04/07/22 History Patient History Medical History CAD (coronary artery disease) GERD (gastroesophageal reflux disease) HLD (hyperlipidemia) HTN (hypertension) Hypothyroidism Obesity Surgical History History of cardiac cath History of heart artery stent S/P CABG x 5 Family History Father Coronary heart disease S/p CABG in his 60's. Mother Coronary heart disease at age 74 due to cardiac arrest. Social History Smoking Status: Never smoker Second Hand Exposure: No; Hx Alcohol Use: No Hx Substance Use: No Preferred Language: Frisian Communication Ability: Effective Director Rehabilitation Program Required: No Beliefs That Will Affect Care: None marital status: Current Living Situation: Spouse current occupation: Maintenance for [employer] Other Information That Helps Us Care for You: No Feels Safe at Home: Yes Assistive Devices: Glasses and Hearing Aid - Bilateral Review of Systems Review of Systems: All systems reviewed & are unremarkable except as noted in HPI & below Physical Exam Physical Exam: General: Comfortable HEENT: Sclerae anicteric, Mask in place No appreciable JVD Lungs: Clear to auscultation bilaterally, no crackles or wheezes Cardiac: Regular rate and rhythm, no murmurs. Vascular: 2+ radial pulses Abdomen: Soft, nontender Extremities: Well perfused, trace nonpitting edema Neuro: Nonfocal Psych: Alert orient x3, normal affect and mood Results & Data ([facility]) Vital Signs (Past 12 Hours) Vital Signs Temp Pulse Pulse Resp BP BP Pulse Ox 04/08/22 11:30 97.0 F L 62 14 137/80 95 04/08/22 07:51 97.9 F 57 L 145/83 H 98 04/08/22 07:19 63 04/08/22 00:55 59 L 04/08/22 01:32 97.5 F L 62 16 150/83 H 98 04/08/22 00:38 62 14 132/68 97 O2 Del Method 04/08/22 11:30 Room Air 04/08/22 07:51 Room Air 04/08/22 07:19 04/08/22 00:55 04/08/22 01:32 Room Air 04/08/22 00:38 Room Air PG Care Time/CCT Total # of Minutes Spent Total Time Spent with Patient: Total time spent is greater than 50% in coordination of care (as documented) at patient's floor/unit and/or counseling patient: Coding Level of Care Code 78741 INT INP/OBS CARE 3/75MIN Diagnoses Chest pain R07.9 Chest pain type: unspecified (1) Chest pain Chest pain type: unspecified Qualified Code(s): R07.9 - Chest pain, unspecified
--- NOTE | 2022-04-08 12:17 | Billing Data ---
Date of Service April 07, 2022 Coding Level of Care Code 89674 INT INP/OBS CARE
--- NOTE | 2022-04-08 14:46 | Discharge Summary ---
Date of Service April 08, 2022 Admission HPI Per Admitting Provider This is 76-year-old gentleman with a history of coronary artery disease status post CABG in 2005 and TRINO in the distal SVG in 10/2021, hypertension dyslipidemia GERD who presented to [facility] for evaluation of chest pain. Patient says that he was at cardiac rehab today working on the [email or web address] and overall doing quite well. He has not had any problems in cardiac rehab up until this time. He said that when he switched over to the treadmill he had a sensation that he was "about to pass out ", and also describes that his breathing was maybe a little more labored compared to prior. However, he did not have chest pain at this time. He said that it went away the more he walked, but then he developed symptoms again so he stopped the treadmill. The staff promptly got him over to a chair and did an EKG, which did not demonstrate acute changes. Shortly thereafter, he did develop a pressure- like chest pain described as around the area of the apex that radiated up towards his neck. He said that he was given nitroglycerin, and within 15 to 20 minutes, the pain did start getting better. This was significant to him because in the past, he has not had any relief from nitroglycerin. Cardiology notes reviewed, patient did have a cardiac catheterization in October 2021 which demonstrated "Chronic occluded proximal LAD, ramus, ostial RPDA. Patent THOMPSON to LAD, SVG to ramus/OM 2. Patent stent SVG to PDA. 70% proximal SVG to PDA/PLB. Single TRINO 2.5 x 30 mm Kartik; postdilated with 4.0 NC to SVG to PDA". His last echo in May 2021 demonstrated an EF of 65% with moderate LVH. Other than the event described above, patient describes that the only chest pain that he really experiences is with regards to his reflux. He is describes this pain is very different. He describes being otherwise in his normal health up through this time. No fevers, chills, sweats. No nausea, vomiting. In the ED, he was found to have normal vital signs. Admission labs demonstrated no appreciable metabolic or hematologic abnormalities. Initial troponin at 10. COVID-negative. Chest x-ray did not demonstrate any acute findings. ECG without any acute changes compared to prior. They received sublingual nitro, ASA 324, normal saline in the ED. Discharge Data Allergies Allergy/AdvReac Type Severity Reaction Status Date / Time zolpidem [From Ambien] AdvReac Intermediate Confusion Verified 04/07/22 18:02 Consultations 04/07/22 17:37 ED Decision to Admit Stat 04/07/22 18:40 Consult Cardiology Routine Hospital Course (1) Chest pain: This is 76-year-old gentleman with a history of coronary artery disease status post CABG in 2005 and TRINO in the distal SVG in 10/2021, hypertension dyslipidemia GERD who presented to [facility] for evaluation of chest pain. Chest Pain Patient reported presyncopal related symptoms while at cardiac rehab related to exertion with subsequent development of substernal chest pain relieved by nitroglycerin Work-up as follows: ECG at cardiac rehab and upon arrival without any acute changes compared to prior Initial troponin at 10, repeat pending Chest x-ray without any acute processes, no evidence of lower extremity edema Status post CABG in 2005 with TRINO placement in SVG in 10/2021 Presyncopal symptoms as well as substernal chest pain brought upon by exertion are concerning for a stable angina type picture. Noted that patient also has a history of reflux related chest pain, but he describes this is different -- though still on the differential. Lower suspicion for other vascular or VTE related process. Admit to a monitored bed EKG, nitroglycerin as needed Trend troponins x2 Continue PPI Appreciate cardiology consultation while here given complex coronary history and ?Need for repeat nuclear study versus catheterization while here Continue metoprolol, now seen, isosorbide, atorvastatin, aspirin, Plavix (2) CAD (coronary artery disease): CAD s/p CABG (2005), TRINO placement in SVG in 10/2021 - Follows with Dr. Obando in Cardiology - Continue DAPT with ASA and Plavix - Continue atorvastatin 80mg daily - Continue metoprolol, ranalozine, isosorbide - TTE (05/2021): LVEF 65%, moderate VH, RV mildly dilated, DD 1 normal normal estimated PASP (3) Hypothyroidism: Hypothyroidism - Continue levothyroxine (4) HTN (hypertension): HTN - Continue metoprolol, isosorbide, losartan (5) HLD (hyperlipidemia): HLD - Continue statin as above (6) GERD (gastroesophageal reflux disease): GERD - Continue pantoprazole Plan Code: Full Diet: HH PPX: SCDs Dispo: [facility] Discharge Plan Discharge Items Patient Disposition: Home - Self-Care Reason For Visit: CHEST PAIN Discharge Diagnosis: 1. Dizziness/lightheadedness while at cardiac rehab - resolved, has not recurred 2. Chest discomfort - no evidence of heart attack 3. Coronary Artery Disease Activity: As commented below Activity Comment: light activities only until you see [facility] Cardiology Non-emergency contact: Primary Care Provider and Water Conservation Specialist Call non-emergency contact if: you have any medication questions and your symptoms worsen Follow-up/Referrals: Alec Obando MD [Physician] - 04/10/22 1:00 pm Minnie Fernnades MD [Primary Care Provider] - 04/15/22 11:00 am Diet: Heart Healthy Addtl Attending Provider Instructions: Mr Carlisle, You were hospitalized after having had a brief episode of feeling dizzy/lightheaded while on the treadmill at cardiac rehab. You had some associated chest discomfort and a small amount of difficulty breathing. Here at [facility] your blood work for the heart did not show evidence of any heart attack. Your EKGs were normal. Your echocardiogram was normal / unchanged from prior echocardiogram. Telemetry heart monitoring was normal. We checked your blood pressures in multiple positions and these were normal making low blood pressure an unlikely cause of your dizziness. You were seen by Dr Obando from [facility] cardiology. He felt that your symptoms were not from your coronary artery disease. At this time we recommend the following - 1. no cardiac rehab until seen by Dr Obando and cleared to return 2. no heavy exertional activities at home until cleared by Dr Obando 3. no changes in any of your chronic heart medications 4. your platelets are chronically a little low relative to the normal range. Typically you run about 140-150. They were in the 110s while here. Exact cause was uncertain. Please have your CBC blood counts repeated within the next week to ensure they are stable. Return to [facility] if - * you have recurrent chest pains * you have to use nitroglycerin tablets for chest pain * you feel dizzy or lightheaded * you feel like you could pass out * you are short of breath * any other concerns It was our pleasure to care for you! -Dr Claudio Pending Studies at Discharge: No Stand-Alone Forms: My New [facility], Smoking Cessation Medications and DC Order Prescriptions: Continued nitroglycerin [Nitrostat] 0.4 mg tablet, sublingual 0.4 mg sublingual UD PRN (Reason: chest pain) Qty: 1 3RF Rx Instructions: 1 tab q5min for chest pain; max 3 doses in 15 minutes. isosorbide mononitrate 60 mg tablet extended release 24 hr 60 mg PO DAILY Qty: 90 3RF ranolazine 1,000 mg tablet extended release 12 hr 1,000 mg PO BID Qty: 180 3RF tamsulosin [Flomax] 0.4 mg capsule 0.4 mg PO DAILY Qty: 90 3RF Saccharomyces boulardii [Daily Probiotic (S. boulardii)] 250 mg capsule 250 mg PO DAILY cholecalciferol (vitamin D3) 25 mcg (1,000 unit) capsule 25 mcg PO DAILY aspirin [Adult Aspirin Regimen] 81 mg tablet,delayed release (DR/EC) 81 mg PO HS glucosamine-chondroitin 900 mg tablet 900 mg PO QAM levothyroxine [Synthroid] 75 mcg tablet 75 mcg PO DAILYBB losartan [Cozaar] 25 mg tablet 25 mg PO QAM pantoprazole 40 mg tablet,delayed release (DR/EC) 20 mg PO QAM metoprolol succinate 25 mg tablet extended release 24 hr 25 mg PO DAILY clopidogrel 75 mg Tablet 75 mg PO QAM Qty: 30 11RF Centrum Silver Tablet 1 tab PO DAILY Krill Oil (Success 3 and 6) 1000-130(40-80) mg Capsule 1 cap PO DAILY atorvastatin 80 mg Tablet 80 mg PO DAILY Discharge Orders: Discharge Order (Routine); Ordered 04/08/22 Ordered By: Tim Claudio Admission Data Admit Date/Time: 04/07/22 18:10 Attending Provider: Tim Claudio Admit Provider: Tim Bardales Primary Care Provider: Minnie Fernandes Other Providers: Alec Obando ; Tim Bardales Coding Diagnoses Chest pain R07.9 Chest pain type: unspecified CAD (coronary artery disease) I25.10 Associated angina: angina presence unspecified Coronary Disease-Associated Artery/Lesion type: unspecified vessel or lesion type [place] vs. transplanted heart: unspecified whether [place] or transplanted heart Hypothyroidism E03.9 HTN (hypertension) I10 Hypertension type: unspecified HLD (hyperlipidemia) E78.5 GERD (gastroesophageal reflux disease) K21.9
--- NOTE | 2022-04-08 15:02 | XCELERA ---
[id number]
--- NOTE | 2022-04-08 15:31 | Electrocardiogram Report ---
Test Reason : Blood Pressure : / mmHG Vent. Rate : 068 BPM Atrial Rate : 068 BPM P-R Int : 158 ms QRS Dur : 078 ms QT Int : 420 ms P-R-T Axes : 068 -19 050 degrees QTc Int : 446 ms Normal sinus rhythm Inferior-posterior infarct , age undetermined Abnormal ECG When compared with ECG of 07-APR-2022 15:23, No significant change was found Confirmed by Edmund Land ([id number]) on 04/08/2022 3:31:05 PM Referred By: REFERRED SELF Confirmed By:Edmund Land
[2022-04-08] MEDS ORDERED: ASPIRIN 81 MG ECTAB PO SCH (21:00)
== END 2022-04-08 16:00 | disposition home or self-care (01) ==
LOC: ED 15:06 → EDINP 15:06 → SUATTDRO 18:10 → 2N 04-08 00:38